=== PATIENT | male | born 1960 | race African-American/Black ===

== ENCOUNTER 2017-06-27 16:22 | Outpatient (CLI) | payer OTHER | END 2017-06-27 16:23 | disposition home or self-care (01) | LOC: BICRAD 16:22 | PROVIDERS: ATTEND Internal Medicine | DX: Z02.71 Encounter for disability determination (principal); M47.896 Other spondylosis, lumbar region | CPT/HCPCS: 72100 ==

== ENCOUNTER 2019-04-11 15:14 | Observation (INO) | payer OTHER, SELFPAY ==
[~2019-04-11 15:14] MED LIST: Iopamidol-370 76% 500 ML 1 ML ONE
[2019-04-11] MEDS ORDERED: Morphine 4 MG/ML VIAL ONE (15:37)
[2019-04-11] MEDS ORDERED: Nitroglycerin 2% Ointment 1 INCH/1 GM Packet ONE (15:37)
[2019-04-11] MEDS ORDERED: Aspirin Chewable 81 MG TAB ONE (15:37)
[2019-04-11] MEDS ORDERED: Ondansetron PF 4 MG/2 ML Vial ONE (15:37)
--- NOTE | 2019-04-11 16:00 | RAD ---
PORTABLE CHEST: 04/11/19 HISTORY: Left sided chest pain x3 days. Heart size is within normal limits. The lungs are clear of any infiltrative process. The lungs are so mewhat hyper expanded. IMPRESSION: No active intrathoracic disease. POS: OFF
[2019-04-11 16:03] LABS: #Basophils 0.1 thou/uL (0.0-0.2); #Eosinphils 0.2 thou/uL (0.0-0.7); #Lymphocytes 3.7 thou/uL (1.20-3.40); #Monocytes 0.7 thou/uL (0.11-0.59); #Neutrophils 5.5 thou/uL (1.40-6.50); %Basophils 0.9 % (0.0-1.0); %Lymphocytes 36.2 % (21.0-51.0); %Monocytes 6.8 % (0.0-10.0); %Neutrophils 54.2 % (42.0-75.0); Hemoglobin 15.5 g/dL (14.0-18.0); Mean Corpuscular HGB CONC 33.4 g/dL (32.0-36.0); Mean Corpuscular Hemoglobin 30.1 pg (27.0-31.0); Mean Corpuscular Volume 90.2 fL (78.0-98.0); Mean Platelet Volume 9.7 fL (7.4-10.4); Platelet Count 176 thou/uL (130-400); RBC Distribution Width 11.7 % (11.5-14.5); Red Blood Cell (RBC) Count 5.15 mill/uL (4.70-6.10); White Blood Cell (WBC) Count 10.2 thou/uL (4.8-10.8)
[2019-04-11 16:24] LABS: ALT (SGPT) 26 U/L (8-55); AST (SGOT) 17 U/L (5-34); Albumin 4.1 g/dL (3.5-5.0); Alkaline Phosphatase 115 U/L (40-110); Anion Gap 14 mmol/L (10-20); BUN (Urea Nitrogen) 14 mg/dL (8.4-25.7); Bilirubin, Total 0.5 mg/dL (0.2-1.2); Calc. Creatinine Clearance 0 mL/min (70-130); Calcium 9.4 mg/dL (7.8-10.44); Carbon Dioxide 29 mmol/L (22-29); Chloride 93 mmol/L (98-107); Estimated GFR-MDRD 57; Globulin 2.9 g/dL (2.4-3.5); Glucose 511 mg/dL (70-105); Lipase 16 U/L (8-78); Potassium 4.6 mmol/L (3.5-5.1); Sodium 131 mmol/L (136-145)
[2019-04-11 16:42] LABS: Free T4 (Free Thyroxine) 1.48 ng/dL (0.70-1.48); Thyroid Stimulating Hormone 0.9691 uIU/mL (0.35-4.94)
--- NOTE | 2019-04-11 17:30 | CT ---
CT ANGIO OF CHEST PERFORMED WITH INTRAVENOUS CONTRAST ENHANCEMENT WITH 3D RECONSTRUCTIONS: 04/11/19 HISTORY: Chest pain. History of smoking. There are severe emphysematous lung changes seen. There is a small pleural based 5 to 6 mm right uppe r lobe pulmonary nodule. There is also a tiny 2 to 3 mm nodule within the left base near the left cos tophrenic angle. No significant mediastinal or hilar adenopathy is appreciated. The thoracic aorta is normal in calibe r. There is suboptimal pulmonary artery opacification. I see no evidence for any large central pulmon ricardo embolus. Suggestion there may be some wall thickening to the distal esophagus raising the possibi lity of reflux. The visualized liver is normal in appearance. IMPRESSION: 1. Severe COPD change. 2. Somewhat limited examination for pulmonary embolus. Bolus is less than optimal but I see no s igns of any central emboli. Small peripheral emboli would not be definitely excluded. 3. Coronary calcifications incidentally seen. POS: [facility]
[2019-04-11] MEDS ORDERED: Dextrose 50% Abboject 50 ML SYRINGE SLOW IVP PRN (18:07)
[2019-04-11] MEDS ORDERED: Acetaminophen 650 MG Suppository PR PRN (18:07)
[2019-04-11] MEDS ORDERED: Ondansetron ODT 4 MG TAB PO PRN (18:07)
[2019-04-11] MEDS ORDERED: Ondansetron PF 4 MG/2 ML Vial IVP PRN (18:07)
[2019-04-11] MEDS ORDERED: Dextrose 5% in Water 1,000 ML IV PRN (18:07)
[2019-04-11 18:08] LABS: Bilirubin Negative (Negative); Blood, Urine Negative (Negative); Clarity Clear (Clear); Glucose, Urine (Dipstick) Greater than 1000 mg/dL (Negative); Leukocyte Negative Leu/uL (Negative); Nitrite Negative (Negative); Protein, Urine (Dipstick) Negative (Neg-Trace); Urobilinogen Normal mg/dL (Less than 2)
--- NOTE | 2019-04-11 18:15 | PDOC.HHP ---
Hospitalist HPI - History of Present Illness N/V x 3 days with chest pain History of Present Illness: Patient states he has had n/v for the last 3 days unable to tolerate anything by mouth. He tries to eat or drink and 10 minutes later begins to vomit excessively. He states the chest pain only occurs once he begins to vomit. He describes a pain across his chest and failing as if his lungs as stretching and he cant get air in as he vomits. Denies any hematemesis. When he is not vomiting, he does not experience chest pain, sob or abdominal pain. Denies any recent cough. He previously smoked, but quit in 03/2018. He denies any diarrhea and has not had a bowel movement in 2-3 days which he feels is due to not being able to keep food down. Denies any abdominal distention. No urinary symptoms. Has not had any recent travels. Reports drinking 2 beers every 4-5 days. Denies any drug use. At present he denies any complaints and states he feels significantly better. ED Course: In the ED he had an EKG showing Sinus Tachycardia, HR [address] changes or Twave abnormalities. He was given Morphine 4 mg, 324 mg of ASA and Nitro Transdermal 1 inch. Also he was given 1 L NS Given tachycardia a CTA was ordered. Labs done were notable for a glucose of 511. CMP notable for Na+ 131, Creat of 1.52, GFR 57, Glucose 511. D-dimer 0.48 Alk phos 115. LFTs normal and lipase normal. CXR showed no acute changes. UA ordered and pending. Hospitalist ROS - Review of Systems Constitutional: denies: fever, chills, sweats, weakness, malaise, other Eyes: denies: pain, vision change, conjunctivae inflammation, eyelid inflammation, redness, other ENT: reports: other (dry mouth). denies: ear pain, ear discharge, nose pain, nose discharge, nose congestion, mouth pain, mouth swelling, throat pain, throat swelling Respiratory: denies: cough, dry, shortness of breath, hemoptysis, SOB with excertion, pleuritic pain, sputum, wheezing, other Cardiovascular: reports: chest pain (brought on by vomiting and lasts 10 seconds.). denies: palpitations, orthopnea, paroxysmal noc. dyspnea, edema, light headedness, other Gastrointestinal: reports: nausea, vomiting (with oral intake). denies: abdominal pain, diarrhea, constipation, melena, hematochezia, other Genitourinary: denies: dysuria, frequency, incontinence, hematuria, retention, other Musculoskeletal: denies: neck pain, shoulder pain, arm pain, back pain, hand pain, leg pain, foot pain, other Skin: denies: rash, lesions, jazlyn, bruising, other Neurological: denies: weakness, numbness, incoordination, change in speech, confusion, seizures, other Hospitalist History - Past Medical History Source: patient Cardiac: reports: HTN Pulmonary: reports: no pertinent history Endocrine: reports: Diabetes - Family History Family History: reports: no pertinent history - Social History Smoking Status: Former smoker (quit in 03/2018) Alcohol: reports: Occassional (2-3 beers a week) Drugs: reports: none Living Situation: Alone Activity level: independent ambulation - Exam General Appearance: NAD, awake alert Eye: PERRL ENT: normocephalic atraumatic, no oropharyngeal lesions, dry oral mucosa Neck: supple, symmetric, no JVD, no thyromegaly, no lymphadenopathy, no carotid bruit Heart: RRR, no murmur, no gallops, no rubs, normal peripheral pulses Respiratory: CTAB, no wheezes, no rales, no ronchi, normal chest expansion, no tachypnea, normal percussion Gastrointestinal: soft, non-tender, non-distended, normal bowel sounds ( hyperactive bowel sounds), no palpable masses, no hepatomegaly, no guarding, no rigidity Extremities: no cyanosis, no clubbing, no edema Skin: normal turgor, no lesions, no rashes Neurological: cranial nerve grossly intact, normal sensation to touch, no weakness, no focal deficits, no new deficit Musculoskeletal: normal tone, normal strength, no muscle wasting Psychiatric: normal affect, normal behavior, A&O x 3 Hospitalist Results - Labs Result Diagrams: 04/11/19 15:42 04/11/19 15:42 Lab results: WBC 10.2 thou/uL (4.8-10.8) 04/11/19 15:42 Hgb 15.5 g/dL (14.0-18.0) 04/11/19 15:42 Hct 46.4 % (42.0-52.0) 04/11/19 15:42 MCV 90.2 fL (78.0-98.0) 04/11/19 15:42 Plt Count 176 thou/uL (130-400) 04/11/19 15:42 Neutrophils % 54.2 % (42.0-75.0) 04/11/19 15:42 Sodium 131 mmol/L (136-145) L 04/11/19 15:42 Potassium 4.6 mmol/L (3.5-5.1) 04/11/19 15:42 Chloride 93 mmol/L (98-107) L 04/11/19 15:42 Carbon Dioxide 29 mmol/L (22-29) 04/11/19 15:42 BUN 14 mg/dL (8.4-25.7) 04/11/19 15:42 Creatinine 1.52 mg/dL (0.7-1.3) H 04/11/19 15:42 Glucose 511 mg/dL (70-105) H 04/11/19 15:42 Calcium 9.4 mg/dL (7.8-10.44) 04/11/19 15:42 Total Bilirubin 0.5 mg/dL (0.2-1.2) 04/11/19 15:42 AST 17 U/L (5-34) 04/11/19 15:42 ALT 26 U/L (8-55) 04/11/19 15:42 Alkaline Phosphatase 115 U/L (40-110) H 04/11/19 15:42 Troponin I Less than 0.010 ng/mL (< 0.028) 04/11/19 15:42 B-Natriuretic Peptide 20.3 pg/mL (0-100) 04/11/19 15:42 Serum Total Protein 7.0 g/dL (6.0-8.3) 04/11/19 15:42 Albumin 4.1 g/dL (3.5-5.0) 04/11/19 15:42 Lipase 16 U/L (8-78) 04/11/19 15:42 Urine Ketones 10 mg/dL (Negative) A 04/11/19 18:00 Urine Blood Negative (Negative) 04/11/19 18:00 Urine Nitrite Negative (Negative) 04/11/19 18:00 Ur Leukocyte Esterase Negative Марина/uL (Negative) 04/11/19 18:00 - Radiology Interpretation CT scan - chest Status: report reviewed by me Hospitalist H&P A/P - Problem (1) Atypical chest pain Code(s): R07.89 - OTHER CHEST PAIN Status: Resolved (2) Nausea and vomiting Code(s): R11.2 - NAUSEA WITH VOMITING, UNSPECIFIED Status: Acute (3) JAQUELINE (acute kidney injury) Code(s): N17.9 - ACUTE KIDNEY FAILURE, UNSPECIFIED Status: Acute (4) Hypertension Code(s): I10 - ESSENTIAL (PRIMARY) HYPERTENSION Status: Chronic (5) Hyperglycemia Code(s): R73.9 - HYPERGLYCEMIA, UNSPECIFIED Status: Acute (6) Diabetes mellitus Code(s): E11.9 - TYPE 2 DIABETES MELLITUS WITHOUT COMPLICATIONS Status: Chronic (7) Former smoker Status: Chronic - Plan Plan: Trend troponins. Echo ordered per discussion with Dr. Tinoco. Continuous cardiac monitoring. Awaiting CTA ordered by Dr. Ty. UDS/UA w/ UCx. Check alcohol level. Add-on Mg+, BNP, Lipid panel. KUB Monitor renal function. Pseudohyponatremia, due to hyperglycemia. Monitor glucose, sliding scale ordered. Check ketones. IV protonix and IV antiemetics. Diet: clear liquid, advance as tolerated. CODE STATUS: FULL Surrogate decision maker is his friend Devanteneela Arnold. ADDENDUM: Discussed with Dr. Tinoco. CTA negative for PE. KUB unremarkable. Patient severely dehydrated, advised 1L NS, then NS at 150 cc/hr. Monitor glucose, likely to come down with fluids.
[2019-04-11 18:36] LABS: Amphetamine Not Detected (NotDetected); Barbiturates Screen Not Detected (NotDetected); Benzodiazepine Screen Not Detected (NotDetected); Cocaine Metabolite Screen Detected (NotDetected); Medtox Control Line Valid? VALID (VALID); Medtox Reader # READER 4; Methadone Not Detected (NotDetected); Methamphetamine Not Detected (NotDetected); Opiate Screen Detected (NotDetected); Oxycodone Screen Not Detected (NotDetected); Phencyclidine (PCP) Not Detected (NotDetected); THC/Cannabinoid Screen Detected (NotDetected); Tricyclic Screen Not Detected (NotDetected)
--- NOTE | 2019-04-11 18:38 | RAD ---
KUB: 04/11/19 HISTORY: Left sided pain. Constipation. The bowel gas pattern is nonobstructed. There is a mild amount of stool present within the right rolle sverse colon. Contrast from a previous CT is seen within the kidneys and bladder. Mild arthritic lerner ges of the spine and hips are seen. IMPRESSION: No acute changes. POS: [facility]
[2019-04-11] MEDS ORDERED: Sodium Chloride 0.45% 1,000 ML IV SCH (18:45)
[2019-04-11 19:10] LABS: Phosphorus 2.9 mg/dL (2.3-4.7)
[2019-04-11 19:10] LABS: Troponin I 0.019 ng/mL (< 0.028)
[2019-04-11] MEDS ORDERED: Sodium Chloride 0.9% 1,000 ML IV SCH (19:15)
[2019-04-11 20:35] VITALS: BMI 19.2
[2019-04-11] MEDS ORDERED: Famotidine/PF 20 mg/2ml Vial SLOW IVP SCH (21:00)
[2019-04-11] MEDS: HumaLOG 300 UNITS/3 ML VIAL SC PRN (21:01)
[2019-04-11] MEDS: Sodium Chloride 0.9% 1,000 ML IV SCH (21:09)
[2019-04-11 22:30] LABS: Alcohol Less than 10 mg/dL (Less than 10); CK (CPK) 155 U/L (30-200)
[2019-04-11 22:35] LABS: Troponin I 0.015 ng/mL (< 0.028)
[2019-04-12] MEDS: Sodium Chloride 0.9% 1,000 ML IV SCH ×2 (04:04→12:13)
[2019-04-12 05:31] LABS: #Basophils 0.1 thou/uL (0.0-0.2); #Eosinphils 0.3 thou/uL (0.0-0.7); #Lymphocytes 4.3 thou/uL (1.20-3.40); #Monocytes 0.6 thou/uL (0.11-0.59); #Neutrophils 4.2 thou/uL (1.40-6.50); %Basophils 0.5 % (0.0-1.0); %Eosinophils 2.8 % (0.0-10.0); %Lymphocytes 45.7 % (21.0-51.0); %Monocytes 6.7 % (0.0-10.0); %Neutrophils 44.3 % (42.0-75.0); Hemoglobin 12.5 g/dL (14.0-18.0); Mean Corpuscular HGB CONC 34.8 g/dL (32.0-36.0); Mean Corpuscular Hemoglobin 31.8 pg (27.0-31.0); Mean Corpuscular Volume 91.5 fL (78.0-98.0); Mean Platelet Volume 9.2 fL (7.4-10.4); Platelet Count 153 thou/uL (130-400); RBC Distribution Width 11.6 % (11.5-14.5); Red Blood Cell (RBC) Count 3.93 mill/uL (4.70-6.10); White Blood Cell (WBC) Count 9.4 thou/uL (4.8-10.8)
[2019-04-12 05:36] LABS: Anion Gap 9 mmol/L (10-20); BUN (Urea Nitrogen) 10 mg/dL (8.4-25.7); Calc. Creatinine Clearance 82 mL/min (70-130); Calcium 8.1 mg/dL (7.8-10.44); Carbon Dioxide 26 mmol/L (22-29); Chloride 104 mmol/L (98-107); Estimated GFR-MDRD Greater than 90; Glucose 238 mg/dL (70-105); Potassium 3.8 mmol/L (3.5-5.1); Sodium 135 mmol/L (136-145)
[2019-04-12] MEDS: HumaLOG 300 UNITS/3 ML VIAL SC PRN ×3 (06:11→21:00)
[2019-04-12] MEDS: Aspirin 81 mg Enteric Coated Tablet PO SCH (08:48)
[2019-04-12] MEDS: Pantoprazole 40 MG VIAL IVP SCH (08:49)
[2019-04-12] MEDS ORDERED: Lisinopril 5 MG TAB PO SCH (09:00)
--- NOTE | 2019-04-12 13:12 | NM ---
EXAM: CARDIAC SPECT HISTORY: Chest pain, hypertension, diabetes mellitus type 2 TECHNIQUE: A myocardial perfusion scan was performed using the single isotope 1 day protocol with papa hnetium 99m sestamibi. [10 mCi] was injected intravenously for the rest exam followed by 30 mCi for the stress study. Exercise stress was monitored and interpreted by Dr. Ulloa FINDINGS: Homogeneous tracer distribution is seen in the myocardial segments on stress and rest image s without fixed or reversible defects. Gated SPECT LVEF: 47% Wall motion exam: Mild global hypokinesis IMPRESSION: No evidence of reversible ischemia.
[2019-04-12] MEDS: Carvedilol 6.25 MG TAB PO SCH (16:18)
--- NOTE | 2019-04-12 18:17 | PDOC.HOSPP ---
- Subjective Encounter Date: 04/12/19 Encounter Time: 18:14 Subjective: Pt seen for followup re: cardiomyopathy. States he feels better. - Objective Vital Signs & Weight: Vital Signs (12 hours) Temp Pulse Resp BP Pulse Ox 04/12/19 15:20 98.4 F 92 17 160/81 H 98 04/12/19 12:40 97.8 F 86 18 141/71 H 98 04/12/19 08:49 94 04/12/19 07:28 98.2 F 94 16 132/72 97 Weight Weight 150 lb I&O: 04/11/19 04/12/19 04/13/19 06:59 06:59 06:59 Intake Total 1999 1190 Balance 1999 1190 Result Diagrams: 04/12/19 04:49 04/12/19 04:49 Additional Labs: Accuchecks 04/12/19 04/12/19 04/11/19 16:22 12:40 21:00 POC Glucose 351 H 250 H 424 H 04/11/19 18:56 POC Glucose 421 H Labs and MARs reviewed by mt Hospitalist ROS - Review of Systems Cardiovascular: denies: chest pain, palpitations, orthopnea, paroxysmal noc. dyspnea, edema, light headedness Gastrointestinal: denies: nausea, vomiting, abdominal pain, diarrhea, constipation, melena, hematochezia - Medication Medications: Active Medications Generic Name Dose Route Start Last Admin Trade Name Freq PRN Reason Stop Dose Admin Aspirin 81 mg 04/12/19 09:00 04/12/19 08:48 Ecotrin PO 81 mg DAILY MO Administration Carvedilol 6.25 mg 04/12/19 17:00 04/12/19 16:18 Coreg PO 6.25 mg BID-WM MO Administration Insulin Human Lispro 0 units 04/11/19 18:07 04/12/19 16:53 Humalog SC 6 unit .MILD SLIDING SCALE PRN Administration Mild Correctional Scale Insulin Human Lispro 0 units 04/11/19 18:07 04/11/19 21:01 Humalog SC 5 unit .BEDTIME SLIDING SC PRN Administration Bedtime Correctional Scale Pantoprazole Sodium 40 mg 04/12/19 09:00 04/12/19 08:49 Protonix IVP 40 mg DAILY MO Administration - Exam General Appearance: NAD Eye: anicteric sclera ENT: moist mucosa Neck: supple Heart: RRR, no rubs Respiratory: CTAB, no rales Gastrointestinal: soft, non-tender, normal bowel sounds Extremities: no clubbing Psychiatric: normal affect, normal behavior Hosp A/P (1) Cardiomyopathy Code(s): I42.9 - CARDIOMYOPATHY, UNSPECIFIED Status: Acute (2) Hyponatremia Code(s): E87.1 - HYPO-OSMOLALITY AND HYPONATREMIA Status: Acute (3) Diabetes mellitus Code(s): E11.9 - TYPE 2 DIABETES MELLITUS WITHOUT COMPLICATIONS Status: Chronic (4) Hypertension Code(s): I10 - ESSENTIAL (PRIMARY) HYPERTENSION Status: Chronic (5) Chest pain Code(s): R07.9 - CHEST PAIN, UNSPECIFIED Status: Resolved (6) JAQUELINE (acute kidney injury) Code(s): N17.9 - ACUTE KIDNEY FAILURE, UNSPECIFIED Status: Resolved - Plan Pt started on Coreg and lisinopril. Stress test negative. hyponatremia mild, likely asymptomatic. Monitor vital signs, titrate antihypertensives as needed. Resume home Lantus
[2019-04-12] MEDS ORDERED: Insulin Glargine 10 UNITS in Pre-Filled Syringe SC SCH (21:00)
[2019-04-12] MEDS ORDERED: Atorvastatin Calcium 20 MG TAB PO SCH (21:00)
[2019-04-12] MEDS: Lisinopril 5 MG TAB PO SCH (21:01)
--- NOTE | 2019-04-12 22:21 | CON ---
DATE OF CONSULTATION: HISTORY OF PRESENT ILLNESS: This patient is a 58-year-old gentleman, presented with nausea, vomiting, and chest discomfort. The patient was in his usual state of health when he recently developed nausea and vomiting. Whenever he throws up, he would develop chest discomfort. The patient states when this resolved, he has had no further chest discomfort. The patient has several cardiac risk factors including diabetes mellitus, hypertension, and a past history of tobacco abuse. PAST MEDICAL HISTORY: 1. Diabetes mellitus. 2. Hypertension. PAST SURGICAL HISTORY: None. SOCIAL HISTORY: Long history of tobacco abuse and a previous history of excess ethanol use. FAMILY HISTORY: No strong family history of heart disease. ALLERGIES: NO KNOWN DRUG ALLERGIES. REVIEW OF SYSTEMS: Ten-point system otherwise unremarkable. PHYSICAL EXAMINATION: GENERAL: A well-developed gentleman, in no acute distress. VITAL SIGNS: Blood pressure is 141/70. NECK: No jugular venous distention. LUNGS: Clear to auscultation. HEART: Regular rate and rhythm. Normal S1, S2. No murmurs. ABDOMEN:Nondistended. EXTREMITIES: Show no edema. VASCULAR: Radial pulses 2+. LABORATORY DATA: Sodium 135, potassium 3.8, chloride 104, bicarbonate 26, BUN was 10, and creatinine was 0.94. Troponin was 0.015. BNP was 20. EKG revealed sinus tachycardia and left atrial enlargement. Cardiolite stress test: The patient exercised for 7 minutes on a Abdirizak Cardiolite. He did not develop chest pain. There was no significant ST depression. Normal exercise treadmill test. Cardiolite images revealed no evidence of ischemia. Left ventricular ejection fraction was diminished at 47%. Echocardiogram revealed moderate decreased left ventricular ejection fraction at 35% to 40% with global hypokinesis. IMPRESSION: 1. Atypical chest pain with no evidence of ischemia. 2. Cardiomyopathy. 3. Diabetes mellitus. 4. Hypertension. 5. Ethanol abuse. This gentleman presented with atypical chest pain with no evidence of ischemia on an exercise treadmill test or on Cardiolite images. He most likely has a nonischemic cardiomyopathy. The patient needs to be started on beta-bridgette therapy. We will add Coreg. We will increase the dose of his lisinopril. It is imperative this patient no longer consume alcohol. We will follow this patient with you through his hospitalization. Job ID: [id number] [facility]
[2019-04-13 08:03] VITALS: BP 131/70; TEMP 98.4
[2019-04-13] MEDS: Aspirin 81 mg Enteric Coated Tablet PO SCH (08:12)
[2019-04-13] MEDS: Lisinopril 5 MG TAB PO SCH (08:12)
[2019-04-13] MEDS: Carvedilol 6.25 MG TAB PO SCH (08:12)
[2019-04-13] MEDS: Pantoprazole 40 MG VIAL IVP SCH ×2 (08:13→08:59)
[2019-04-13] MEDS ORDERED: Insulin Glargine 20 UNITS in Pre-Filled Syringe SC SCH (09:00)
--- NOTE | 2019-04-13 12:28 | DIS ---
DATE OF ADMISSION: 04/11/2019 DATE OF DISCHARGE: 04/13/2019 DISCHARGE DISPOSITION: To home. PRIMARY DISCHARGE DIAGNOSES: 1. Chest pain, which is noncardiac. 2. Nonischemic cardiomyopathy with ejection fraction of 35%. 3. Cocaine abuse. 4. Marijuana abuse. 5. Diabetes mellitus, type 2. 6. Hypertension. 7. Chronic obstructive pulmonary disease. PROCEDURES DONE DURING HOSPITALIZATION: The patient has had echo with 2D Doppler done, which showed EF of 35% with global hypokinesis. Stress test showed no reversible ischemia. Urine drug screen was positive for cocaine, marijuana, and opiates. CT angio chest done showed changes suggestive of COPD. Coronary calcifications were seen. No pulmonary embolus was seen. H and H of 12 and 35, platelet count 153. Troponin x3 was negative. Free T4 of 1.48. TSH 0.96. BNP 20. DISCHARGE MEDICATIONS: 1. Aspirin 81 mg p.o. daily. 2. Enalapril 5 mg p.o. daily. 3. Lantus 20 units subcu q.a.m. and at bedtime. 4. Coreg 6.25 mg twice daily. ALLERGIES: NO KNOWN DRUG ALLERGIES. INPATIENT CONSULT: Dr. Ulloa for Cardiology. DISCHARGE PLAN: The patient to follow up with his primary care physician, Dr. Hardin in 1 week, Dr. Ulloa as advised. BRIEF COURSE DURING HOSPITALIZATION: The patient initially came in with complaints of chest pain along with nausea and vomiting. He has had 3 sets of troponin done, which was negative. Nuclear stress test showed no reversible ischemia, but had global hypokinesis. Urine drug screen was positive for cocaine and marijuana. He initially had some acute kidney injury, which got resolved. Echo with 2D Doppler done showed EF of 35% to 40% percent with moderate mitral regurgitation. He was evaluated by Dr. Ulloa as well. The patient is hemodynamically stable and is cleared for discharge. He was counseled with regard to complete cessation of alcohol and drugs. He was also counseled with regard to compliance with medication. The patient needs to have a repeat echo with 2D Doppler in 6 months to see if his EF has improved. He needs to follow up with Dr. Ulloa as advised. Please note, I have seen and examined the patient on the day of discharge. Job ID: [id number] [facility]
[2019-04-13] MEDS ORDERED: Insulin Glargine 20 UNITS in Pre-Filled Syringe 1 EACH SC SCH (21:00)
== END 2019-04-13 10:32 | disposition home or self-care (01) ==
LOC: ERS 15:14 → 2SW 17:12
PROVIDERS: ADMIT Family Medicine; ATTEND Family Medicine
DX: R07.89 Other chest pain (principal); I42.8 Other cardiomyopathies; F14.10 Cocaine abuse, uncomplicated; F12.10 Cannabis abuse, uncomplicated; E11.65 Type 2 diabetes mellitus with hyperglycemia; I10 Essential (primary) hypertension; J44.9 Chronic obstructive pulmonary disease, unspecified; N17.9 Acute kidney failure, unspecified; I25.10 Atherosclerotic heart disease of native coronary artery without angina pectoris; E87.1 Hypo-osmolality and hyponatremia; F10.10 Alcohol abuse, uncomplicated; Z87.891 Personal history of nicotine dependence; Z79.4 Long term (current) use of insulin; Z79.82 Long term (current) use of aspirin; Z79.899 Other long term (current) drug therapy
CPT/HCPCS: 36415; 36416; 71045; 71275; 74018; 78452; 80048; 80053; 80306; 80307; 81003; 82010; 82550; 83690; 83735; 83880; 84100; 84439; 84443; 84484; 85025; 85379; 93005; 93017; 93306; 96361; 96374; 96375; A9500; C9113; G0378; J1815; J2270; J2405; Q9967

== ENCOUNTER 2020-01-25 14:59 | Outpatient (CLI) | payer OTHER ==
--- NOTE | 2020-01-25 16:59 | RAD ---
Exam: Lumbar spine 2 views HISTORY: Disability evaluation FINDINGS: 5 lumbar type vertebra. Pseudoarthrosis of the left L5 ala with the sacrum. Preserved disc space height. No fracture. No spondylolisthesis or spondylolysis. Visualized sacrum and bony pelvis are intact. IMPRESSION: 5 lumbar type vertebra, without evidence of fracture. Pseudoarthrosis of the left L5 ala and the sacrum.
--- NOTE | 2020-01-26 07:49 | RAD ---
Exam: XR Knee Rt 2 View HISTORY: Disability exam. COMPARISON: None FINDINGS: No acute fracture, dislocation, or other acute osseous abnormality is identified. Minimal vascular calcifications are seen posterior to the knee. IMPRESSION: No acute osseous abnormality is identified.
--- NOTE | 2020-01-26 08:55 | RAD ---
2 VIEW CHEST: Date: 01/25/2020 HISTORY: Disability evaluation. FINDINGS: Lung garcia are clear. Heart and mediastinum appear normal. Osseous structures are unremarkable. IMPRESSION: Unremarkable chest. POS: OFF
== END 2020-01-25 15:00 | disposition home or self-care (01) ==
LOC: BICRAD 14:59
PROVIDERS: ATTEND Internal Medicine
DX: Z02.71 Encounter for disability determination (principal); Q76.49 Other congenital malformations of spine, not associated with scoliosis
CPT/HCPCS: 71046; 72100

== ENCOUNTER 2020-07-19 04:08 | Emergency (ER) | payer SELFPAY ==
[2020-07-19] MEDS ORDERED: Dextrose 50% Abboject 50 ML SYRINGE ONE (05:03)
== END 2020-07-19 06:50 | disposition home or self-care (01) ==
LOC: ERS 04:08
DX: E11.649 Type 2 diabetes mellitus with hypoglycemia without coma (principal); I10 Essential (primary) hypertension; Z87.891 Personal history of nicotine dependence
CPT/HCPCS: 36416; 96374

== ENCOUNTER 2020-07-20 15:01 | Inpatient (IN) | payer SELFPAY ==
[2020-07-20 15:55] LABS: #Monocytes 0.9 thou/uL (0.11-0.59); #Neutrophils 12.1 thou/uL (1.40-6.50); %Basophils 0.2 % (0.0-1.0); %Lymphocytes 13.2 % (21.0-51.0); %Monocytes 5.8 % (0.0-10.0); %Neutrophils 80.7 % (42.0-75.0); Hemoglobin 15.7 g/dL (14.0-18.0); Mean Corpuscular HGB CONC 32.5 g/dL (32.0-36.0); Mean Corpuscular Hemoglobin 30.9 pg (27.0-31.0); Platelet Count 231 thou/uL (130-400); RBC Distribution Width 12.8 % (11.5-14.5); Red Blood Cell (RBC) Count 5.07 mill/uL (4.70-6.10); White Blood Cell (WBC) Count 14.9 thou/uL (4.8-10.8)
[2020-07-20 16:14] LABS: ALT (SGPT) 39 U/L (8-55); AST (SGOT) 57 U/L (5-34); Albumin 4.4 g/dL (3.5-5.0); Alkaline Phosphatase 87 U/L (40-110); Anion Gap 14 mmol/L (10-20); BUN (Urea Nitrogen) 13 mg/dL (8.4-25.7); Bilirubin, Total 0.5 mg/dL (0.2-1.2); Calc. Creatinine Clearance 0 mL/min (70-130); Calcium 9.2 mg/dL (7.8-10.44); Carbon Dioxide 31 mmol/L (22-29); Chloride 95 mmol/L (98-107); Globulin 3.2 g/dL (2.4-3.5); Lipase 5 U/L (8-78); Potassium 3.9 mmol/L (3.5-5.1); Protein, Total 7.6 g/dL (6.0-8.3); Sodium 136 mmol/L (136-145)
[2020-07-20] MEDS ORDERED: Acetaminophen 500 MG TAB ONE (16:20)
[2020-07-20 16:23] LABS: Glucose 53 mg/dL (70-105)
[2020-07-20 17:16] LABS: Bacteria/HPF None Seen HPF (None Seen); Bilirubin Negative (Negative); Blood, Urine Negative (Negative); Clarity Clear (Clear); Glucose, Urine (Dipstick) >=1000 mg/dL (Negative); Ketone, Urine Negative (Negative); Leukocyte Negative Leu/uL (Negative); Nitrite Negative (Negative); Protein, Urine (Dipstick) 100 mg/dL (Neg-Trace); RBC/HPF 0-3 HPF (0-3); Specific Gravity, Urine 1.023 (1.002-1.036); Squamous Epithelial 0-3 HPF (0-3); Urobilinogen Normal mg/dL (Less than 2); WBC/HPF 0-3 HPF (0-3); pH, Urine 7.5 (5.0-9.0)
[2020-07-20 19:58] VITALS: BMI 24.9
[2020-07-20] MEDS ORDERED: Ondansetron PF 4 MG/2 ML Vial IVP PRN (20:53)
[2020-07-20] MEDS ORDERED: Dextrose 50% Abboject 50 ML SYRINGE SLOW IVP PRN (20:53)
[2020-07-20] MEDS ORDERED: Dextrose 5% in Water 1,000 ML IV PRN (20:53)
[2020-07-20] MEDS ORDERED: Ondansetron ODT 4 MG TAB PO PRN (20:53)
[2020-07-21] MEDS ORDERED: Piperacillin/Tazobactam 4.5 GM in Sodium Chloride 0.9% 100 ML IVPB SCH (03:00)
[2020-07-21 04:15] LABS: SARS-CoV-2 PCR by NAA Not Detected (NotDetected)
[2020-07-21 04:20] LABS: Amphetamine Not Detected (NotDetected); Barbiturates Screen Not Detected (NotDetected); Benzodiazepine Screen Not Detected (NotDetected); Cocaine Metabolite Screen Detected (NotDetected); Medtox Control Line Valid? VALID (VALID); Medtox Reader # READER 4; Methadone Not Detected (NotDetected); Methamphetamine Not Detected (NotDetected); Opiate Screen Not Detected (NotDetected); Oxycodone Screen Not Detected (NotDetected); Phencyclidine (PCP) Not Detected (NotDetected); THC/Cannabinoid Screen Detected (NotDetected); Tricyclic Screen Not Detected (NotDetected)
[2020-07-21] MEDS: HumaLOG 300 UNITS/3 ML VIAL SC PRN ×3 (06:26→18:04)
[2020-07-21] MEDS: Enoxaparin Sodium 40 MG/0.4 ML SYRINGE SC SCH (09:34)
[2020-07-21 11:26] LABS: #Basophils 0.1 thou/uL (0.0-0.2); #Eosinphils 0.2 thou/uL (0.0-0.7); #Lymphocytes 3.1 thou/uL (1.20-3.40); #Monocytes 1.2 thou/uL (0.11-0.59); #Neutrophils 8.7 thou/uL (1.40-6.50); %Basophils 0.8 % (0.0-1.0); %Eosinophils 1.5 % (0.0-10.0); %Lymphocytes 23.4 % (21.0-51.0); %Monocytes 8.7 % (0.0-10.0); %Neutrophils 65.6 % (42.0-75.0); Hemoglobin 16.8 g/dL (14.0-18.0); Mean Corpuscular HGB CONC 32.7 g/dL (32.0-36.0); Mean Corpuscular Hemoglobin 31.3 pg (27.0-31.0); Mean Corpuscular Volume 95.7 fL (78.0-98.0); Mean Platelet Volume 8.2 fL (7.4-10.4); Platelet Count 214 thou/uL (130-400); RBC Distribution Width 13.2 % (11.5-14.5); Red Blood Cell (RBC) Count 5.38 mill/uL (4.70-6.10); White Blood Cell (WBC) Count 13.3 thou/uL (4.8-10.8)
[2020-07-21 11:51] LABS: Anion Gap 18 mmol/L (10-20); BUN (Urea Nitrogen) 13 mg/dL (8.4-25.7); Calc. Creatinine Clearance 72 mL/min (70-130); Calcium 9.3 mg/dL (7.8-10.44); Carbon Dioxide 21 mmol/L (22-29); Chloride 100 mmol/L (98-107); Glucose 213 mg/dL (70-105); Potassium 3.9 mmol/L (3.5-5.1); Sodium 135 mmol/L (136-145)
[2020-07-21] MEDS: hydrALAZINE 20 MG/ML VIAL SLOW IVP PRN (12:02)
[2020-07-21] MEDS ORDERED: Lantus 1000 UNITS/10 ML VIAL SC SCH (12:45)
[2020-07-21] MEDS ORDERED: Sodium Chloride 0.9% 1,000 ML IV SCH (17:45)
[2020-07-21] MEDS: Carvedilol 6.25 MG TAB PO SCH (18:04)
[2020-07-21] MEDS: Atorvastatin Calcium 20 MG TAB PO SCH (20:38)
[2020-07-22] MEDS: hydrALAZINE 20 MG/ML VIAL SLOW IVP PRN ×2 (00:09→15:37)
[2020-07-22] MEDS: HumaLOG 300 UNITS/3 ML VIAL SC PRN ×2 (05:49→12:14)
[2020-07-22] MEDS: Carvedilol 6.25 MG TAB PO SCH ×2 (08:55→17:10)
[2020-07-22] MEDS ORDERED: HumaLOG 300 UNITS/3 ML VIAL SC PRN (08:56)
[2020-07-22] MEDS: Lantus 1000 UNITS/10 ML VIAL SC SCH (08:59)
[2020-07-22] MEDS ORDERED: Piperacillin/Tazobactam 3.375 GM in Sodium Chloride 0.9% 100 ML IVPB SCH (09:00)
[2020-07-22] MEDS ORDERED: Lisinopril 5 MG TAB PO SCH (09:00)
[2020-07-22] MEDS: Enoxaparin Sodium 40 MG/0.4 ML SYRINGE SC SCH (09:00)
[2020-07-22] MEDS: Piperacillin/Tazobactam 3.375 GM in Sodium Chloride 0.9% 100 ML IVPB SCH ×2 (11:15→17:10)
[2020-07-22] MEDS: Ketorolac Tromethamine 30 MG/ML VIAL IVP SCH ×2 (15:37→21:55)
[2020-07-22] MEDS: Atorvastatin Calcium 20 MG TAB PO SCH (20:44)
[2020-07-23] MEDS: Piperacillin/Tazobactam 3.375 GM in Sodium Chloride 0.9% 100 ML IVPB SCH ×4 (00:19→19:20)
[2020-07-23] MEDS: Ketorolac Tromethamine 30 MG/ML VIAL IVP SCH ×3 (04:17→17:06)
[2020-07-23] MEDS: hydrALAZINE 20 MG/ML VIAL SLOW IVP PRN (04:42)
[2020-07-23 05:34] LABS: #Basophils 0.1 thou/uL (0.0-0.2); #Eosinphils 0.3 thou/uL (0.0-0.7); #Lymphocytes 2.8 thou/uL (1.20-3.40); #Monocytes 1.2 thou/uL (0.11-0.59); %Basophils 0.7 % (0.0-1.0); %Eosinophils 2.1 % (0.0-10.0); %Lymphocytes 20.9 % (21.0-51.0); %Neutrophils 67.3 % (42.0-75.0); Hemoglobin 13.8 g/dL (14.0-18.0); Mean Corpuscular HGB CONC 32.1 g/dL (32.0-36.0); Mean Corpuscular Hemoglobin 30.8 pg (27.0-31.0); Mean Platelet Volume 8.3 fL (7.4-10.4); Platelet Count 214 thou/uL (130-400); RBC Distribution Width 12.9 % (11.5-14.5); Red Blood Cell (RBC) Count 4.49 mill/uL (4.70-6.10); White Blood Cell (WBC) Count 13.4 thou/uL (4.8-10.8)
[2020-07-23 05:54] LABS: Anion Gap 16 mmol/L (10-20); BUN (Urea Nitrogen) 16 mg/dL (8.4-25.7); Calc. Creatinine Clearance 74 mL/min (70-130); Calcium 8.6 mg/dL (7.8-10.44); Carbon Dioxide 22 mmol/L (22-29); Chloride 100 mmol/L (98-107); Glucose 192 mg/dL (70-105); Potassium 3.5 mmol/L (3.5-5.1); Sodium 134 mmol/L (136-145)
[2020-07-23] MEDS: HumaLOG 300 UNITS/3 ML VIAL SC PRN (06:04)
[2020-07-23] MEDS ORDERED: Lorazepam 2 MG/ML VIAL SLOW IVP PRN (08:33)
[2020-07-23] MEDS ORDERED: Lorazepam 2 MG/ML VIAL SLOW IVP SCH ×2 (08:45→17:15)
[2020-07-23] MEDS: Carvedilol 6.25 MG TAB PO SCH ×2 (08:51→18:17)
[2020-07-23] MEDS: Lisinopril 10 MG TAB PO SCH ×2 (08:52→20:36)
[2020-07-23] MEDS ORDERED: Lisinopril 5 MG TAB PO SCH (09:00)
[2020-07-23] MEDS: Lantus 1000 UNITS/10 ML VIAL SC SCH (09:24)
[2020-07-23] MEDS ORDERED: Sodium Chloride 0.9% 1,000 ML IV SCH (12:00)
[2020-07-23] MEDS: Lorazepam 2 MG/ML VIAL SLOW IVP PRN ×2 (16:13→17:02)
[2020-07-23] MEDS ORDERED: levETIRAcetam 2,000 MG in Sodium Chloride 0.9% 100 ML IVPB SCH (17:15)
[2020-07-23] MEDS ORDERED: Lacosamide 400 MG in Sodium Chloride 0.9% 50 ML IVPB SCH (17:15)
[2020-07-23] MEDS: Atorvastatin Calcium 20 MG TAB PO SCH (20:36)
[2020-07-24] MEDS: Piperacillin/Tazobactam 3.375 GM in Sodium Chloride 0.9% 100 ML IVPB SCH ×3 (00:08→11:24)
[2020-07-24] MEDS ORDERED: Lacosamide 200 MG in Sodium Chloride 0.9% 50 ML IVPB SCH (06:00)
[2020-07-24] MEDS ORDERED: levETIRAcetam in NS 1,500 MG in Premix Bag 1 BAG IVPB SCH (06:00)
[2020-07-24 09:00] LABS: #Basophils 0.1 thou/uL (0.0-0.2); #Eosinphils 0.6 thou/uL (0.0-0.7); #Lymphocytes 2.1 thou/uL (1.20-3.40); #Monocytes 0.7 thou/uL (0.11-0.59); #Neutrophils 4.8 thou/uL (1.40-6.50); %Eosinophils 7.2 % (0.0-10.0); %Monocytes 8.9 % (0.0-10.0); %Neutrophils 57.8 % (42.0-75.0); Hemoglobin 12.8 g/dL (14.0-18.0); Mean Corpuscular HGB CONC 32.1 g/dL (32.0-36.0); Mean Corpuscular Hemoglobin 31.2 pg (27.0-31.0); Mean Platelet Volume 7.8 fL (7.4-10.4); Platelet Count 181 thou/uL (130-400); White Blood Cell (WBC) Count 8.2 thou/uL (4.8-10.8)
[2020-07-24 09:22] LABS: ALT (SGPT) 34 U/L (8-55); AST (SGOT) 43 U/L (5-34); Albumin 2.9 g/dL (3.5-5.0); Alkaline Phosphatase 63 U/L (40-110); Anion Gap 11 mmol/L (10-20); BUN (Urea Nitrogen) 12 mg/dL (8.4-25.7); Bilirubin, Total 0.8 mg/dL (0.2-1.2); Calc. Creatinine Clearance 88 mL/min (70-130); Calcium 8.1 mg/dL (7.8-10.44); Carbon Dioxide 26 mmol/L (22-29); Chloride 105 mmol/L (98-107); Globulin 2.4 g/dL (2.4-3.5); Glucose 116 mg/dL (70-105); Potassium 3.6 mmol/L (3.5-5.1); Protein, Total 5.3 g/dL (6.0-8.3); Sodium 138 mmol/L (136-145)
[2020-07-24] MEDS: Carvedilol 6.25 MG TAB PO SCH ×2 (11:23→18:39)
[2020-07-24] MEDS: Lisinopril 10 MG TAB PO SCH ×2 (11:24→20:15)
[2020-07-24] MEDS: Lantus 1000 UNITS/10 ML VIAL SC SCH (11:25)
[2020-07-24] MEDS ORDERED: Lorazepam 2 MG/ML VIAL SLOW IVP PRN (11:30)
[2020-07-24] MEDS: NS 0.9% w/ 20 MEQ KCL 1,000 ML/1,000 ML BAG IV SCH (14:27)
[2020-07-24] MEDS: Atorvastatin Calcium 20 MG TAB PO SCH (20:15)
[2020-07-25] MEDS: NS 0.9% w/ 20 MEQ KCL 1,000 ML/1,000 ML BAG IV SCH (01:18)
[2020-07-25] MEDS: Lisinopril 10 MG TAB PO SCH ×2 (09:45→21:01)
[2020-07-25] MEDS: Tamsulosin HCl 0.4 MG CAP PO SCH (09:45)
[2020-07-25] MEDS: Carvedilol 6.25 MG TAB PO SCH ×2 (09:47→16:55)
[2020-07-25] MEDS ORDERED: Propranolol 10 MG TAB PO SCH (14:00)
[2020-07-25] MEDS: HumaLOG 300 UNITS/3 ML VIAL SC PRN (16:57)
[2020-07-25] MEDS: Atorvastatin Calcium 20 MG TAB PO SCH (21:01)
[2020-07-26] MEDS: Carvedilol 6.25 MG TAB PO SCH ×2 (08:13→17:51)
[2020-07-26] MEDS: Tamsulosin HCl 0.4 MG CAP PO SCH (08:13)
[2020-07-26] MEDS: Lisinopril 10 MG TAB PO SCH ×2 (08:13→21:06)
[2020-07-26] MEDS: Propranolol 10 MG TAB PO SCH (08:13)
[2020-07-26] MEDS: HumaLOG 300 UNITS/3 ML VIAL SC PRN (17:53)
[2020-07-26] MEDS: Atorvastatin Calcium 20 MG TAB PO SCH (21:05)
[2020-07-27] MEDS: HumaLOG 300 UNITS/3 ML VIAL SC PRN ×3 (05:06→16:51)
[2020-07-27] MEDS: Propranolol 10 MG TAB PO SCH (08:14)
[2020-07-27] MEDS: Lisinopril 10 MG TAB PO SCH (08:14)
[2020-07-27] MEDS: Tamsulosin HCl 0.4 MG CAP PO SCH (08:14)
[2020-07-27] MEDS: Carvedilol 6.25 MG TAB PO SCH (08:14)
[2020-07-27] MEDS ORDERED: Carvedilol 25 MG TAB PO SCH ×2 (08:30→17:00)
[2020-07-27] MEDS ORDERED: Lisinopril 10 MG TAB PO SCH ×3 (08:30→21:00)
[2020-07-27] MEDS ORDERED: Carvedilol 6.25 MG TAB PO SCH (09:00)
[2020-07-27 16:14] VITALS: BP 161/82; TEMP 98.2
== END 2020-07-27 17:17 | disposition home health service (06) | DRG 637 ==
LOC: ERS 15:01 → SURG A 18:24 → OBSVTOIN 07-22 08:56 → IMCU/EMU 07-23 10:12 → T4-B 07-26 09:15
PROVIDERS: ADMIT Internal Medicine; ATTEND Internal Medicine
DX: E11.649 Type 2 diabetes mellitus with hypoglycemia without coma (principal); G93.41 Metabolic encephalopathy; R65.10 Systemic inflammatory response syndrome (SIRS) of non-infectious origin without acute organ dysfunction; I10 Essential (primary) hypertension; F17.210 Nicotine dependence, cigarettes, uncomplicated; G92 Toxic encephalopathy; E78.5 Hyperlipidemia, unspecified; F19.10 Other psychoactive substance abuse, uncomplicated; R00.0 Tachycardia, unspecified; R56.9 Unspecified convulsions; R33.9 Retention of urine, unspecified; E05.90 Thyrotoxicosis, unspecified without thyrotoxic crisis or storm; I34.0 Nonrheumatic mitral (valve) insufficiency; Z79.4 Long term (current) use of insulin; Z79.82 Long term (current) use of aspirin
CPT/HCPCS: 36415; 36416; 70450; 71045; 76770; 80048; 80053; 80306; 81003; 81015; 82550; 83605; 83690; 83735; 84145; 84439; 84443; 84484; 85025; 86140; 87040; 87086; 87635; 93005; 93306; 95712; 95819; 95957; 96372; 96374; 96375; 96376; C9254; G0103; G0378; J0360; J1650; J1815; J1885; J1953; J2060; J2543; J3480; J3490; U0003; U0005

== ENCOUNTER 2020-08-12 18:59 | Inpatient (IN) | payer SELFPAY ==
[2020-08-12] MEDS ORDERED: Midazolam HCl 2 mg/2 ml Vial ONE ×2 (19:23→19:30)
[2020-08-12 19:29] LABS: #Basophils 0.1 thou/uL (0.0-0.2); #Lymphocytes 1.8 thou/uL (1.20-3.40); #Monocytes 0.4 thou/uL (0.11-0.59); #Neutrophils 13.1 thou/uL (1.40-6.50); %Basophils 0.4 % (0.0-1.0); %Eosinophils 0.2 % (0.0-10.0); %Lymphocytes 11.4 % (21.0-51.0); %Monocytes 2.6 % (0.0-10.0); %Neutrophils 85.4 % (42.0-75.0); Mean Corpuscular HGB CONC 32.7 g/dL (32.0-36.0); Mean Corpuscular Hemoglobin 31.4 pg (27.0-31.0); Mean Corpuscular Volume 95.9 fL (78.0-98.0); Mean Platelet Volume 8.4 fL (7.4-10.4); Platelet Count 334 thou/uL (130-400); RBC Distribution Width 12.6 % (11.5-14.5); Red Blood Cell (RBC) Count 4.77 mill/uL (4.70-6.10); White Blood Cell (WBC) Count 15.4 thou/uL (4.8-10.8)
[2020-08-12 19:35] LABS: Bilirubin Negative (Negative); Blood, Urine Negative (Negative); Clarity Clear (Clear); Glucose, Urine (Dipstick) Greater than 1000 mg/dL (Negative); Ketone, Urine Negative (Negative); Leukocyte Negative Leu/uL (Negative); Nitrite Negative (Negative); Protein, Urine (Dipstick) 10 mg/dL (Neg-Trace); Specific Gravity, Urine 1.029 (1.002-1.036); Urobilinogen Normal mg/dL (Less than 2); pH, Urine 5.5 (5.0-9.0)
[2020-08-12 19:45] LABS: ALT (SGPT) 38 U/L (8-55); AST (SGOT) 46 U/L (5-34); Albumin 3.8 g/dL (3.5-5.0); Alkaline Phosphatase 106 U/L (40-110); Anion Gap 16 mmol/L (10-20); BUN (Urea Nitrogen) 18 mg/dL (8.4-25.7); Bilirubin, Total 0.4 mg/dL (0.2-1.2); Calc. Creatinine Clearance 0 mL/min (70-130); Calcium 9.6 mg/dL (7.8-10.44); Carbon Dioxide 26 mmol/L (22-29); Chloride 99 mmol/L (98-107); Glucose 193 mg/dL (70-105); Potassium 5.7 mmol/L (3.5-5.1); Protein, Total 7.8 g/dL (6.0-8.3); Sodium 135 mmol/L (136-145)
[2020-08-12 19:46] LABS: Medtox Reader # READER 4
[2020-08-12 19:46] LABS: Acetaminophen Less than 6.0 mcg/mL (10.0-30.0); Alcohol Less than 10 mg/dL (Less than 10); CK (CPK) 963 U/L (30-200); Salicylate Less than 8.0 mg/dL (15.0-30.0)
[2020-08-12 19:47] LABS: Amphetamine Not Detected (NotDetected); Barbiturates Screen Not Detected (NotDetected); Benzodiazepine Screen Not Detected (NotDetected); Cocaine Metabolite Screen Detected (NotDetected); Medtox Control Line Valid? VALID (VALID); Methadone Not Detected (NotDetected); Methamphetamine Not Detected (NotDetected); Opiate Screen Not Detected (NotDetected); Oxycodone Screen Not Detected (NotDetected); Phencyclidine (PCP) Not Detected (NotDetected); THC/Cannabinoid Screen Detected (NotDetected); Tricyclic Screen Not Detected (NotDetected)
[2020-08-12 19:56] LABS: Actual Bicarbonate (HCO3v) 27 mEq/L (22-28); Analyzer IN Cardio ER; Base Excess 1.3 mEq/L (-2.0 to +3.0); Calcium, Ionized (venous) 1.08 mmol/L (1.16-1.32); Chloride (VBG) 97 mmol/L (98-106); Hemoglobin (Hb) 15.6 g/dL (13.1-17.2); Potassium (VBG) 5.33 mmol/L (3.70-5.30); Sodium 134.3 mmol/L (133-146); pH (venous) 7.39 (7.32-7.43)
[2020-08-12] MEDS ORDERED: Lorazepam 2 MG/ML VIAL ONE (20:38)
[2020-08-12 22:20] LABS: Lactic Acid 1.4 mmol/L (0.5-2.2)
[2020-08-13] MEDS ORDERED: Ondansetron PF 4 MG/2 ML Vial ONE (01:09)
[2020-08-13] MEDS ORDERED: Haloperidol Lactate 5 MG/ML VIAL ONE (04:12)
[2020-08-13] MEDS ORDERED: Ondansetron ODT 4 MG TAB PO PRN (07:40)
[2020-08-13] MEDS ORDERED: Acetaminophen 325 MG TAB PO PRN (07:40)
[2020-08-13] MEDS ORDERED: Dextrose 50% Abboject 50 ML SYRINGE SLOW IVP PRN (07:54)
[2020-08-13] MEDS ORDERED: Dextrose 5% in Water 1,000 ML IV PRN (07:54)
[2020-08-13 08:05] LABS: #Basophils 0.1 thou/uL (0.0-0.2); #Eosinphils 0.1 thou/uL (0.0-0.7); #Monocytes 0.8 thou/uL (0.11-0.59); %Basophils 0.4 % (0.0-1.0); %Eosinophils 0.3 % (0.0-10.0); %Monocytes 4.6 % (0.0-10.0); %Neutrophils 82.6 % (42.0-75.0); Hemoglobin 13.7 g/dL (14.0-18.0); Mean Corpuscular Hemoglobin 29.7 pg (27.0-31.0); Mean Corpuscular Volume 95.7 fL (78.0-98.0); Mean Platelet Volume 8.3 fL (7.4-10.4); Platelet Count 341 thou/uL (130-400); RBC Distribution Width 12.8 % (11.5-14.5); Red Blood Cell (RBC) Count 4.61 mill/uL (4.70-6.10)
[2020-08-13 08:26] LABS: Lactic Acid 1.6 mmol/L (0.5-2.2)
[2020-08-13 08:31] LABS: ALT (SGPT) 33 U/L (8-55); AST (SGOT) 35 U/L (5-34); Albumin 3.5 g/dL (3.5-5.0); Alkaline Phosphatase 97 U/L (40-110); Anion Gap 14 mmol/L (10-20); BUN (Urea Nitrogen) 13 mg/dL (8.4-25.7); Bilirubin, Total 0.5 mg/dL (0.2-1.2); Calc. Creatinine Clearance 0 mL/min (70-130); Calcium 9.2 mg/dL (7.8-10.44); Carbon Dioxide 21 mmol/L (22-29); Chloride 106 mmol/L (98-107); Globulin 3.4 g/dL (2.4-3.5); Glucose 80 mg/dL (70-105); Potassium 4.1 mmol/L (3.5-5.1); Protein, Total 6.9 g/dL (6.0-8.3); Sodium 137 mmol/L (136-145)
[2020-08-13] MEDS ORDERED: Enoxaparin Sodium 40 MG/0.4 ML SYRINGE ONE (12:05)
[2020-08-13] MEDS: Enoxaparin Sodium 40 MG/0.4 ML SYRINGE SC SCH (12:08)
[2020-08-13 14:59] VITALS: BMI 21.7
[2020-08-13 16:38] LABS: SARS-CoV-2 PCR by NAA Not Detected (NotDetected)
[2020-08-13] MEDS: Lorazepam 2 MG/ML VIAL SLOW IVP PRN ×2 (17:16→21:13)
[2020-08-13] MEDS: Dextrose 5% in Water 1,000 ML IV SCH (17:47)
[2020-08-13] MEDS: Piperacillin/Tazobactam 4.5 GM in Sodium Chloride 0.9% 100 ML IVPB SCH (20:58)
[2020-08-13] MEDS: Ondansetron PF 4 MG/2 ML Vial IVP PRN (21:13)
[2020-08-13] MEDS ORDERED: Lorazepam 2 MG/ML VIAL SLOW IVP SCH (23:45)
[2020-08-13] MEDS ORDERED: Metoclopramide HCl 10 MG/2 ML VIAL IVP PRN (23:51)
[2020-08-14 00:43] LABS: #Basophils 0.1 thou/uL (0.0-0.2); #Eosinphils 0.2 thou/uL (0.0-0.7); #Lymphocytes 2.8 thou/uL (1.20-3.40); #Monocytes 1.5 thou/uL (0.11-0.59); #Neutrophils 15.4 thou/uL (1.40-6.50); %Basophils 0.3 % (0.0-1.0); %Eosinophils 0.9 % (0.0-10.0); %Lymphocytes 14.1 % (21.0-51.0); %Monocytes 7.4 % (0.0-10.0); %Neutrophils 77.4 % (42.0-75.0); Hemoglobin 13.6 g/dL (14.0-18.0); Mean Corpuscular HGB CONC 32.7 g/dL (32.0-36.0); Mean Corpuscular Volume 94.6 fL (78.0-98.0); Platelet Count 336 thou/uL (130-400); RBC Distribution Width 12.8 % (11.5-14.5); Red Blood Cell (RBC) Count 4.39 mill/uL (4.70-6.10); White Blood Cell (WBC) Count 19.8 thou/uL (4.8-10.8)
[2020-08-14] MEDS: Piperacillin/Tazobactam 4.5 GM in Sodium Chloride 0.9% 100 ML IVPB SCH ×4 (04:58→21:28)
[2020-08-14 06:10] LABS: #Basophils 0.1 thou/uL (0.0-0.2); #Eosinphils 0.2 thou/uL (0.0-0.7); #Lymphocytes 2.5 thou/uL (1.20-3.40); #Monocytes 1.5 thou/uL (0.11-0.59); #Neutrophils 15.2 thou/uL (1.40-6.50); %Basophils 0.4 % (0.0-1.0); %Eosinophils 1.3 % (0.0-10.0); %Lymphocytes 12.9 % (21.0-51.0); %Monocytes 7.5 % (0.0-10.0); %Neutrophils 77.9 % (42.0-75.0); Hemoglobin 13.3 g/dL (14.0-18.0); Mean Corpuscular Hemoglobin 30.2 pg (27.0-31.0); Mean Corpuscular Volume 94.4 fL (78.0-98.0); Mean Platelet Volume 8.5 fL (7.4-10.4); Platelet Count 309 thou/uL (130-400); RBC Distribution Width 12.7 % (11.5-14.5); Red Blood Cell (RBC) Count 4.42 mill/uL (4.70-6.10); White Blood Cell (WBC) Count 19.5 thou/uL (4.8-10.8)
[2020-08-14 06:33] LABS: Anion Gap 15 mmol/L (10-20); BUN (Urea Nitrogen) 14 mg/dL (8.4-25.7); Calc. Creatinine Clearance 83 mL/min (70-130); Calcium 9.1 mg/dL (7.8-10.44); Carbon Dioxide 25 mmol/L (22-29); Chloride 103 mmol/L (98-107); Glucose 136 mg/dL (70-105); Potassium 4.1 mmol/L (3.5-5.1); Sodium 139 mmol/L (136-145)
[2020-08-14] MEDS: Enoxaparin Sodium 40 MG/0.4 ML SYRINGE SC SCH (07:52)
[2020-08-14] MEDS: Dextrose 5% in Water 1,000 ML IV SCH (17:48)
[2020-08-14] MEDS: Dextrose 5 % And 0.9 % NaCl 1,000 ML IV SCH (17:49)
[2020-08-14] MEDS: Vancomycin 1.5 GRAM/300 ML BAG 1.5 GM in Premix Bag 1 BAG IVPB SCH (17:49)
[2020-08-14] MEDS: Lorazepam 2 MG/ML VIAL SLOW IVP PRN (21:24)
[2020-08-14] MEDS: Ondansetron PF 4 MG/2 ML Vial IVP PRN (21:24)
[2020-08-15] MEDS: Lorazepam 2 MG/ML VIAL SLOW IVP PRN (00:58)
[2020-08-15] MEDS: Dextrose 5 % And 0.9 % NaCl 1,000 ML IV SCH ×3 (00:59→13:56)
[2020-08-15] MEDS: Piperacillin/Tazobactam 4.5 GM in Sodium Chloride 0.9% 100 ML IVPB SCH ×3 (04:08→21:44)
[2020-08-15] MEDS: Vancomycin 1.5 GRAM/300 ML BAG 1.5 GM in Premix Bag 1 BAG IVPB SCH ×2 (05:01→17:40)
[2020-08-15 07:13] LABS: #Eosinphils 0.4 thou/uL (0.0-0.7); #Monocytes 1.1 thou/uL (0.11-0.59); #Neutrophils 10.4 thou/uL (1.40-6.50); %Basophils 0.3 % (0.0-1.0); %Eosinophils 2.9 % (0.0-10.0); %Lymphocytes 14.6 % (21.0-51.0); %Monocytes 7.9 % (0.0-10.0); %Neutrophils 74.4 % (42.0-75.0); Mean Corpuscular HGB CONC 31.1 g/dL (32.0-36.0); Mean Corpuscular Hemoglobin 29.7 pg (27.0-31.0); Mean Corpuscular Volume 95.4 fL (78.0-98.0); Mean Platelet Volume 8.5 fL (7.4-10.4); Platelet Count 307 thou/uL (130-400); RBC Distribution Width 12.6 % (11.5-14.5); Red Blood Cell (RBC) Count 4.37 mill/uL (4.70-6.10)
[2020-08-15 07:30] LABS: Anion Gap 14 mmol/L (10-20); BUN (Urea Nitrogen) 11 mg/dL (8.4-25.7); Calc. Creatinine Clearance 91 mL/min (70-130); Calcium 8.6 mg/dL (7.8-10.44); Carbon Dioxide 24 mmol/L (22-29); Chloride 105 mmol/L (98-107); Glucose 139 mg/dL (70-105); Potassium 4.1 mmol/L (3.5-5.1); Sodium 139 mmol/L (136-145)
[2020-08-15] MEDS: Enoxaparin Sodium 40 MG/0.4 ML SYRINGE SC SCH (08:06)
[2020-08-15] MEDS ORDERED: Carvedilol 25 MG TAB PO SCH (17:00)
[2020-08-15] MEDS: HumaLOG 300 UNITS/3 ML VIAL SC PRN (17:12)
[2020-08-15] MEDS: Lisinopril 20 MG TAB PO SCH (19:06)
[2020-08-15] MEDS: Atorvastatin Calcium 20 MG TAB PO SCH (19:06)
[2020-08-16] MEDS: Dextrose 5 % And 0.9 % NaCl 1,000 ML IV SCH ×3 (00:31→17:05)
[2020-08-16] MEDS: Piperacillin/Tazobactam 4.5 GM in Sodium Chloride 0.9% 100 ML IVPB SCH ×2 (00:31→16:40)
[2020-08-16] MEDS: Vancomycin 1.5 GRAM/300 ML BAG 1.5 GM in Premix Bag 1 BAG IVPB SCH (00:31)
[2020-08-16] MEDS: Aspirin Chewable 81 MG TAB PO SCH (08:33)
[2020-08-16] MEDS: Enoxaparin Sodium 40 MG/0.4 ML SYRINGE SC SCH (08:33)
[2020-08-16] MEDS: Lisinopril 20 MG TAB PO SCH ×2 (08:34→21:03)
[2020-08-16] MEDS: Tamsulosin HCl 0.4 MG CAP PO SCH (08:35)
[2020-08-16] MEDS: Multivitamin W/ Minerals 1 TAB PO SCH (08:35)
[2020-08-16] MEDS: Atorvastatin Calcium 20 MG TAB PO SCH (21:02)
[2020-08-16] MEDS ORDERED: Haloperidol Lactate 5 MG/ML VIAL IM SCH ×2 (21:30→21:50)
[2020-08-17] MEDS: Dextrose 5 % And 0.9 % NaCl 1,000 ML IV SCH ×3 (02:53→15:59)
[2020-08-17] MEDS: Enoxaparin Sodium 40 MG/0.4 ML SYRINGE SC SCH (09:23)
[2020-08-17] MEDS: Tamsulosin HCl 0.4 MG CAP PO SCH (09:23)
[2020-08-17] MEDS: Aspirin Chewable 81 MG TAB PO SCH (09:23)
[2020-08-17] MEDS: Lisinopril 20 MG TAB PO SCH ×2 (09:23→20:18)
[2020-08-17] MEDS: Multivitamin W/ Minerals 1 TAB PO SCH (09:23)
[2020-08-17 12:14] LABS: Free Thyroxine Index 2.25 (1.4-3.1); T4 7.9 ug/dL (4.87-11.72)
[2020-08-17] MEDS: Atorvastatin Calcium 20 MG TAB PO SCH (20:18)
[2020-08-18] MEDS: Dextrose 5 % And 0.9 % NaCl 1,000 ML IV SCH ×2 (00:48→08:32)
[2020-08-18] MEDS: HumaLOG 300 UNITS/3 ML VIAL SC PRN ×3 (05:34→17:14)
[2020-08-18] MEDS: Enoxaparin Sodium 40 MG/0.4 ML SYRINGE SC SCH (08:31)
[2020-08-18] MEDS: Lisinopril 20 MG TAB PO SCH (08:31)
[2020-08-18] MEDS: Aspirin Chewable 81 MG TAB PO SCH (08:31)
[2020-08-18] MEDS: Tamsulosin HCl 0.4 MG CAP PO SCH (08:31)
[2020-08-18] MEDS: Multivitamin W/ Minerals 1 TAB PO SCH (08:31)
[2020-08-18 11:26] LABS: Hemoglobin A1c 9.8 % (4.0-6.0)
[2020-08-18 17:41] VITALS: BP 144/79; TEMP 97.8
== END 2020-08-18 17:31 | disposition home or self-care (01) | DRG 917 ==
LOC: ERS 18:59 → ERHOLD 08-13 00:18 → OBSVTOIN 08-13 11:28 → T4-A 08-13 13:11
PROVIDERS: ADMIT Family Medicine; ATTEND Internal Medicine
DX: T40.7X1A Poisoning by cannabis (derivatives), accidental (unintentional), initial encounter (principal); G92 Toxic encephalopathy; I42.8 Other cardiomyopathies; Z20.822 Contact with and (suspected) exposure to COVID-19; I10 Essential (primary) hypertension; G40.909 Epilepsy, unspecified, not intractable, without status epilepticus; F12.10 Cannabis abuse, uncomplicated; E11.649 Type 2 diabetes mellitus with hypoglycemia without coma; E03.9 Hypothyroidism, unspecified; E87.5 Hyperkalemia; E78.5 Hyperlipidemia, unspecified; F17.210 Nicotine dependence, cigarettes, uncomplicated; D72.829 Elevated white blood cell count, unspecified; F14.10 Cocaine abuse, uncomplicated; Z78.1 Physical restraint status; Z79.899 Other long term (current) drug therapy; Z79.82 Long term (current) use of aspirin; Z79.84 Long term (current) use of oral hypoglycemic drugs; T40.5X1A Poisoning by cocaine, accidental (unintentional), initial encounter
CPT/HCPCS: 36415; 36416; 51701; 70450; 71045; 80048; 80053; 80306; 80307; 81003; 82140; 82533; 82550; 82805; 83036; 83605; 84436; 84443; 84479; 84484; 85025; 85652; 86140; 87040; 87635; 93005; 93306; 95712; 95819; 95957; 96374; 96375; G0378; J1630; J1650; J1815; J2060; J2250; J2405; J2543; J2765; J3370; J3490; U0003; U0005

== ENCOUNTER 2021-09-26 21:08 | Inpatient (IN) | payer SELFPAY ==
[2021-09-26 21:50] LABS: #Eosinphils 0.2 thou/uL (0.0-0.7); #Lymphocytes 2.8 thou/uL (1.20-3.40); #Monocytes 0.8 thou/uL (0.11-0.59); #Neutrophils 8.1 thou/uL (1.40-6.50); %Basophils 0.3 % (0.0-1.0); %Eosinophils 1.5 % (0.0-10.0); %Lymphocytes 23.1 % (21.0-51.0); %Neutrophils 68.1 % (42.0-75.0); Hemoglobin 13.9 g/dL (14.0-18.0); Mean Corpuscular HGB CONC 32.7 g/dL (32.0-36.0); Mean Platelet Volume 8.5 fL (7.4-10.4); Platelet Count 233 thou/uL (130-400); RBC Distribution Width 11.8 % (11.5-14.5); Red Blood Cell (RBC) Count 4.36 mill/uL (4.70-6.10); White Blood Cell (WBC) Count 11.9 thou/uL (4.8-10.8)
[2021-09-26] MEDS ORDERED: Cefepime 2 GM VIAL ONE (21:56)
[2021-09-26 22:05] LABS: ALT (SGPT) 13 U/L (8-55); AST (SGOT) 11 U/L (5-34); Albumin 3.3 g/dL (3.4-4.8); Alkaline Phosphatase 133 U/L (40-110); Anion Gap 13 mmol/L (10-20); BUN (Urea Nitrogen) 9 mg/dL (8.4-25.7); Bilirubin, Total 0.4 mg/dL (0.2-1.2); Calc. Creatinine Clearance 0 mL/min (70-130); Calcium 8.4 mg/dL (7.8-10.44); Carbon Dioxide 27 mmol/L (23-31); Chloride 94 mmol/L (98-107); Globulin 3.2 g/dL (2.4-3.5); Protein, Total 6.5 g/dL (5.8-8.1); Sodium 130 mmol/L (136-145)
[2021-09-26 22:29] LABS: Glucose 582 mg/dL (80-115)
[2021-09-26] MEDS ORDERED: Vancomycin 1 GM/200 ML BAG ONE (22:32)
[2021-09-26 22:40] LABS: SARS-CoV-2 NAA Rapid Test Not Detected (NotDetected)
[2021-09-26 22:42] LABS: Bacteria/HPF None Seen HPF (None Seen); Bilirubin Negative (Negative); Blood, Urine Negative (Negative); Clarity Clear (Clear); Glucose, Urine (Dipstick) Greater than 1000 mg/dL (Negative); Ketone, Urine Negative (Negative); Leukocyte 25 Leu/uL (Negative); Nitrite Negative (Negative); Protein, Urine (Dipstick) Negative (Neg-Trace); RBC/HPF 0-3 HPF (0-3); Specific Gravity, Urine 1.034 (1.002-1.036); Squamous Epithelial 0-3 HPF (0-3); Urobilinogen Normal mg/dL (Less than 2); pH, Urine 5.5 (5.0-9.0)
[2021-09-26] MEDS ORDERED: Vancomycin HCl 500 MG VIAL ONE ×2 (23:24→23:41)
[2021-09-27 01:04] LABS: Lactic Acid 1.7 mmol/L (0.5-2.2)
[2021-09-27] MEDS ORDERED: Senokot S 8.6-50 MG TAB PO PRN (01:18)
[2021-09-27] MEDS ORDERED: Dextrose 5% in Water 1,000 ML IV PRN (01:18)
[2021-09-27] MEDS ORDERED: Dextrose 50% Abboject 50 ML SYRINGE SLOW IVP PRN (01:18)
[2021-09-27] MEDS ORDERED: Zolpidem Tartrate 5 MG TAB PO PRN (01:18)
[2021-09-27] MEDS ORDERED: Vancomycin 1 GM in Premix Bag 1 BAG IVPB SCH (01:30)
[2021-09-27] MEDS ORDERED: Potassium Chloride 20 MEQ TAB PO SCH (02:00)
[2021-09-27] MEDS ORDERED: Insulin Glargine 30 UNITS/0.3 ML VIAL SC SCH (02:00)
[2021-09-27 02:06] LABS: Actual Bicarbonate (HCO3v) 27 mEq/L (22-28); Analyzer IN Cardio ER; Base Excess 1.8 mEq/L (-2.0 to +3.0); Calcium, Ionized (venous) 1.08 mmol/L (1.16-1.32); Chloride (VBG) 99 mmol/L (98-106); Hemoglobin (Hb) 14.4 g/dL (13.1-17.2); Potassium (VBG) 3.82 mmol/L (3.70-5.30); Sodium 130.7 mmol/L (133-146); pH (venous) 7.42 (7.32-7.43)
[2021-09-27 02:22] LABS: Hemoglobin A1c Greater than 14.0 % (4.0-6.0)
[2021-09-27 02:25] LABS: #Eosinphils 0.2 thou/uL (0.0-0.7); #Lymphocytes 1.6 thou/uL (1.20-3.40); #Monocytes 0.6 thou/uL (0.11-0.59); #Neutrophils 8.9 thou/uL (1.40-6.50); %Basophils 0.3 % (0.0-1.0); %Eosinophils 1.4 % (0.0-10.0); %Lymphocytes 14.3 % (21.0-51.0); %Monocytes 5.4 % (0.0-10.0); %Neutrophils 78.6 % (42.0-75.0); Hemoglobin 13.6 g/dL (14.0-18.0); Mean Corpuscular HGB CONC 33.4 g/dL (32.0-36.0); Mean Corpuscular Volume 95.8 fL (78.0-98.0); Mean Platelet Volume 8.1 fL (7.4-10.4); Platelet Count 228 thou/uL (130-400); RBC Distribution Width 11.7 % (11.5-14.5); Red Blood Cell (RBC) Count 4.24 mill/uL (4.70-6.10); White Blood Cell (WBC) Count 11.3 thou/uL (4.8-10.8)
[2021-09-27 02:38] LABS: ALT (SGPT) 10 U/L (8-55); AST (SGOT) 11 U/L (5-34); Albumin 3.1 g/dL (3.4-4.8); Alkaline Phosphatase 113 U/L (40-110); Anion Gap 14 mmol/L (10-20); BUN (Urea Nitrogen) 8 mg/dL (8.4-25.7); Bilirubin, Total 0.6 mg/dL (0.2-1.2); Calc. Creatinine Clearance 83 mL/min (70-130); Calcium 8.8 mg/dL (7.8-10.44); Carbon Dioxide 26 mmol/L (23-31); Chloride 98 mmol/L (98-107); Globulin 3.6 g/dL (2.4-3.5); Glucose 348 mg/dL (80-115); Magnesium 1.5 mg/dL (1.6-2.6); Potassium 3.9 mmol/L (3.5-5.1); Protein, Total 6.7 g/dL (5.8-8.1); Sodium 134 mmol/L (136-145)
[2021-09-27] MEDS: Nicotine 21 MG PATCH TD SCH (05:57)
[2021-09-27] MEDS ORDERED: Magnesium Sulfate 4 GM in Sodium Chloride 0.9% 250 ML 250 ML IVPB SCH (08:15)
[2021-09-27] MEDS: Lisinopril 20 MG TAB PO SCH ×2 (09:38→22:10)
[2021-09-27] MEDS: Famotidine 20 MG TAB PO SCH ×2 (09:38→22:16)
[2021-09-27] MEDS: Zinc Sulfate 220 MG CAP PO SCH (09:38)
[2021-09-27] MEDS: Tamsulosin HCl 0.4 MG CAP PO SCH (09:38)
[2021-09-27] MEDS: Cefepime 1 GM in Sodium Chloride 0.9% 100 ML IVPB SCH ×2 (09:38→22:17)
[2021-09-27] MEDS: Aspirin Chewable 81 MG TAB PO SCH ×2 (09:38→10:53)
[2021-09-27] MEDS: Carvedilol 25 MG TAB PO SCH ×2 (09:38→17:00)
[2021-09-27] MEDS: Insulin Glargine 30 UNITS/0.3 ML VIAL SC SCH ×2 (09:39→22:16)
[2021-09-27] MEDS: Enoxaparin Sodium 40 MG/0.4 ML SYRINGE SC SCH (10:53)
[2021-09-27] MEDS ORDERED: Magnesium Sulfate In Water 4 GM in Premix Bag 1 BAG IVPB SCH (11:00)
[2021-09-27] MEDS: Vancomycin 1 GM in Premix Bag 1 BAG IVPB SCH ×2 (12:43→23:56)
[2021-09-27 12:53] VITALS: BMI 20.6
[2021-09-27] MEDS: Acetaminophen 325 MG TAB PO PRN (15:32)
[2021-09-27] MEDS ORDERED: fentaNYL Citrate/PF 100 MCG/2 ML SYRINGE ONE (18:47)
[2021-09-27] MEDS ORDERED: Dextrose 50% Abboject 50 ML SYRINGE ONE (19:10)
[2021-09-27] MEDS ORDERED: Phenylephrine 10 MG/ML VIAL ONE (19:19)
[2021-09-27] MEDS ORDERED: Ondansetron PF 4 MG/2 ML Vial ONE (19:19)
[2021-09-27] MEDS ORDERED: Lidocaine 1% PF 5 ML VIAL ONE (19:19)
[2021-09-27] MEDS ORDERED: ePHEDrine 50 MG/ML VIAL ONE (19:19)
[2021-09-27] MEDS ORDERED: PROPOFOL 200 MG/20 ML VIAL ONE (19:19)
[2021-09-27] MEDS ORDERED: Dexamethasone 20 MG/5 ML VIAL ONE (19:19)
[2021-09-27] MEDS: Atorvastatin Calcium 20 MG TAB PO SCH (22:16)
[2021-09-28] MEDS: Nicotine 21 MG PATCH TD SCH (03:04)
[2021-09-28] MEDS: HumaLOG 300 UNITS/3 ML VIAL SC PRN ×3 (06:06→18:58)
[2021-09-28] MEDS: Morphine 2 MG/ML VIAL SLOW IVP PRN ×2 (10:13→16:16)
[2021-09-28] MEDS: Insulin Glargine 30 UNITS/0.3 ML VIAL SC SCH ×2 (10:14→21:21)
[2021-09-28] MEDS: Zinc Sulfate 220 MG CAP PO SCH (10:15)
[2021-09-28] MEDS: Aspirin Chewable 81 MG TAB PO SCH (10:15)
[2021-09-28] MEDS: Lisinopril 20 MG TAB PO SCH ×2 (10:15→21:20)
[2021-09-28] MEDS: Carvedilol 25 MG TAB PO SCH ×2 (10:15→17:00)
[2021-09-28] MEDS: Tamsulosin HCl 0.4 MG CAP PO SCH (10:15)
[2021-09-28] MEDS: Famotidine 20 MG TAB PO SCH ×2 (10:16→21:20)
[2021-09-28] MEDS: Enoxaparin Sodium 40 MG/0.4 ML SYRINGE SC SCH (10:16)
[2021-09-28] MEDS: Cefepime 1 GM in Sodium Chloride 0.9% 100 ML IVPB SCH ×2 (10:19→21:20)
[2021-09-28] MEDS: HYDROcodone/Acetaminophen 5/325 mg Tablet PO PRN ×2 (12:28→18:57)
[2021-09-28 12:52] LABS: Vancomycin, Trough 7.2 ug/mL
[2021-09-28] MEDS: Vancomycin 1 GM in Premix Bag 1 BAG IVPB SCH (13:18)
[2021-09-28] MEDS: Vancomycin 1.5 GRAM/300 ML BAG 1.5 GM in Premix Bag 1 BAG IVPB SCH (15:47)
[2021-09-28] MEDS: Atorvastatin Calcium 20 MG TAB PO SCH (21:20)
[2021-09-29] MEDS: Vancomycin 1.5 GRAM/300 ML BAG 1.5 GM in Premix Bag 1 BAG IVPB SCH (01:57)
[2021-09-29] MEDS: Nicotine 21 MG PATCH TD SCH (01:57)
[2021-09-29 06:07] LABS: Anion Gap 8 mmol/L (10-20); BUN (Urea Nitrogen) 10 mg/dL (8.4-25.7); Calc. Creatinine Clearance 110 mL/min (70-130); Calcium 8.1 mg/dL (7.8-10.44); Carbon Dioxide 29 mmol/L (23-31); Chloride 104 mmol/L (98-107); Glucose 118 mg/dL (80-115); Potassium 3.3 mmol/L (3.5-5.1); Sodium 138 mmol/L (136-145)
[2021-09-29 06:14] LABS: Eosinophils 3 % (0-10); Hemoglobin 12.1 g/dL (14.0-18.0); Lymphocytes 42 % (21-51); MDiff Complete? YES; Mean Corpuscular HGB CONC 32.3 g/dL (32.0-36.0); Mean Corpuscular Hemoglobin 31.3 pg (27.0-31.0); Mean Corpuscular Volume 96.7 fL (78.0-98.0); Monocytes 4 % (0-10); Neutrophil 50 % (42-75); Platelet Count 238 thou/uL (130-400); Platelet Morphology Comment Appears Adequate; RBC Distribution Width 11.7 % (11.5-14.5); RBC Morphology Normal; Red Blood Cell (RBC) Count 3.86 mill/uL (4.70-6.10)
[2021-09-29] MEDS: Carvedilol 25 MG TAB PO SCH ×2 (09:57→17:13)
[2021-09-29] MEDS: Cefepime 1 GM in Sodium Chloride 0.9% 100 ML IVPB SCH (09:57)
[2021-09-29] MEDS: Zinc Sulfate 220 MG CAP PO SCH (09:57)
[2021-09-29] MEDS: Famotidine 20 MG TAB PO SCH ×2 (09:58→21:54)
[2021-09-29] MEDS: Aspirin Chewable 81 MG TAB PO SCH (09:58)
[2021-09-29] MEDS: Lisinopril 20 MG TAB PO SCH ×2 (09:58→21:54)
[2021-09-29] MEDS: Tamsulosin HCl 0.4 MG CAP PO SCH (09:58)
[2021-09-29] MEDS: Enoxaparin Sodium 40 MG/0.4 ML SYRINGE SC SCH (10:04)
[2021-09-29] MEDS: Insulin Glargine 30 UNITS/0.3 ML VIAL SC SCH ×2 (10:17→21:58)
[2021-09-29] MEDS ORDERED: Potassium Chloride 20 MEQ TAB PO SCH (11:15)
[2021-09-29 13:11] LABS: Vancomycin, Trough 11.6 ug/mL
[2021-09-29] MEDS: VANCOMYCIN 1.75 GM/500 ML BAG 1.75 GM in Premix Bag 1 BAG IVPB SCH (13:54)
[2021-09-29] MEDS: HYDROcodone/Acetaminophen 5/325 mg Tablet PO PRN (17:17)
[2021-09-29] MEDS: Atorvastatin Calcium 20 MG TAB PO SCH (21:54)
[2021-09-29] MEDS: Cefepime 2 GM in Sodium Chloride 0.9% 100 ML IVPB SCH (21:55)
[2021-09-29] MEDS: HumaLOG 300 UNITS/3 ML VIAL SC PRN (22:00)
[2021-09-30] MEDS: VANCOMYCIN 1.75 GM/500 ML BAG 1.75 GM in Premix Bag 1 BAG IVPB SCH ×2 (02:19→16:33)
[2021-09-30] MEDS: Nicotine 21 MG PATCH TD SCH (02:43)
[2021-09-30] MEDS: HumaLOG 300 UNITS/3 ML VIAL SC PRN ×3 (06:14→21:32)
[2021-09-30 06:17] LABS: #Basophils 0.1 thou/uL (0.0-0.2); #Eosinphils 0.3 thou/uL (0.0-0.7); #Lymphocytes 3.2 thou/uL (1.20-3.40); #Monocytes 0.6 thou/uL (0.11-0.59); #Neutrophils 4.9 thou/uL (1.40-6.50); %Basophils 0.6 % (0.0-1.0); %Eosinophils 3.4 % (0.0-10.0); %Lymphocytes 35.2 % (21.0-51.0); %Monocytes 6.7 % (0.0-10.0); %Neutrophils 54.2 % (42.0-75.0); Hemoglobin 11.8 g/dL (14.0-18.0); Mean Corpuscular HGB CONC 32.4 g/dL (32.0-36.0); Mean Corpuscular Hemoglobin 31.3 pg (27.0-31.0); Mean Corpuscular Volume 96.5 fL (78.0-98.0); Platelet Count 235 thou/uL (130-400); RBC Distribution Width 11.8 % (11.5-14.5); Red Blood Cell (RBC) Count 3.77 mill/uL (4.70-6.10)
[2021-09-30 06:33] LABS: Anion Gap 10 mmol/L (10-20); BUN (Urea Nitrogen) 9 mg/dL (8.4-25.7); Calc. Creatinine Clearance 103 mL/min (70-130); Calcium 8.3 mg/dL (7.8-10.44); Carbon Dioxide 25 mmol/L (23-31); Chloride 107 mmol/L (98-107); Glucose 261 mg/dL (80-115); Potassium 3.9 mmol/L (3.5-5.1); Sodium 138 mmol/L (136-145)
[2021-09-30] MEDS: Lisinopril 20 MG TAB PO SCH ×2 (09:23→21:26)
[2021-09-30] MEDS: Carvedilol 25 MG TAB PO SCH ×2 (09:23→16:36)
[2021-09-30] MEDS: Aspirin Chewable 81 MG TAB PO SCH (09:24)
[2021-09-30] MEDS: Famotidine 20 MG TAB PO SCH ×2 (09:24→21:26)
[2021-09-30] MEDS: Acetaminophen 325 MG TAB PO PRN (09:24)
[2021-09-30] MEDS: Zinc Sulfate 220 MG CAP PO SCH (09:25)
[2021-09-30] MEDS: Tamsulosin HCl 0.4 MG CAP PO SCH (09:25)
[2021-09-30] MEDS: Enoxaparin Sodium 40 MG/0.4 ML SYRINGE SC SCH (09:27)
[2021-09-30] MEDS: Cefepime 2 GM in Sodium Chloride 0.9% 100 ML IVPB SCH ×2 (09:27→21:31)
[2021-09-30] MEDS: Insulin Glargine 30 UNITS/0.3 ML VIAL SC SCH ×2 (09:28→21:30)
[2021-09-30] MEDS: Morphine 2 MG/ML VIAL SLOW IVP PRN (11:42)
[2021-09-30] MEDS: hydrALAZINE 20 MG/ML VIAL SLOW IVP PRN (12:55)
[2021-09-30 13:32] LABS: Vancomycin, Trough 13.9 ug/mL
[2021-09-30] MEDS: Atorvastatin Calcium 20 MG TAB PO SCH (21:26)
[2021-10-01] MEDS: VANCOMYCIN 1.75 GM/500 ML BAG 1.75 GM in Premix Bag 1 BAG IVPB SCH ×2 (02:42→14:57)
[2021-10-01] MEDS: Nicotine 21 MG PATCH TD SCH (02:43)
[2021-10-01] MEDS: Famotidine 20 MG TAB PO SCH ×2 (09:17→21:39)
[2021-10-01] MEDS: Aspirin Chewable 81 MG TAB PO SCH (09:17)
[2021-10-01] MEDS: Tamsulosin HCl 0.4 MG CAP PO SCH (09:17)
[2021-10-01] MEDS: Zinc Sulfate 220 MG CAP PO SCH (09:17)
[2021-10-01] MEDS: Lisinopril 20 MG TAB PO SCH ×2 (09:17→21:39)
[2021-10-01] MEDS: Carvedilol 25 MG TAB PO SCH ×2 (09:17→17:19)
[2021-10-01] MEDS: Enoxaparin Sodium 40 MG/0.4 ML SYRINGE SC SCH (09:18)
[2021-10-01] MEDS: Cefepime 2 GM in Sodium Chloride 0.9% 100 ML IVPB SCH ×2 (09:18→21:40)
[2021-10-01] MEDS ORDERED: Insulin Glargine 30 UNITS/0.3 ML VIAL SC SCH (10:45)
[2021-10-01] MEDS: Atorvastatin Calcium 20 MG TAB PO SCH (21:39)
[2021-10-01] MEDS: Insulin Glargine 30 UNITS/0.3 ML VIAL SC SCH (21:39)
[2021-10-02] MEDS: Nicotine 21 MG PATCH TD SCH (02:39)
[2021-10-02] MEDS: VANCOMYCIN 1.75 GM/500 ML BAG 1.75 GM in Premix Bag 1 BAG IVPB SCH (02:40)
[2021-10-02] MEDS: Amoxicillin/Potassium Clav 875 MG TAB PO SCH ×2 (08:52→22:10)
[2021-10-02] MEDS: Famotidine 20 MG TAB PO SCH ×2 (08:52→22:10)
[2021-10-02] MEDS: Aspirin Chewable 81 MG TAB PO SCH (08:53)
[2021-10-02] MEDS: Carvedilol 25 MG TAB PO SCH ×2 (08:53→17:44)
[2021-10-02] MEDS: Lisinopril 20 MG TAB PO SCH ×2 (08:53→22:10)
[2021-10-02] MEDS: Insulin Glargine 30 UNITS/0.3 ML VIAL SC SCH ×2 (08:53→22:10)
[2021-10-02] MEDS: Enoxaparin Sodium 40 MG/0.4 ML SYRINGE SC SCH (08:53)
[2021-10-02] MEDS: Tamsulosin HCl 0.4 MG CAP PO SCH (08:53)
[2021-10-02] MEDS: Zinc Sulfate 220 MG CAP PO SCH (08:53)
[2021-10-02] MEDS: Morphine 2 MG/ML VIAL SLOW IVP PRN (11:09)
[2021-10-02] MEDS: hydrALAZINE 20 MG/ML VIAL SLOW IVP PRN (12:27)
[2021-10-02] MEDS: HumaLOG 300 UNITS/3 ML VIAL SC PRN (17:44)
[2021-10-02] MEDS: Atorvastatin Calcium 20 MG TAB PO SCH (22:10)
[2021-10-03] MEDS: Nicotine 21 MG PATCH TD SCH (03:50)
[2021-10-03] MEDS: HumaLOG 300 UNITS/3 ML VIAL SC PRN (06:15)
[2021-10-03] MEDS: Carvedilol 25 MG TAB PO SCH (09:52)
[2021-10-03] MEDS: Amoxicillin/Potassium Clav 875 MG TAB PO SCH (09:52)
[2021-10-03] MEDS: Lisinopril 20 MG TAB PO SCH (09:52)
[2021-10-03] MEDS: Aspirin Chewable 81 MG TAB PO SCH (09:52)
[2021-10-03] MEDS: Tamsulosin HCl 0.4 MG CAP PO SCH (09:52)
[2021-10-03] MEDS: Zinc Sulfate 220 MG CAP PO SCH (09:53)
[2021-10-03] MEDS: Enoxaparin Sodium 40 MG/0.4 ML SYRINGE SC SCH (09:53)
[2021-10-03] MEDS: Famotidine 20 MG TAB PO SCH (09:53)
[2021-10-03] MEDS: Insulin Glargine 30 UNITS/0.3 ML VIAL SC SCH (09:53)
[2021-10-03 12:34] VITALS: BP 159/89; TEMP 97.5
[2021-10-03] MEDS: HYDROcodone/Acetaminophen 5/325 mg Tablet PO PRN (12:42)
== END 2021-10-03 13:21 | disposition home or self-care (01) | DRG 854 ==
LOC: ERS 21:08 → SURG B 23:30 → ERHOLD 23:52 → SURG B 09-27 07:02
PROVIDERS: ADMIT Student in an Organized Health Care Education/Training Program; ATTEND Internal Medicine
PROC: 0Y6Q0Z1 Detachment at Left 1st Toe, High, Open Approach (ICD-10-PCS; principal; 2021-09-27)
PROC: 0Y6S0Z1 Detachment at Left 2nd Toe, High, Open Approach (ICD-10-PCS; 2021-09-27)
DX: A41.9 Sepsis, unspecified organism (principal); M86.8X7 Other osteomyelitis, ankle and foot; M84.477A Pathological fracture, right toe(s), initial encounter for fracture; N17.9 Acute kidney failure, unspecified; E11.52 Type 2 diabetes mellitus with diabetic peripheral angiopathy with gangrene; N30.00 Acute cystitis without hematuria; E11.69 Type 2 diabetes mellitus with other specified complication; Z20.822 Contact with and (suspected) exposure to COVID-19; E11.621 Type 2 diabetes mellitus with foot ulcer; L97.519 Non-pressure chronic ulcer of other part of right foot with unspecified severity; I10 Essential (primary) hypertension; E11.65 Type 2 diabetes mellitus with hyperglycemia; F19.10 Other psychoactive substance abuse, uncomplicated; B95.4 Other streptococcus as the cause of diseases classified elsewhere; E11.649 Type 2 diabetes mellitus with hypoglycemia without coma; G40.909 Epilepsy, unspecified, not intractable, without status epilepticus; E87.6 Hypokalemia; N40.0 Benign prostatic hyperplasia without lower urinary tract symptoms; E78.5 Hyperlipidemia, unspecified; Z87.891 Personal history of nicotine dependence; Z79.899 Other long term (current) drug therapy; Z79.82 Long term (current) use of aspirin; Z79.4 Long term (current) use of insulin; Z83.3 Family history of diabetes mellitus
CPT/HCPCS: 36415; 36416; 80048; 80053; 80202; 81003; 81015; 82010; 82805; 83036; 83605; 83735; 84484; 85025; 85652; 86140; 87040; 87070; 87076; 87077; 87086; 87205; 88305; 88311; 93005; 93923; 96365; 96366; 96367; 97139; J0360; J0692; J1100; J1650; J1815; J2270; J2370; J2405; J2704; J3370; J3475; J3490; J7070; J7999; U0002

== ENCOUNTER 2021-10-24 21:23 | Observation (INO) | payer SELFPAY ==
[2021-10-24 22:36] LABS: ALT (SGPT) 10 U/L (8-55); AST (SGOT) 9 U/L (5-34); Albumin 3.2 g/dL (3.4-4.8); Alkaline Phosphatase 134 U/L (40-110); Anion Gap 13 mmol/L (10-20); BUN (Urea Nitrogen) 5 mg/dL (8.4-25.7); Bilirubin, Total 0.3 mg/dL (0.2-1.2); CK (CPK) 128 U/L (30-200); Calc. Creatinine Clearance 0 mL/min (70-130); Calcium 8.3 mg/dL (7.8-10.44); Carbon Dioxide 27 mmol/L (23-31); Chloride 99 mmol/L (98-107); Estimated GFR 61; Globulin 2.6 g/dL (2.4-3.5); Potassium 3.9 mmol/L (3.5-5.1); Protein, Total 5.8 g/dL (5.8-8.1); Sodium 135 mmol/L (136-145)
[2021-10-24 22:38] LABS: Glucose 651 mg/dL (80-115)
[2021-10-24 22:45] LABS: Hemoglobin 12.6 g/dL (14.0-18.0); Mean Corpuscular HGB CONC 33.2 g/dL (32.0-36.0); Mean Corpuscular Volume 96.6 fL (78.0-98.0); Mean Platelet Volume 9.3 fL (7.4-10.4); Platelet Count 157 thou/uL (130-400); Red Blood Cell (RBC) Count 3.93 mill/uL (4.70-6.10); White Blood Cell (WBC) Count 7.6 thou/uL (4.8-10.8)
[2021-10-24 23:11] LABS: #Basophils 0.1 thou/uL (0.0-0.2); #Eosinphils 0.3 thou/uL (0.0-0.7); #Lymphocytes 2.5 thou/uL (1.20-3.40); #Monocytes 0.5 thou/uL (0.11-0.59); #Neutrophils 4.3 thou/uL (1.40-6.50); %Eosinophils 3.8 % (0.0-10.0); %Lymphocytes 32.5 % (21.0-51.0); %Monocytes 6.4 % (0.0-10.0); %Neutrophils 56.3 % (42.0-75.0); RBC Morphology Normal
[2021-10-24] MEDS ORDERED: Insulin Regular 300 UNITS/3 ML VIAL ONE (23:18)
[2021-10-25] MEDS ORDERED: Acetaminophen 325 MG TAB PO PRN (00:25)
[2021-10-25] MEDS ORDERED: HumaLOG 300 UNITS/3 ML VIAL SC PRN ×2 (00:25)
[2021-10-25] MEDS ORDERED: Dextrose 5% in Water 1,000 ML IV PRN (00:25)
[2021-10-25] MEDS ORDERED: Dextrose 50% Abboject 50 ML SYRINGE SLOW IVP PRN (00:25)
[2021-10-25] MEDS ORDERED: Acetaminophen 650 MG Suppository PR PRN (00:25)
[2021-10-25] MEDS ORDERED: Nitroglycerin 0.4 MG TAB (25 Tab Bottle) SL PRN (00:25)
[2021-10-25] MEDS ORDERED: Ondansetron PF 4 MG/2 ML Vial IVP PRN (00:25)
[2021-10-25] MEDS ORDERED: Ondansetron ODT 4 MG TAB PO PRN (00:25)
[2021-10-25 00:30] LABS: Actual Bicarbonate (HCO3v) 28 mEq/L (22-28); Base Excess 0.2 mEq/L (-2.0 to +3.0); Chloride (VBG) 98 mmol/L (98-106); Hemoglobin (Hb) 13.6 g/dL (13.1-17.2); Potassium (VBG) 3.64 mmol/L (3.70-5.30); pH (venous) 7.29 (7.32-7.43)
[2021-10-25] MEDS ORDERED: Aspirin Chewable 81 MG TAB PO SCH ×2 (00:45→09:00)
[2021-10-25 06:45] LABS: Troponin I Less than 0.010 ng/mL (< 0.028)
[2021-10-25 06:45] LABS: Troponin I Less than 0.010 ng/mL (< 0.028)
[2021-10-25 06:48] LABS: #Basophils 0.1 thou/uL (0.0-0.2); #Eosinphils 0.3 thou/uL (0.0-0.7); #Lymphocytes 3.5 thou/uL (1.20-3.40); #Monocytes 0.6 thou/uL (0.11-0.59); #Neutrophils 4.8 thou/uL (1.40-6.50); %Basophils 0.8 % (0.0-1.0); %Eosinophils 3.6 % (0.0-10.0); %Lymphocytes 37.5 % (21.0-51.0); %Monocytes 6.7 % (0.0-10.0); %Neutrophils 51.5 % (42.0-75.0); Hemoglobin 12.4 g/dL (14.0-18.0); Mean Corpuscular HGB CONC 32.3 g/dL (32.0-36.0); Mean Corpuscular Volume 96.2 fL (78.0-98.0); Mean Platelet Volume 9.3 fL (7.4-10.4); Platelet Count 169 thou/uL (130-400); Red Blood Cell (RBC) Count 3.99 mill/uL (4.70-6.10); White Blood Cell (WBC) Count 9.4 thou/uL (4.8-10.8)
[2021-10-25 06:51] LABS: Carbon Dioxide 21 mmol/L (23-31); Chloride 107 mmol/L (98-107); Sodium 139 mmol/L (136-145)
[2021-10-25 06:52] LABS: Anion Gap 15 mmol/L (10-20); BUN (Urea Nitrogen) 6 mg/dL (8.4-25.7); Calc. Creatinine Clearance 0 mL/min (70-130); Calcium 8.1 mg/dL (7.8-10.44); Estimated GFR 100; Glucose 171 mg/dL (80-115)
[2021-10-25 07:07] VITALS: BP 142/91; TEMP 98.9
[2021-10-25] MEDS ORDERED: ADENOSINE 60 MG/20 ML VIAL ONE (08:58)
[2021-10-25] MEDS ORDERED: Enoxaparin Sodium 40 MG/0.4 ML SYRINGE SC SCH (09:00)
== END 2021-10-25 14:10 | disposition left against medical advice (07) ==
LOC: ERS 21:23 → ERHOLD 23:58
PROVIDERS: ADMIT Student in an Organized Health Care Education/Training Program; ATTEND Student in an Organized Health Care Education/Training Program
DX: R07.89 Other chest pain (principal); E11.65 Type 2 diabetes mellitus with hyperglycemia; I10 Essential (primary) hypertension; Z53.29 Procedure and treatment not carried out because of patient's decision for other reasons; Z86.73 Personal history of transient ischemic attack (TIA), and cerebral infarction without residual deficits; Z87.891 Personal history of nicotine dependence; Z79.4 Long term (current) use of insulin; Z79.82 Long term (current) use of aspirin; Z79.899 Other long term (current) drug therapy; Z89.412 Acquired absence of left great toe; Z20.822 Contact with and (suspected) exposure to COVID-19
CPT/HCPCS: 36415; 36416; 71045; 78452; 80048; 80053; 82010; 82550; 82805; 83880; 84484; 85025; 85379; 93005; 93017; A9500; G0378; J0153; J1815; U0003; U0005

== ENCOUNTER 2021-12-04 03:29 | Emergency (ER) | payer SELFPAY ==
[2021-12-04] MEDS ORDERED: diphenhydrAMINE 50 MG CAP ONE (04:12)
== END 2021-12-04 04:42 | disposition home or self-care (01) ==
LOC: ERS 03:29
DX: L29.9 Pruritus, unspecified (principal); F17.210 Nicotine dependence, cigarettes, uncomplicated
CPT/HCPCS: 99283

== ENCOUNTER 2022-01-24 17:53 | Emergency (ER) | payer SELFPAY | END 2022-01-24 19:10 | disposition home or self-care (01) | LOC: ERS 17:53 | DX: S91.154A Open bite of right lesser toe(s) without damage to nail, initial encounter (principal); I10 Essential (primary) hypertension; E11.9 Type 2 diabetes mellitus without complications; F17.210 Nicotine dependence, cigarettes, uncomplicated; Z86.73 Personal history of transient ischemic attack (TIA), and cerebral infarction without residual deficits; W53.11XA Bitten by rat, initial encounter | CPT/HCPCS: 99283 ==

== ENCOUNTER 2022-03-25 15:04 | Inpatient (IN) | payer SELFPAY ==
[2022-03-25 16:08] LABS: #Eosinphils 0.1 thou/uL (0.0-0.7); #Lymphocytes 1.9 thou/uL (1.20-3.40); #Monocytes 0.7 thou/uL (0.11-0.59); #Neutrophils 11.7 thou/uL (1.40-6.50); %Basophils 0.3 % (0.0-1.0); %Eosinophils 0.6 % (0.0-10.0); %Lymphocytes 13.2 % (21.0-51.0); %Monocytes 4.7 % (0.0-10.0); %Neutrophils 81.3 % (42.0-75.0); Hemoglobin 6.9 g/dL (14.0-18.0); Mean Corpuscular HGB CONC 31.5 g/dL (32.0-36.0); Mean Corpuscular Hemoglobin 30.3 pg (27.0-31.0); Mean Platelet Volume 7.8 fL (7.4-10.4); Platelet Count 419 10x3/uL (130-400); RBC Distribution Width 14.7 % (11.5-14.5); Red Blood Cell (RBC) Count 2.29 mill/uL (4.70-6.10); White Blood Cell (WBC) Count 14.3 10x3/uL (4.8-10.8)
[2022-03-25 16:12] LABS: Actual Bicarbonate (HCO3v) 22 mEq/L (22-28); Analyzer IN Cardio ER; Base Excess 2.2 mEq/L (-2.0 to +3.0); Calcium, Ionized (venous) 0.87 mmol/L (1.16-1.32); Chloride (VBG) 106 mmol/L (98-106); Hemoglobin (Hb) 6.2 g/dL (13.1-17.2); Potassium (VBG) 3.83 mmol/L (3.70-5.30); Sodium 130.7 mmol/L (133-146); pH (venous) 7.74 (7.32-7.43)
[2022-03-25 16:19] LABS: INR-International Normal Ratio 1.6; Prothrombin Time 19.7 sec (12.0-14.7)
[2022-03-25 16:29] LABS: Acetaminophen Less than 10.0 mcg/mL (10.0-30.0); Alcohol Less than 10 mg/dL (Less than 10); CK (CPK) 72 U/L (30-200); Lipase 37 U/L (8-78); Salicylate Less than 8.0 mg/dL (15.0-30.0)
[2022-03-25 16:30] LABS: ALT (SGPT) 17 U/L (8-55); AST (SGOT) 20 U/L (5-34); Albumin 1.6 g/dL (3.4-4.8); Alkaline Phosphatase 119 U/L (40-110); Anion Gap 13 mmol/L (10-20); BUN (Urea Nitrogen) 8 mg/dL (8.4-25.7); Bilirubin, Total 0.2 mg/dL (0.2-1.2); Calc. Creatinine Clearance 0 mL/min (70-130); Calcium 7.2 mg/dL (7.8-10.44); Carbon Dioxide 19 mmol/L (23-31); Chloride 106 mmol/L (98-107); Estimated GFR 108; Glucose 308 mg/dL (80-115); Magnesium 1.4 mg/dL (1.6-2.6); Potassium 4.1 mmol/L (3.5-5.1); Protein, Total 5.6 g/dL (5.8-8.1); Sodium 134 mmol/L (136-145)
[2022-03-25] MEDS ORDERED: Acetaminophen 325 MG TAB PO PRN (19:16)
[2022-03-25] MEDS ORDERED: Ondansetron ODT 4 MG TAB PO PRN (19:16)
[2022-03-25] MEDS ORDERED: Dextrose 50% Abboject 50 ML SYRINGE SLOW IVP PRN (19:16)
[2022-03-25] MEDS ORDERED: Dextrose 5% in Water 1,000 ML IV PRN (19:16)
[2022-03-25] MEDS ORDERED: Ondansetron PF 4 MG/2 ML Vial IVP PRN (19:16)
[2022-03-25] MEDS ORDERED: Sodium Chloride 0.9% 1,000 ML IV SCH (19:30)
[2022-03-25] MEDS ORDERED: Cefepime 2 GM VIAL ONE (19:43)
[2022-03-25] MEDS ORDERED: cefTRIAXone\\ROCEPHIN 2 GM VIAL ONE (19:44)
[2022-03-25] MEDS ORDERED: Magnesium 2 GM/50 ML(in water) 2 GM in Premix Bag 1 BAG IVPB SCH (19:45)
[2022-03-25] MEDS ORDERED: Electrolyte Replacement Protocol 1 EACH FS PRN (19:45)
[2022-03-25] MEDS ORDERED: cefTRIAXone\\ROCEPHIN 2 GM in Sodium Chloride 0.9% 100 ML IVPB SCH (21:00)
[2022-03-25 21:37] VITALS: BMI 19.1
[2022-03-25 22:26] LABS: Hemoglobin 6.3 g/dL (14.0-18.0)
[2022-03-25] MEDS: Enoxaparin Sodium 80 MG/0.8 ML SYRINGE SC SCH (23:47)
[2022-03-26 05:40] LABS: #Eosinphils 0.1 thou/uL (0.0-0.7); #Lymphocytes 2.2 thou/uL (1.20-3.40); #Monocytes 0.6 thou/uL (0.11-0.59); #Neutrophils 9.7 thou/uL (1.40-6.50); %Basophils 0.1 % (0.0-1.0); %Eosinophils 0.7 % (0.0-10.0); %Lymphocytes 17.5 % (21.0-51.0); %Monocytes 4.8 % (0.0-10.0); Hemoglobin 8.3 g/dL (14.0-18.0); Mean Corpuscular HGB CONC 31.4 g/dL (32.0-36.0); Mean Corpuscular Volume 92.5 fl (78.0-98.0); Mean Platelet Volume 7.7 fL (7.4-10.4); Platelet Count 407 10x3/uL (130-400); RBC Distribution Width 14.4 % (11.5-14.5); Red Blood Cell (RBC) Count 2.86 mill/uL (4.70-6.10); White Blood Cell (WBC) Count 12.5 10x3/uL (4.8-10.8)
[2022-03-26] MEDS: HumaLOG 300 UNITS/3 ML VIAL SC PRN ×4 (05:45→20:13)
[2022-03-26 05:55] LABS: Anion Gap 9 mmol/L (10-20); BUN (Urea Nitrogen) 8 mg/dL (8.4-25.7); Calc. Creatinine Clearance 137 mL/min (70-130); Calcium 7.4 mg/dL (7.8-10.44); Carbon Dioxide 24 mmol/L (23-31); Chloride 105 mmol/L (98-107); Estimated GFR 113; Glucose 210 mg/dL (80-115); Potassium 3.9 mmol/L (3.5-5.1); Sodium 134 mmol/L (136-145)
[2022-03-26 06:49] LABS: Magnesium 1.8 mg/dL (1.6-2.6)
[2022-03-26] MEDS ORDERED: Magnesium 2 GM/50 ML(in water) 2 GM in Premix Bag 1 BAG IVPB SCH (08:00)
[2022-03-26] MEDS: Carvedilol 25 MG TAB PO SCH ×2 (08:48→16:21)
[2022-03-26] MEDS: Enoxaparin Sodium 80 MG/0.8 ML SYRINGE SC SCH ×2 (08:48→20:11)
[2022-03-26] MEDS: Insulin Glargine 30 UNITS/0.3 ML VIAL SC SCH (08:49)
[2022-03-26] MEDS ORDERED: FLU VACC QS2022-23(6MOS UP)/PF 60 MCG/0.5 ML SYRINGE IM ONE (09:00)
[2022-03-26] MEDS ORDERED: Iopamidol-370 76% 500 ML 1 ML ONE (15:37)
[2022-03-26] MEDS ORDERED: Magnevist 469MG/ML 20 ML VIAL ONE (15:46)
[2022-03-26] MEDS: Atorvastatin Calcium 40 MG TAB PO SCH (20:11)
[2022-03-26] MEDS ORDERED: Nitroglycerin 0.4 MG TAB (25 Tab Bottle) ONE (21:08)
[2022-03-26] MEDS: Nitroglycerin 0.4 MG TAB (25 Tab Bottle) SL PRN ×3 (21:10→21:20)
[2022-03-27 06:05] LABS: #Eosinphils 0.1 thou/uL (0.0-0.7); #Lymphocytes 1.8 thou/uL (1.20-3.40); #Monocytes 0.6 thou/uL (0.11-0.59); #Neutrophils 8.7 thou/uL (1.40-6.50); %Basophils 0.3 % (0.0-1.0); %Eosinophils 0.7 % (0.0-10.0); %Lymphocytes 16.5 % (21.0-51.0); %Monocytes 4.9 % (0.0-10.0); %Neutrophils 77.6 % (42.0-75.0); Hemoglobin 7.3 g/dL (14.0-18.0); Mean Corpuscular HGB CONC 31.8 g/dL (32.0-36.0); Mean Corpuscular Hemoglobin 29.1 pg (27.0-31.0); Mean Corpuscular Volume 91.5 fl (78.0-98.0); Mean Platelet Volume 7.4 fL (7.4-10.4); Platelet Count 383 10x3/uL (130-400); RBC Distribution Width 14.8 % (11.5-14.5); Red Blood Cell (RBC) Count 2.51 mill/uL (4.70-6.10); White Blood Cell (WBC) Count 11.2 10x3/uL (4.8-10.8)
[2022-03-27 06:21] LABS: Anion Gap 8 mmol/L (10-20); BUN (Urea Nitrogen) 8 mg/dL (8.4-25.7); Calc. Creatinine Clearance 142 mL/min (70-130); Calcium 7.3 mg/dL (7.8-10.44); Carbon Dioxide 26 mmol/L (23-31); Chloride 105 mmol/L (98-107); Cholesterol 87 mg/dl (< 200 Desired); Estimated GFR 115; Glucose 126 mg/dL (80-115); HDL Cholesterol 22 mg/dL (>60 Neg Risk); LDL Cholesterol, Calculated 56 mg/dL; Magnesium 1.6 mg/dL (1.6-2.6); Potassium 3.6 mmol/L (3.5-5.1); Sodium 135 mmol/L (136-145); Triglycerides 47 mg/dL (Less than 150)
[2022-03-27] MEDS ORDERED: Magnesium 2 GM/50 ML(in water) 2 GM in Premix Bag 1 BAG IVPB SCH (09:00)
[2022-03-27] MEDS: Insulin Glargine 30 UNITS/0.3 ML VIAL SC SCH (09:02)
[2022-03-27] MEDS: Carvedilol 25 MG TAB PO SCH ×2 (09:03→17:49)
[2022-03-27] MEDS: Enoxaparin Sodium 80 MG/0.8 ML SYRINGE SC SCH (09:03)
[2022-03-27] MEDS: Aspirin Chewable 81 MG TAB PO SCH (09:03)
[2022-03-27] MEDS: Atorvastatin Calcium 40 MG TAB PO SCH (20:34)
[2022-03-27] MEDS: levETIRAcetam 500 MG TAB PO SCH (20:34)
[2022-03-28 06:08] LABS: Hemoglobin 7.8 g/dL (14.0-18.0); Mean Corpuscular HGB CONC 32.3 g/dL (32.0-36.0); Mean Corpuscular Hemoglobin 29.7 pg (27.0-31.0); Mean Platelet Volume 7.8 fL (7.4-10.4); Platelet Count 382 10x3/uL (130-400); Red Blood Cell (RBC) Count 2.63 mill/uL (4.70-6.10); White Blood Cell (WBC) Count 11.5 10x3/uL (4.8-10.8)
[2022-03-28 06:34] LABS: Anion Gap 11 mmol/L (10-20); BUN (Urea Nitrogen) 10 mg/dL (8.4-25.7); Calc. Creatinine Clearance 140 mL/min (70-130); Calcium 7.7 mg/dL (7.8-10.44); Carbon Dioxide 25 mmol/L (23-31); Chloride 104 mmol/L (98-107); Estimated GFR 114; Glucose 166 mg/dL (80-115); Magnesium 1.6 mg/dL (1.6-2.6); Potassium 3.7 mmol/L (3.5-5.1); Sodium 136 mmol/L (136-145)
[2022-03-28] MEDS ORDERED: Magnesium 2 GM/50 ML(in water) 2 GM in Premix Bag 1 BAG IVPB SCH (08:00)
[2022-03-28] MEDS: Carvedilol 25 MG TAB PO SCH ×2 (08:24→17:43)
[2022-03-28] MEDS: levETIRAcetam 500 MG TAB PO SCH ×2 (08:24→20:46)
[2022-03-28] MEDS: Insulin Glargine 30 UNITS/0.3 ML VIAL SC SCH (08:24)
[2022-03-28] MEDS: Aspirin Chewable 81 MG TAB PO SCH (08:24)
[2022-03-28] MEDS ORDERED: Ketamine 50 MG/ML (10ML VIAL) ONE (12:01)
[2022-03-28] MEDS ORDERED: Midazolam HCl 2 mg/2 ml Vial ONE (12:01)
[2022-03-28] MEDS ORDERED: PROPOFOL 200 MG/20 ML VIAL ONE (12:14)
[2022-03-28] MEDS: HumaLOG 300 UNITS/3 ML VIAL SC PRN (17:43)
[2022-03-28] MEDS: Atorvastatin Calcium 40 MG TAB PO SCH (20:46)
[2022-03-29 08:59] LABS: Magnesium 1.5 mg/dL (1.6-2.6)
[2022-03-29] MEDS: Aspirin Chewable 81 MG TAB PO SCH (09:05)
[2022-03-29] MEDS: Insulin Glargine 30 UNITS/0.3 ML VIAL SC SCH (09:06)
[2022-03-29] MEDS: levETIRAcetam 500 MG TAB PO SCH ×2 (09:06→21:21)
[2022-03-29] MEDS: Clopidogrel Bisulfate 75 MG TAB PO SCH (09:06)
[2022-03-29] MEDS: Carvedilol 25 MG TAB PO SCH ×2 (09:06→17:15)
[2022-03-29] MEDS ORDERED: Magnesium 2 GM/50 ML(in water) 2 GM in Premix Bag 1 BAG IVPB SCH (09:15)
[2022-03-29] MEDS: HumaLOG 300 UNITS/3 ML VIAL SC PRN ×2 (12:05→17:19)
[2022-03-29] MEDS: Atorvastatin Calcium 40 MG TAB PO SCH (21:21)
[2022-03-30 05:25] LABS: #Eosinphils 0.1 thou/uL (0.0-0.7); #Lymphocytes 1.6 thou/uL (1.20-3.40); #Monocytes 0.7 thou/uL (0.11-0.59); #Neutrophils 10.9 thou/uL (1.40-6.50); %Eosinophils 1.1 % (0.0-10.0); %Lymphocytes 11.9 % (21.0-51.0); %Monocytes 5.1 % (0.0-10.0); %Neutrophils 81.9 % (42.0-75.0); Hemoglobin 8.2 g/dL (14.0-18.0); Mean Corpuscular HGB CONC 32.3 g/dL (32.0-36.0); Mean Corpuscular Hemoglobin 29.4 pg (27.0-31.0); Mean Corpuscular Volume 91.1 fl (78.0-98.0); Mean Platelet Volume 7.1 fL (7.4-10.4); Platelet Count 365 10x3/uL (130-400); RBC Distribution Width 15.2 % (11.5-14.5); White Blood Cell (WBC) Count 13.3 10x3/uL (4.8-10.8)
[2022-03-30 05:41] LABS: ALT (SGPT) 20 U/L (8-55); AST (SGOT) 30 U/L (5-34); Albumin 1.7 g/dL (3.4-4.8); Alkaline Phosphatase 89 U/L (40-110); Anion Gap 9 mmol/L (10-20); BUN (Urea Nitrogen) 8 mg/dL (8.4-25.7); Bilirubin, Total 0.3 mg/dL (0.2-1.2); Calc. Creatinine Clearance 134 mL/min (70-130); Calcium 7.8 mg/dL (7.8-10.44); Carbon Dioxide 25 mmol/L (23-31); Chloride 105 mmol/L (98-107); Estimated GFR 113; Glucose 73 mg/dL (80-115); Magnesium 1.5 mg/dL (1.6-2.6); Potassium 3.8 mmol/L (3.5-5.1); Protein, Total 5.7 g/dL (5.8-8.1); Sodium 135 mmol/L (136-145)
[2022-03-30] MEDS ORDERED: Magnesium 2 GM/50 ML(in water) 2 GM in Premix Bag 1 BAG IVPB SCH (08:00)
[2022-03-30] MEDS: Aspirin Chewable 81 MG TAB PO SCH (08:36)
[2022-03-30] MEDS: levETIRAcetam 500 MG TAB PO SCH ×2 (08:36→20:35)
[2022-03-30] MEDS: Clopidogrel Bisulfate 75 MG TAB PO SCH (08:36)
[2022-03-30] MEDS: Carvedilol 25 MG TAB PO SCH ×2 (08:36→17:02)
[2022-03-30] MEDS: Insulin Glargine 30 UNITS/0.3 ML VIAL SC SCH (09:07)
[2022-03-30] MEDS: HumaLOG 300 UNITS/3 ML VIAL SC PRN ×3 (12:21→20:44)
[2022-03-30] MEDS: Atorvastatin Calcium 40 MG TAB PO SCH (20:35)
[2022-03-31 05:26] LABS: #Eosinphils 0.2 thou/uL (0.0-0.7); #Lymphocytes 1.6 thou/uL (1.20-3.40); #Monocytes 0.7 thou/uL (0.11-0.59); #Neutrophils 8.9 thou/uL (1.40-6.50); %Basophils 0.2 % (0.0-1.0); %Eosinophils 1.4 % (0.0-10.0); %Lymphocytes 14.4 % (21.0-51.0); %Monocytes 5.7 % (0.0-10.0); %Neutrophils 78.3 % (42.0-75.0); Hemoglobin 8.2 g/dL (14.0-18.0); Mean Corpuscular HGB CONC 32.8 g/dL (32.0-36.0); Mean Corpuscular Hemoglobin 29.9 pg (27.0-31.0); Mean Corpuscular Volume 91.1 fl (78.0-98.0); Mean Platelet Volume 7.2 fL (7.4-10.4); Platelet Count 316 10x3/uL (130-400); RBC Distribution Width 15.4 % (11.5-14.5); Red Blood Cell (RBC) Count 2.75 mill/uL (4.70-6.10); White Blood Cell (WBC) Count 11.4 10x3/uL (4.8-10.8)
[2022-03-31 05:43] LABS: ALT (SGPT) 19 U/L (8-55); AST (SGOT) 16 U/L (5-34); Albumin 1.8 g/dL (3.4-4.8); Alkaline Phosphatase 91 U/L (40-110); Anion Gap 9 mmol/L (10-20); BUN (Urea Nitrogen) 10 mg/dL (8.4-25.7); Bilirubin, Total 0.3 mg/dL (0.2-1.2); Calc. Creatinine Clearance 145 mL/min (70-130); Calcium 7.6 mg/dL (7.8-10.44); Carbon Dioxide 26 mmol/L (23-31); Chloride 104 mmol/L (98-107); Estimated GFR 115; Globulin 3.9 g/dL (2.4-3.5); Glucose 129 mg/dL (80-115); Potassium 3.7 mmol/L (3.5-5.1); Protein, Total 5.7 g/dL (5.8-8.1); Sodium 135 mmol/L (136-145)
[2022-03-31] MEDS: Insulin Glargine 30 UNITS/0.3 ML VIAL SC SCH (09:51)
[2022-03-31] MEDS: Clopidogrel Bisulfate 75 MG TAB PO SCH (09:52)
[2022-03-31] MEDS: levETIRAcetam 500 MG TAB PO SCH ×2 (09:52→20:37)
[2022-03-31] MEDS: Aspirin Chewable 81 MG TAB PO SCH (09:52)
[2022-03-31] MEDS: Carvedilol 25 MG TAB PO SCH ×2 (09:52→17:49)
[2022-03-31] MEDS: Atorvastatin Calcium 40 MG TAB PO SCH (20:37)
[2022-03-31] MEDS: HumaLOG 300 UNITS/3 ML VIAL SC PRN (20:37)
[2022-04-01] MEDS: HumaLOG 300 UNITS/3 ML VIAL SC PRN (05:50)
[2022-04-01] MEDS: Aspirin Chewable 81 MG TAB PO SCH (08:44)
[2022-04-01] MEDS: Clopidogrel Bisulfate 75 MG TAB PO SCH (08:44)
[2022-04-01] MEDS: Carvedilol 25 MG TAB PO SCH (08:44)
[2022-04-01] MEDS: levETIRAcetam 500 MG TAB PO SCH (08:46)
[2022-04-01] MEDS: Insulin Glargine 30 UNITS/0.3 ML VIAL SC SCH (08:46)
[2022-04-01 12:01] VITALS: BP 127/74; TEMP 97.5
== END 2022-04-01 13:00 | disposition home or self-care (01) | DRG 64 ==
LOC: ERS 15:04 → OBSVTOIN 18:53 → T4-A 18:53 → EDBD 18:53 → NEURO 03-26 20:57
PROVIDERS: ADMIT Hospitalist; ATTEND Internal Medicine
PROC: 30233N1 Transfusion of Nonautologous Red Blood Cells into Peripheral Vein, Percutaneous Approach (ICD-10-PCS; 2022-03-25)
PROC: 4A10X4Z Monitoring of Central Nervous Electrical Activity, External Approach (ICD-10-PCS; 2022-03-27)
PROC: B246ZZ4 Ultrasonography of Right and Left Heart, Transesophageal (ICD-10-PCS; principal; 2022-03-28)
DX: I63.9 Cerebral infarction, unspecified (principal); A41.9 Sepsis, unspecified organism; E43 Unspecified severe protein-calorie malnutrition; G92.8 Other toxic encephalopathy; E11.52 Type 2 diabetes mellitus with diabetic peripheral angiopathy with gangrene; I42.9 Cardiomyopathy, unspecified; F19.20 Other psychoactive substance dependence, uncomplicated; Z68.1 Body mass index [BMI] 19.9 or less, adult; F17.210 Nicotine dependence, cigarettes, uncomplicated; I10 Essential (primary) hypertension; I80.9 Phlebitis and thrombophlebitis of unspecified site; D64.9 Anemia, unspecified; G40.909 Epilepsy, unspecified, not intractable, without status epilepticus; E78.5 Hyperlipidemia, unspecified; I08.1 Rheumatic disorders of both mitral and tricuspid valves; Z20.822 Contact with and (suspected) exposure to COVID-19; Z86.73 Personal history of transient ischemic attack (TIA), and cerebral infarction without residual deficits; Z89.412 Acquired absence of left great toe; Z89.512 Acquired absence of left leg below knee; Z79.82 Long term (current) use of aspirin; Z79.4 Long term (current) use of insulin; Z79.899 Other long term (current) drug therapy
CPT/HCPCS: 36415; 36416; 36430; 70496; 70498; 70553; 80048; 80053; 80061; 80307; 82010; 82550; 82805; 83690; 83735; 83880; 84443; 84484; 85025; 85027; 85610; 85730; 86850; 86900; 86901; 87040; 93005; 93010; 93312; 95712; 95819; 95957; 96374; 97139; A9579; J0692; J0696; J1650; J1815; J2250; J2704; J3475; J7050; J7999; P9016; Q9967; U0003; U0005

== ENCOUNTER 2022-11-18 22:02 | Emergency (ER) | payer SELFPAY ==
[2022-11-18 22:49] LABS: #Basophils 0.1 thou/uL (0.0-0.2); #Eosinphils 0.3 thou/uL (0.0-0.7); #Monocytes 0.5 thou/uL (0.11-0.59); #Neutrophils 4.2 thou/uL (1.40-6.50); %Basophils 0.5 % (0.0-1.0); %Eosinophils 2.8 % (0.0-10.0); %Lymphocytes 44.1 % (21.0-51.0); %Monocytes 5.8 % (0.0-10.0); %Neutrophils 46.6 % (42.0-75.0); Hematocrit 43.6 % (42.0-52.0); Hemoglobin 14.9 g/dL (14.0-18.0); Mean Corpuscular HGB CONC 34.2 g/dL (32.0-36.0); Mean Corpuscular Hemoglobin 30.5 pg (27.0-31.0); Mean Corpuscular Volume 89.2 fl (78.0-98.0); Platelet Count 218 10x3/uL (130-400); RBC Distribution Width 12.6 % (11.5-14.5); Red Blood Cell (RBC) Count 4.89 mill/uL (4.70-6.10); White Blood Cell (WBC) Count 9.1 10x3/uL (4.8-10.8)
[2022-11-18 23:13] LABS: ALT (SGPT) 14 U/L (8-55); AST (SGOT) 16 U/L (5-34); Albumin 3.5 g/dL (3.4-4.8); Alkaline Phosphatase 147 U/L (40-110); Anion Gap 12 mmol/L (10-20); BUN (Urea Nitrogen) 12 mg/dL (8.4-25.7); Bilirubin, Total 0.2 mg/dL (0.2-1.2); Calc. Creatinine Clearance 0 mL/min (70-130); Calcium 8.8 mg/dL (7.8-10.44); Carbon Dioxide 24 mmol/L (23-31); Chloride 98 mmol/L (98-107); Estimated GFR 85; Globulin 3.4 g/dL (2.4-3.5); Lipase 31 U/L (8-78); Protein, Total 6.9 g/dL (5.8-8.1); Sodium 130 mmol/L (136-145)
[2022-11-18 23:14] LABS: Glucose 517 mg/dL (80-115)
[2022-11-18 23:16] LABS: Troponin I Less than 0.010 ng/mL (< 0.028)
[2022-11-18] MEDS ORDERED: HumaLOG 300 UNITS/3 ML VIAL ONE (23:43)
[2022-11-18] MEDS ORDERED: Insulin Glargine 30 UNITS/0.3 ML VIAL SC SCH (23:59)
[2022-11-19 00:18] LABS: Bilirubin Negative (Negative); Blood, Urine Negative (Negative); CAUTI Indications for Culture Acute Hematuria; Clarity Turbid (Clear); Glucose, Urine (Dipstick) Greater than 1000 mg/dL (Negative); Ketone, Urine Negative (Negative); Leukocyte 250 Leu/uL (Negative); Nitrite 2+ (Negative); Protein, Urine (Dipstick) Negative (Neg-Trace); Specific Gravity, Urine 1.035 (1.002-1.036); Urobilinogen Normal mg/dL (Less than 2); pH, Urine 6.5 (5.0-9.0)
[2022-11-19 00:26] LABS: RBC/HPF 0-3 HPF (0-3); Squamous Epithelial 0-3 HPF (0-3)
[2022-11-19 00:27] LABS: Bacteria/HPF 3+ HPF (None Seen); Yeast-Budding 2+ HPF (None Seen)
[2022-11-19 00:28] LABS: Urine Culture Reflex No No
[2022-11-19] MEDS ORDERED: Insulin Glargine 30 UNITS/0.3 ML VIAL SC SCH (01:30)
== END 2022-11-19 01:39 | disposition home or self-care (01) ==
LOC: ERS 22:02
DX: N39.0 Urinary tract infection, site not specified (principal); E11.65 Type 2 diabetes mellitus with hyperglycemia; I10 Essential (primary) hypertension; Z79.82 Long term (current) use of aspirin; Z79.899 Other long term (current) drug therapy; Z79.4 Long term (current) use of insulin
CPT/HCPCS: 36415; 36416; 71045; 80053; 81001; 83605; 83690; 84484; 85025; 96360; J1815

== ENCOUNTER 2023-01-03 17:04 | Inpatient (IN) | payer SELFPAY ==
[2023-01-03 17:47] LABS: #Basophils 0.1 thou/uL (0.0-0.2); #Eosinphils 0.2 thou/uL (0.0-0.7); #Monocytes 0.6 thou/uL (0.11-0.59); #Neutrophils 6.7 thou/uL (1.40-6.50); %Basophils 0.6 % (0.0-1.0); %Eosinophils 1.5 % (0.0-10.0); %Monocytes 5.6 % (0.0-10.0); Hemoglobin 17.1 g/dL (14.0-18.0); Mean Corpuscular HGB CONC 33.5 g/dL (32.0-36.0); Mean Corpuscular Hemoglobin 30.3 pg (27.0-31.0); Mean Corpuscular Volume 90.3 fl (78.0-98.0); Mean Platelet Volume 10.8 fL (7.4-10.4); Platelet Count 241 10x3/uL (130-400); RBC Distribution Width 12.7 % (11.5-14.5); Red Blood Cell (RBC) Count 5.65 mill/uL (4.70-6.10); White Blood Cell (WBC) Count 10.5 10x3/uL (4.8-10.8)
[2023-01-03 18:32] LABS: Troponin I 0.019 ng/mL (< 0.028)
[2023-01-03 18:34] LABS: ALT (SGPT) 14 U/L (8-55); AST (SGOT) 20 U/L (5-34); Albumin 3.4 g/dL (3.4-4.8); Alkaline Phosphatase 125 U/L (40-110); Anion Gap 24 mmol/L (10-20); BUN (Urea Nitrogen) 11 mg/dL (8.4-25.7); Bilirubin, Total 0.4 mg/dL (0.2-1.2); Calc. Creatinine Clearance 0 mL/min (70-130); Calcium 9.7 mg/dL (7.8-10.44); Carbon Dioxide 12 mmol/L (23-31); Chloride 96 mmol/L (98-107); Estimated GFR 75; Globulin 4.2 g/dL (2.4-3.5); Glucose 422 mg/dL (80-115); Potassium 4.4 mmol/L (3.5-5.1); Protein, Total 7.6 g/dL (5.8-8.1); Sodium 128 mmol/L (136-145)
[2023-01-03 19:43] LABS: Magnesium 1.7 mg/dL (1.6-2.6); Phosphorus 3.9 mg/dL (2.3-4.7)
[2023-01-03] MEDS ORDERED: INSULIN REGULAR IN 0.9 % NACL 100 UNITS/100 ML BAG ONE (19:43)
[2023-01-03] MEDS ORDERED: Sodium Chloride 0.9% 1,000 ML IV PRN ×4 (20:03)
[2023-01-03] MEDS ORDERED: Acetaminophen 325 MG TAB PO PRN (20:03)
[2023-01-03] MEDS ORDERED: D5 1/2 NS w/20 mEq KCL 1,000 ML IV PRN (20:03)
[2023-01-03] MEDS ORDERED: Electrolyte Replacement Protocol 1 EACH IVPB ONE (20:03)
[2023-01-03] MEDS ORDERED: HYDROcodone/Acetaminophen 5/325 mg Tablet PO PRN (20:03)
[2023-01-03] MEDS ORDERED: NS 0.9% w/ 20 MEQ KCL 1,000 ML IV PRN ×2 (20:03)
[2023-01-03] MEDS ORDERED: Dextrose 50% Abboject 50 ML SYRINGE SLOW IVP PRN (20:03)
[2023-01-03] MEDS ORDERED: Ondansetron ODT 4 MG TAB PO PRN (20:03)
[2023-01-03] MEDS ORDERED: Dextrose 5 %-0.45 % NaCl 1,000 ML IV PRN (20:03)
[2023-01-03] MEDS ORDERED: Magnesium 2 GM/50 ML(in water) 2 GM in Premix Bag 1 BAG IVPB SCH ×2 (20:15→21:45)
[2023-01-03] MEDS ORDERED: Electrolyte Replacement Protocol FS PRN (20:15)
[2023-01-03] MEDS ORDERED: HUMULIN R 100 UNITS in Sodium Chloride 0.9% 100 ML IVPB SCH (20:15)
[2023-01-03] MEDS ORDERED: Ipratropium/Albuterol 3 ML NEB NEB PRN (20:21)
[2023-01-03 20:55] LABS: Bacteria/HPF 2+ HPF (None Seen); Bilirubin Negative (Negative); Blood, Urine 2+ (Negative); CAUTI Indications for Culture Dysuria,urgency,freq; Clarity Turbid (Clear); Glucose, Urine (Dipstick) Greater than 1000 mg/dL (Negative); Ketone, Urine 20 mg/dL (Negative); Leukocyte 500 Leu/uL (Negative); Nitrite Negative (Negative); Protein, Urine (Dipstick) 70 mg/dL (Neg-Trace); RBC/HPF 21-50 HPF (0-3); Specific Gravity, Urine 1.032 (1.002-1.036); Squamous Epithelial None Seen HPF (0-3); Urobilinogen Normal mg/dL (Less than 2); WBC/HPF Greater than 50 HPF (0-3); Yeast-Budding 2+ HPF (None Seen); pH, Urine 5.5 (5.0-9.0)
[2023-01-03 20:56] LABS: Amphetamine Not Detected (NotDetected); Barbiturates Screen Not Detected (NotDetected); Benzodiazepine Screen Not Detected (NotDetected); Cocaine Metabolite Screen Not Detected (NotDetected); Methadone Not Detected (NotDetected); Methamphetamine Not Detected (NotDetected); Opiate Screen Not Detected (NotDetected); Oxycodone Screen Not Detected (NotDetected); Phencyclidine (PCP) Not Detected (NotDetected); THC/Cannabinoid Screen Not Detected (NotDetected); Tricyclic Screen Not Detected (NotDetected); Urine Culture Reflex Yes Yes
[2023-01-03 21:10] LABS: Actual Bicarbonate (HCO3v) 23.8 mEq/L (22-28); Base Excess -2.4 mEq/L (-2.0 to +3.0); Calcium, Ionized (venous) 1.13 mmol/L (1.16-1.32); Chloride (VBG) 99 mmol/L (98-106); Hematocrit-VBG 46 % (42.0-52.0); Hemoglobin (Hb) 15.7 g/dL (13.1-17.2); Potassium (VBG) 4.19 mmol/L (3.70-5.30); Sodium 132.8 mmol/L (133-146); pH (venous) 7.334 (7.32-7.43)
[2023-01-03 21:29] LABS: Anion Gap 13 mmol/L (10-20); BUN (Urea Nitrogen) 11 mg/dL (8.4-25.7); Calc. Creatinine Clearance 0 mL/min (70-130); Calcium 9.1 mg/dL (7.8-10.44); Carbon Dioxide 23 mmol/L (23-31); Chloride 100 mmol/L (98-107); Estimated GFR 97; Glucose 295 mg/dL (80-115); Potassium 4.2 mmol/L (3.5-5.1); Sodium 132 mmol/L (136-145)
[2023-01-03] MEDS: Heparin 5,000 UNITS/ML VIAL SC SCH (21:56)
[2023-01-03] MEDS: Famotidine 20 MG TAB PO SCH (21:57)
[2023-01-03] MEDS: levETIRAcetam 500 MG/5 ML VIAL SLOW IVP SCH (21:57)
[2023-01-03] MEDS: Atorvastatin Calcium 40 MG TAB PO SCH (21:57)
[2023-01-03] MEDS: cefTRIAXone\\ROCEPHIN 1 GM in Sodium Chloride 0.9% 100 ML IVPB SCH (23:04)
[2023-01-04 01:47] LABS: Anion Gap 12 mmol/L (10-20); BUN (Urea Nitrogen) 9 mg/dL (8.4-25.7); Calc. Creatinine Clearance 83 mL/min (70-130); Calcium 8.9 mg/dL (7.8-10.44); Carbon Dioxide 25 mmol/L (23-31); Chloride 104 mmol/L (98-107); Estimated GFR 102; Glucose 151 mg/dL (80-115); Potassium 3.7 mmol/L (3.5-5.1); Sodium 137 mmol/L (136-145)
[2023-01-04] MEDS ORDERED: Dextrose 5% in Water 1,000 ML IV PRN (03:23)
[2023-01-04] MEDS ORDERED: Glucagon 1 MG/ML KIT IM PRN (03:23)
[2023-01-04] MEDS ORDERED: HumaLOG 300 UNITS/3 ML VIAL SC PRN (03:23)
[2023-01-04] MEDS ORDERED: Dextrose 50% Abboject 50 ML SYRINGE SLOW IVP PRN (03:23)
[2023-01-04] MEDS ORDERED: Insulin Glargine 30 UNITS/0.3 ML VIAL SC SCH (03:30)
[2023-01-04] MEDS ORDERED: Sodium Chloride 0.9% 1,000 ML IV SCH (03:30)
[2023-01-04 05:44] LABS: #Basophils 0.1 thou/uL (0.0-0.2); #Eosinphils 0.3 thou/uL (0.0-0.7); #Monocytes 0.8 thou/uL (0.11-0.59); #Neutrophils 6.9 thou/uL (1.40-6.50); %Basophils 0.4 % (0.0-1.0); %Eosinophils 2.7 % (0.0-10.0); %Lymphocytes 30.3 % (21.0-51.0); %Monocytes 6.9 % (0.0-10.0); %Neutrophils 59.4 % (42.0-75.0); Hematocrit 42.3 % (42.0-52.0); Hemoglobin 14.3 g/dL (14.0-18.0); Mean Corpuscular HGB CONC 33.8 g/dL (32.0-36.0); Mean Corpuscular Hemoglobin 30.5 pg (27.0-31.0); Mean Corpuscular Volume 90.2 fl (78.0-98.0); Mean Platelet Volume 10.2 fL (7.4-10.4); Platelet Count 257 10x3/uL (130-400); RBC Distribution Width 12.7 % (11.5-14.5); Red Blood Cell (RBC) Count 4.69 mill/uL (4.70-6.10); White Blood Cell (WBC) Count 11.7 10x3/uL (4.8-10.8)
[2023-01-04 06:14] LABS: Anion Gap 14 mmol/L (10-20); BUN (Urea Nitrogen) 9 mg/dL (8.4-25.7); Calc. Creatinine Clearance 80 mL/min (70-130); Calcium 9.1 mg/dL (7.8-10.44); Carbon Dioxide 22 mmol/L (23-31); Chloride 104 mmol/L (98-107); Estimated GFR 101; Glucose 178 mg/dL (80-115); Potassium 3.9 mmol/L (3.5-5.1); Sodium 136 mmol/L (136-145)
[2023-01-04 06:15] LABS: ALT (SGPT) 12 U/L (8-55); AST (SGOT) 11 U/L (5-34); Albumin 3.3 g/dL (3.4-4.8); Alkaline Phosphatase 97 U/L (40-110); Anion Gap 14 mmol/L (10-20); BUN (Urea Nitrogen) 9 mg/dL (8.4-25.7); Bilirubin, Total 0.4 mg/dL (0.2-1.2); Calc. Creatinine Clearance 77 mL/min (70-130); Calcium 8.8 mg/dL (7.8-10.44); Carbon Dioxide 23 mmol/L (23-31); Chloride 103 mmol/L (98-107); Estimated GFR 100; Globulin 2.7 g/dL (2.4-3.5); Glucose 181 mg/dL (80-115); Potassium 4.1 mmol/L (3.5-5.1); Sodium 136 mmol/L (136-145)
[2023-01-04] MEDS: Mometasone/Formoterol 60 PUFF AER INH SCH ×2 (07:14→18:56)
[2023-01-04] MEDS: Famotidine 20 MG TAB PO SCH ×2 (08:21→20:11)
[2023-01-04] MEDS: Heparin 5,000 UNITS/ML VIAL SC SCH ×3 (08:21→20:11)
[2023-01-04] MEDS: levETIRAcetam 500 MG/5 ML VIAL SLOW IVP SCH ×2 (08:21→20:11)
[2023-01-04] MEDS ORDERED: Clopidogrel Bisulfate 75 MG TAB PO SCH (09:00)
[2023-01-04] MEDS: HumaLOG 300 UNITS/3 ML VIAL SC PRN ×3 (12:01→20:20)
[2023-01-04] MEDS: Atorvastatin Calcium 40 MG TAB PO SCH (20:11)
[2023-01-04] MEDS: cefTRIAXone\\ROCEPHIN 1 GM in Sodium Chloride 0.9% 100 ML IVPB SCH (23:43)
[2023-01-05 07:11] LABS: Anion Gap 16 mmol/L (10-20); BUN (Urea Nitrogen) 5 mg/dL (8.4-25.7); Calc. Creatinine Clearance 88 mL/min (70-130); Calcium 9.3 mg/dL (7.8-10.44); Carbon Dioxide 21 mmol/L (23-31); Chloride 104 mmol/L (98-107); Estimated GFR 104; Glucose 143 mg/dL (80-115); Potassium 3.8 mmol/L (3.5-5.1); Sodium 137 mmol/L (136-145)
[2023-01-05] MEDS: Mometasone/Formoterol 60 PUFF AER INH SCH ×2 (07:30→18:24)
[2023-01-05] MEDS ORDERED: LevoFLOXacin 500 MG TAB PO SCH (08:45)
[2023-01-05] MEDS: Heparin 5,000 UNITS/ML VIAL SC SCH ×3 (08:57→20:17)
[2023-01-05] MEDS: Gabapentin 300 MG CAP PO SCH (08:57)
[2023-01-05] MEDS: levETIRAcetam 500 MG TAB PO SCH ×2 (08:58→20:18)
[2023-01-05] MEDS: Famotidine 20 MG TAB PO SCH ×2 (08:58→20:18)
[2023-01-05] MEDS: Clopidogrel Bisulfate 75 MG TAB PO SCH (08:58)
[2023-01-05] MEDS ORDERED: Non-Formulary Item 1 EACH (Gabapentin [Gabapentin] 600 MG Tablet) PO SCH (09:00)
[2023-01-05] MEDS: HumaLOG 300 UNITS/3 ML VIAL SC PRN ×3 (12:27→21:17)
[2023-01-05] MEDS ORDERED: traZODone HCl 50 MG TAB PO PRN (16:18)
[2023-01-05] MEDS: Atorvastatin Calcium 40 MG TAB PO SCH (20:18)
[2023-01-06] MEDS ORDERED: LevoFLOXacin 500 MG TAB PO SCH (06:00)
[2023-01-06 06:09] LABS: Anion Gap 14 mmol/L (10-20); BUN (Urea Nitrogen) 10 mg/dL (8.4-25.7); Calc. Creatinine Clearance 74 mL/min (70-130); Calcium 8.9 mg/dL (7.8-10.44); Carbon Dioxide 24 mmol/L (23-31); Chloride 103 mmol/L (98-107); Estimated GFR 99; Glucose 257 mg/dL (80-115); Potassium 3.9 mmol/L (3.5-5.1); Sodium 137 mmol/L (136-145)
[2023-01-06] MEDS: Mometasone/Formoterol 60 PUFF AER INH SCH ×2 (07:00→18:47)
[2023-01-06] MEDS ORDERED: Carvedilol 25 MG TAB PO SCH (08:00)
[2023-01-06] MEDS: Famotidine 20 MG TAB PO SCH ×2 (08:28→20:44)
[2023-01-06] MEDS: Sulfameth/Trimethoprim DS 800-160mg TAB PO SCH ×2 (08:28→20:44)
[2023-01-06] MEDS: Gabapentin 300 MG CAP PO SCH (08:28)
[2023-01-06] MEDS: Aspirin Chewable 81 MG TAB PO SCH (08:28)
[2023-01-06] MEDS: Clopidogrel Bisulfate 75 MG TAB PO SCH (08:29)
[2023-01-06] MEDS: Heparin 5,000 UNITS/ML VIAL SC SCH ×3 (08:29→20:44)
[2023-01-06] MEDS: Nicotine 14 MG PATCH TD SCH (08:29)
[2023-01-06] MEDS: levETIRAcetam 500 MG TAB PO SCH ×2 (08:29→20:44)
[2023-01-06] MEDS: Carvedilol 6.25 MG TAB PO SCH ×2 (08:29→14:44)
[2023-01-06] MEDS ORDERED: Insulin Glargine 30 UNITS/0.3 ML VIAL SC SCH (10:15)
[2023-01-06] MEDS: HumaLOG 300 UNITS/3 ML VIAL SC PRN ×2 (11:47→21:05)
[2023-01-06] MEDS: Atorvastatin Calcium 40 MG TAB PO SCH (20:44)
[2023-01-06] MEDS: QUEtiapine 25 MG TAB PO SCH (20:45)
[2023-01-07 04:45] LABS: Anion Gap 12 mmol/L (10-20); BUN (Urea Nitrogen) 8 mg/dL (8.4-25.7); Calc. Creatinine Clearance 83 mL/min (70-130); Calcium 9.3 mg/dL (7.8-10.44); Carbon Dioxide 22 mmol/L (23-31); Chloride 108 mmol/L (98-107); Estimated GFR 102; Glucose 63 mg/dL (80-115); Sodium 138 mmol/L (136-145)
[2023-01-07] MEDS: Mometasone/Formoterol 60 PUFF AER INH SCH ×2 (06:43→18:25)
[2023-01-07] MEDS: Famotidine 20 MG TAB PO SCH ×2 (08:29→20:03)
[2023-01-07] MEDS: Sulfameth/Trimethoprim DS 800-160mg TAB PO SCH ×2 (08:29→20:03)
[2023-01-07] MEDS: levETIRAcetam 500 MG TAB PO SCH ×2 (08:29→20:03)
[2023-01-07] MEDS: Clopidogrel Bisulfate 75 MG TAB PO SCH (08:29)
[2023-01-07] MEDS: Aspirin Chewable 81 MG TAB PO SCH (08:29)
[2023-01-07] MEDS: Gabapentin 300 MG CAP PO SCH (08:29)
[2023-01-07] MEDS: Nicotine 14 MG PATCH TD SCH (08:30)
[2023-01-07] MEDS: Carvedilol 6.25 MG TAB PO SCH ×2 (08:30→16:00)
[2023-01-07] MEDS ORDERED: Insulin Glargine 30 UNITS/0.3 ML VIAL SC SCH (09:00)
[2023-01-07] MEDS ORDERED: Regadenoson 0.4 MG/5 ML SYRINGE ONE (16:04)
[2023-01-07] MEDS: HumaLOG 300 UNITS/3 ML VIAL SC PRN (17:41)
[2023-01-07] MEDS: Atorvastatin Calcium 40 MG TAB PO SCH (20:03)
[2023-01-07] MEDS: QUEtiapine 25 MG TAB PO SCH (20:03)
[2023-01-08] MEDS ORDERED: Communication Order-Pharmacy FS SCH (06:00)
[2023-01-08] MEDS: Aspirin Chewable 81 MG TAB PO SCH (06:03)
[2023-01-08] MEDS: Gabapentin 300 MG CAP PO SCH (06:03)
[2023-01-08] MEDS: Famotidine 20 MG TAB PO SCH ×2 (06:03→21:09)
[2023-01-08] MEDS: Carvedilol 6.25 MG TAB PO SCH ×2 (06:03→18:15)
[2023-01-08] MEDS: Sulfameth/Trimethoprim DS 800-160mg TAB PO SCH ×2 (06:03→21:09)
[2023-01-08] MEDS: levETIRAcetam 500 MG TAB PO SCH ×2 (06:03→21:09)
[2023-01-08] MEDS: Mometasone/Formoterol 60 PUFF AER INH SCH ×2 (07:00→18:39)
[2023-01-08 07:04] LABS: Sodium 135 mmol/L (136-145)
[2023-01-08 07:05] LABS: Anion Gap 12 mmol/L (10-20); BUN (Urea Nitrogen) 9 mg/dL (8.4-25.7); Calc. Creatinine Clearance 73 mL/min (70-130); Calcium 8.8 mg/dL (7.6-10.4); Carbon Dioxide 23 mmol/L (23-31); Chloride 104 mmol/L (98-107); Estimated GFR 98; Glucose 237 mg/dL (80-115)
[2023-01-08] MEDS: Nicotine 14 MG PATCH TD SCH (07:57)
[2023-01-08] MEDS: Clopidogrel Bisulfate 75 MG TAB PO SCH (07:58)
[2023-01-08] MEDS ORDERED: Lidocaine 1% (PF) 30 ML VIAL ONE (08:20)
[2023-01-08] MEDS ORDERED: Heparin 10,000 UNITS/ 10 ML VIAL ONE (09:00)
[2023-01-08] MEDS ORDERED: Midazolam HCl 2 mg/2 ml Vial ONE (09:00)
[2023-01-08] MEDS ORDERED: Nitroglycerin 50 MG/250 ML BOT 0 ML ONE (09:00)
[2023-01-08] MEDS ORDERED: fentaNYL 50 mcg/mL 1 mL Vial ONE (09:00)
[2023-01-08] MEDS ORDERED: Insulin Glargine 30 UNITS/0.3 ML VIAL SC SCH (09:00)
[2023-01-08 09:04] LABS: Hemoglobin A1c Greater than 14.0 % (4.0-6.0)
[2023-01-08] MEDS ORDERED: Sodium Chloride 0.9% 250 ML 200 ML IV PRN (12:24)
[2023-01-08] MEDS ORDERED: Acetaminophen/Codeine 30-300mg Tablet PO PRN ×2 (12:24)
[2023-01-08] MEDS ORDERED: Nitroglycerin 0.4 MG TAB (25 Tab Bottle) SL PRN (12:24)
[2023-01-08 15:20] VITALS: BMI 16.5
[2023-01-08] MEDS ORDERED: Iopamidol 370 76% 100 ML VIAL ONE (15:45)
[2023-01-08] MEDS: HumaLOG 300 UNITS/3 ML VIAL SC PRN ×2 (18:15→21:14)
[2023-01-08] MEDS: QUEtiapine 25 MG TAB PO SCH (21:09)
[2023-01-08] MEDS: Atorvastatin Calcium 40 MG TAB PO SCH (21:09)
[2023-01-09 05:54] LABS: Anion Gap 13 mmol/L (10-20); BUN (Urea Nitrogen) 13 mg/dL (8.4-25.7); Calc. Creatinine Clearance 58 mL/min (70-130); Calcium 8.9 mg/dL (7.8-10.44); Carbon Dioxide 26 mmol/L (23-31); Chloride 99 mmol/L (98-107); Estimated GFR 78; Potassium 4.6 mmol/L (3.5-5.1); Sodium 133 mmol/L (136-145)
[2023-01-09 05:57] LABS: Glucose 488 mg/dL (80-115)
[2023-01-09] MEDS: HumaLOG 300 UNITS/3 ML VIAL SC PRN ×4 (06:11→21:12)
[2023-01-09] MEDS: Mometasone/Formoterol 60 PUFF AER INH SCH ×2 (07:02→18:53)
[2023-01-09] MEDS: Carvedilol 6.25 MG TAB PO SCH ×2 (09:59→17:34)
[2023-01-09] MEDS: Famotidine 20 MG TAB PO SCH (09:59)
[2023-01-09] MEDS: Sulfameth/Trimethoprim DS 800-160mg TAB PO SCH ×2 (09:59→21:11)
[2023-01-09] MEDS: Lisinopril 2.5 MG TAB PO SCH ×2 (09:59→21:11)
[2023-01-09] MEDS: levETIRAcetam 500 MG TAB PO SCH ×2 (09:59→21:11)
[2023-01-09] MEDS: Insulin Glargine 30 UNITS/0.3 ML VIAL SC SCH (10:00)
[2023-01-09] MEDS: Clopidogrel Bisulfate 75 MG TAB PO SCH (10:00)
[2023-01-09] MEDS: Gabapentin 300 MG CAP PO SCH (10:00)
[2023-01-09] MEDS: Empagliflozin 10 MG TAB PO SCH (10:00)
[2023-01-09] MEDS: Aspirin Chewable 81 MG TAB PO SCH (10:00)
[2023-01-09] MEDS: Nicotine 14 MG PATCH TD SCH (10:07)
[2023-01-09] MEDS: QUEtiapine 25 MG TAB PO SCH (21:11)
[2023-01-09] MEDS: Atorvastatin Calcium 40 MG TAB PO SCH (21:11)
[2023-01-10 05:06] LABS: Anion Gap 14 mmol/L (10-20); BUN (Urea Nitrogen) 16 mg/dL (8.4-25.7); Calc. Creatinine Clearance 56 mL/min (70-130); Calcium 9.4 mg/dL (7.8-10.44); Carbon Dioxide 24 mmol/L (23-31); Chloride 103 mmol/L (98-107); Estimated GFR 75; Glucose 147 mg/dL (80-115); Sodium 137 mmol/L (136-145)
[2023-01-10] MEDS: HumaLOG 300 UNITS/3 ML VIAL SC PRN ×2 (06:19→12:14)
[2023-01-10] MEDS: Mometasone/Formoterol 60 PUFF AER INH SCH (07:44)
[2023-01-10] MEDS: Gabapentin 300 MG CAP PO SCH (09:24)
[2023-01-10] MEDS: levETIRAcetam 500 MG TAB PO SCH (09:25)
[2023-01-10] MEDS: Clopidogrel Bisulfate 75 MG TAB PO SCH (09:25)
[2023-01-10] MEDS: Empagliflozin 10 MG TAB PO SCH (09:25)
[2023-01-10] MEDS: Sulfameth/Trimethoprim DS 800-160mg TAB PO SCH (09:25)
[2023-01-10] MEDS: Lisinopril 2.5 MG TAB PO SCH (09:25)
[2023-01-10] MEDS: Carvedilol 6.25 MG TAB PO SCH (09:26)
[2023-01-10] MEDS: Insulin Glargine 30 UNITS/0.3 ML VIAL SC SCH (09:26)
[2023-01-10] MEDS: Aspirin Chewable 81 MG TAB PO SCH (09:26)
[2023-01-10] MEDS: Nicotine 14 MG PATCH TD SCH (09:33)
[2023-01-10 16:16] VITALS: BP 110/71; TEMP 97.7
== END 2023-01-10 17:15 | disposition home or self-care (01) | DRG 637 ==
LOC: ERS 17:04 → IMCU/EMU 19:42 → SURG A 01-05 16:00 → 2NO 01-06 12:07
PROVIDERS: ADMIT Internal Medicine; ATTEND Internal Medicine Critical Care Medicine
PROC: 4A043R1 Measurement of Venous Saturation, Peripheral, Percutaneous Approach (ICD-10-PCS; principal; 2023-01-03)
PROC: 4A023N7 Measurement of Cardiac Sampling and Pressure, Left Heart, Percutaneous Approach (ICD-10-PCS; 2023-01-08)
PROC: B2151ZZ Fluoroscopy of Left Heart using Low Osmolar Contrast (ICD-10-PCS; 2023-01-08)
PROC: B2111ZZ Fluoroscopy of Multiple Coronary Arteries using Low Osmolar Contrast (ICD-10-PCS; 2023-01-08)
DX: E11.10 Type 2 diabetes mellitus with ketoacidosis without coma (principal); I50.21 Acute systolic (congestive) heart failure; G93.40 Encephalopathy, unspecified; N39.0 Urinary tract infection, site not specified; I42.9 Cardiomyopathy, unspecified; F17.210 Nicotine dependence, cigarettes, uncomplicated; G40.909 Epilepsy, unspecified, not intractable, without status epilepticus; E11.51 Type 2 diabetes mellitus with diabetic peripheral angiopathy without gangrene; I25.10 Atherosclerotic heart disease of native coronary artery without angina pectoris; J44.9 Chronic obstructive pulmonary disease, unspecified; I11.0 Hypertensive heart disease with heart failure; Z79.82 Long term (current) use of aspirin; Z79.899 Other long term (current) drug therapy; Z79.4 Long term (current) use of insulin; Z86.73 Personal history of transient ischemic attack (TIA), and cerebral infarction without residual deficits; Z89.512 Acquired absence of left leg below knee; Z89.421 Acquired absence of other right toe(s); Z79.02 Long term (current) use of antithrombotics/antiplatelets
CPT/HCPCS: 36415; 36416; 70450; 71045; 78452; 80048; 80053; 80306; 82010; 82805; 83036; 83735; 83880; 84100; 84145; 84484; 85025; 87040; 87077; 87086; 87149; 87186; 93005; 93017; 93306; 93458; 93880; 93923; 96361; 96365; 99152; A9500; C1769; J0696; J1644; J1650; J1815; J1953; J2001; J2250; J2785; J3010; J3475; J3480; J3490; J7050; Q9967

== ENCOUNTER 2023-01-13 17:49 | Inpatient (IN) | payer OTHER, SELFPAY ==
[~2023-01-13 17:49] MED LIST changes: -Iopamidol-370 76% 500 ML 1 ML ONE; +Iopamidol-370 76% 500 ML MDV (1 ML CHARGE) ONE
[2023-01-13] MEDS ORDERED: Cefepime 2 GM VIAL ONE (18:45)
[2023-01-13 18:46] LABS: #Basophils 0.1 thou/uL (0.0-0.2); #Eosinphils 0.2 thou/uL (0.0-0.7); #Neutrophils 11.1 thou/uL (1.40-6.50); %Basophils 0.4 % (0.0-1.0); %Lymphocytes 27.5 % (21.0-51.0); %Neutrophils 64.6 % (42.0-75.0); Hematocrit 52.9 % (42.0-52.0); Hemoglobin 17.7 g/dL (14.0-18.0); Mean Corpuscular HGB CONC 33.5 g/dL (32.0-36.0); Mean Corpuscular Hemoglobin 29.9 pg (27.0-31.0); Mean Corpuscular Volume 89.4 fl (78.0-98.0); Mean Platelet Volume 10.5 fL (7.4-10.4); Platelet Count 367 10x3/uL (130-400); RBC Distribution Width 12.7 % (11.5-14.5); Red Blood Cell (RBC) Count 5.92 mill/uL (4.70-6.10); White Blood Cell (WBC) Count 17.1 10x3/uL (4.8-10.8)
[2023-01-13] MEDS ORDERED: VANCOMYCIN 1.25 GM/250 ML BAG 1.25 GM in Premix Bag 1 BAG IVPB SCH (19:00)
[2023-01-13 19:12] LABS: ALT (SGPT) 19 U/L (8-55); AST (SGOT) 11 U/L (5-34); Albumin 4.8 g/dL (3.4-4.8); Alkaline Phosphatase 129 U/L (40-110); Anion Gap 21 mmol/L (10-20); BUN (Urea Nitrogen) 17 mg/dL (8.4-25.7); Bilirubin, Total 0.5 mg/dL (0.2-1.2); Calc. Creatinine Clearance 0 mL/min (70-130); Calcium 10.8 mg/dL (7.8-10.44); Carbon Dioxide 31 mmol/L (23-31); Chloride 87 mmol/L (98-107); Estimated GFR 51; Potassium 4.4 mmol/L (3.5-5.1); Protein, Total 8.8 g/dL (5.8-8.1); Sodium 135 mmol/L (136-145)
[2023-01-13 19:14] LABS: Glucose 514 mg/dL (80-115)
[2023-01-13 19:15] LABS: Troponin I Less than 0.010 ng/mL (< 0.028)
[2023-01-13 19:21] LABS: Bilirubin Negative (Negative); Blood, Urine Trace (Negative); CAUTI Indications for Culture Dysuria,urgency,freq; Clarity Turbid (Clear); Glucose, Urine (Dipstick) Greater than 1000 mg/dL (Negative); Ketone, Urine Negative (Negative); Leukocyte 500 Leu/uL (Negative); Nitrite Negative (Negative); Protein, Urine (Dipstick) 20 mg/dL (Neg-Trace); Specific Gravity, Urine 1.034 (1.002-1.036); Urobilinogen Normal mg/dL (Less than 2); pH, Urine 5.5 (5.0-9.0)
[2023-01-13 19:22] LABS: Bacteria/HPF Rare-Few HPF (None Seen); RBC/HPF 0-3 HPF (0-3); Squamous Epithelial 0-3 HPF (0-3); WBC/HPF 21-50 HPF (0-3); Yeast-Budding 2+ HPF (None Seen)
[2023-01-13 19:23] LABS: Urine Culture Reflex Yes Yes
[2023-01-13 19:33] LABS: Actual Bicarbonate (HCO3v) 27.5 mEq/L (22-28); Base Excess 1.8 mEq/L (-2.0 to +3.0); Chloride (VBG) 89 mmol/L (98-106); Hematocrit-VBG 57 % (42.0-52.0); Hemoglobin (Hb) 19.5 g/dL (13.1-17.2); Potassium (VBG) 4.38 mmol/L (3.70-5.30); Sodium 136 mmol/L (133-146); pH (venous) 7.395 (7.32-7.43)
[2023-01-13 21:48] LABS: Lactic Acid 1.6 mmol/L (0.5-2.2)
[2023-01-13] MEDS ORDERED: Ondansetron ODT 4 MG TAB PO PRN (22:08)
[2023-01-13] MEDS ORDERED: Acetaminophen 325 MG TAB PO PRN (22:08)
[2023-01-13] MEDS ORDERED: Calcium Carbonate 500 MG ChewTAB PO PRN (22:08)
[2023-01-13] MEDS ORDERED: Senokot S 8.6-50 MG TAB PO PRN (22:08)
[2023-01-13] MEDS ORDERED: Dextrose 5% in Water 1,000 ML IV PRN (22:10)
[2023-01-13] MEDS ORDERED: HumaLOG 300 UNITS/3 ML VIAL SC PRN (22:10)
[2023-01-13] MEDS ORDERED: Glucagon 1 MG/ML KIT IM PRN (22:10)
[2023-01-13] MEDS ORDERED: Dextrose 50% Abboject 50 ML SYRINGE SLOW IVP PRN (22:10)
[2023-01-13] MEDS ORDERED: Electrolyte Replacement Protocol 1 EACH FS SCH (23:45)
[2023-01-13] MEDS ORDERED: Sodium Chloride 0.9% 1,000 ML IV SCH (23:59)
[2023-01-14 00:25] VITALS: BMI 16.4
[2023-01-14] MEDS ORDERED: Magnesium 2 GM/50 ML(in water) 2 GM in Premix Bag 1 BAG IVPB SCH (02:00)
[2023-01-14 03:46] LABS: #Basophils 0.1 thou/uL (0.0-0.2); #Eosinphils 0.3 thou/uL (0.0-0.7); #Monocytes 1.2 thou/uL (0.11-0.59); %Basophils 0.5 % (0.0-1.0); %Eosinophils 1.7 % (0.0-10.0); %Monocytes 7.8 % (0.0-10.0); %Neutrophils 66.7 % (42.0-75.0); Mean Corpuscular HGB CONC 33.6 g/dL (32.0-36.0); Mean Corpuscular Hemoglobin 30.1 pg (27.0-31.0); Mean Corpuscular Volume 89.4 fl (78.0-98.0); Mean Platelet Volume 10.3 fL (7.4-10.4); Platelet Count 275 10x3/uL (130-400); RBC Distribution Width 12.6 % (11.5-14.5); Red Blood Cell (RBC) Count 4.89 mill/uL (4.70-6.10); White Blood Cell (WBC) Count 15.1 10x3/uL (4.8-10.8)
[2023-01-14 04:01] LABS: Hematocrit 43.7 % (42.0-52.0); Hemoglobin 14.7 g/dL (14.0-18.0)
[2023-01-14 04:25] LABS: Anion Gap 13 mmol/L (10-20); BUN (Urea Nitrogen) 14 mg/dL (8.4-25.7); Calc. Creatinine Clearance 76 mL/min (70-130); Calcium 9.1 mg/dL (7.8-10.44); Carbon Dioxide 27 mmol/L (23-31); Chloride 100 mmol/L (98-107); Estimated GFR 100; Glucose 255 mg/dL (80-115); Potassium 3.7 mmol/L (3.5-5.1); Sodium 136 mmol/L (136-145)
[2023-01-14] MEDS ORDERED: Cefepime 1 GM in Sodium Chloride 0.9% 100 ML IVPB SCH (06:00)
[2023-01-14] MEDS: HumaLOG 300 UNITS/3 ML VIAL SC PRN ×3 (06:27→17:43)
[2023-01-14] MEDS ORDERED: Mineral Oil ENEMA PR SCH (08:00)
[2023-01-14] MEDS: Multivitamin W/ Minerals 1 TAB PO SCH (08:53)
[2023-01-14] MEDS: Clopidogrel Bisulfate 75 MG TAB PO SCH (08:53)
[2023-01-14] MEDS: Empagliflozin 10 MG TAB PO SCH (08:53)
[2023-01-14] MEDS: Gabapentin 300 MG CAP PO SCH (08:53)
[2023-01-14] MEDS: Pantoprazole 40 MG VIAL IVP SCH (08:53)
[2023-01-14] MEDS: Aspirin Chewable 81 MG TAB PO SCH (08:53)
[2023-01-14] MEDS: Carvedilol 6.25 MG TAB PO SCH ×2 (08:54→16:58)
[2023-01-14] MEDS: levETIRAcetam 500 MG TAB PO SCH ×2 (08:54→20:59)
[2023-01-14] MEDS: Vancomycin HCl 750 MG in Sodium Chloride 0.9% 250 ML 250 ML IVPB SCH ×2 (08:57→20:59)
[2023-01-14] MEDS ORDERED: Vancomycin 1 GM in Premix Bag 1 BAG IVPB SCH (09:00)
[2023-01-14] MEDS ORDERED: Famotidine 20 MG TAB PO SCH (09:00)
[2023-01-14] MEDS ORDERED: Insulin Glargine 30 UNITS/0.3 ML VIAL SC SCH ×2 (09:00)
[2023-01-14] MEDS ORDERED: FLU VACC QS2023-24(6MOS UP)/PF 60 MCG/0.5 ML SYRINGE IM ONE (09:00)
[2023-01-14] MEDS ORDERED: Lisinopril 2.5 MG TAB PO SCH (09:00)
[2023-01-14] MEDS: Cefepime 2 GM in Sodium Chloride 0.9% 100 ML IVPB SCH (16:59)
[2023-01-14] MEDS: QUEtiapine 25 MG TAB PO SCH (20:59)
[2023-01-14] MEDS: Atorvastatin Calcium 40 MG TAB PO SCH (20:59)
[2023-01-15] MEDS: Cefepime 2 GM in Sodium Chloride 0.9% 100 ML IVPB SCH ×2 (05:46→17:49)
[2023-01-15 06:40] LABS: #Basophils 0.1 thou/uL (0.0-0.2); #Eosinphils 0.4 thou/uL (0.0-0.7); #Monocytes 0.8 thou/uL (0.11-0.59); #Neutrophils 6.2 thou/uL (1.40-6.50); %Basophils 0.6 % (0.0-1.0); %Eosinophils 3.8 % (0.0-10.0); %Lymphocytes 32.4 % (21.0-51.0); %Monocytes 6.9 % (0.0-10.0); %Neutrophils 56.1 % (42.0-75.0); Hematocrit 39.1 % (42.0-52.0); Mean Corpuscular HGB CONC 33.2 g/dL (32.0-36.0); Mean Corpuscular Hemoglobin 30.3 pg (27.0-31.0); Mean Corpuscular Volume 91.1 fl (78.0-98.0); Mean Platelet Volume 11.1 fL (7.4-10.4); Platelet Count 266 10x3/uL (130-400); RBC Distribution Width 12.7 % (11.5-14.5); Red Blood Cell (RBC) Count 4.29 mill/uL (4.70-6.10); White Blood Cell (WBC) Count 11.1 10x3/uL (4.8-10.8)
[2023-01-15 07:25] LABS: Vancomycin, Trough 7.5 ug/mL
[2023-01-15 07:45] LABS: Anion Gap 13 mmol/L (10-20); BUN (Urea Nitrogen) 13 mg/dL (8.4-25.7); Calc. Creatinine Clearance 81 mL/min (70-130); Calcium 9.1 mg/dL (7.8-10.44); Carbon Dioxide 26 mmol/L (23-31); Chloride 106 mmol/L (98-107); Estimated GFR 100; Glucose 118 mg/dL (80-115); Potassium 4.2 mmol/L (3.5-5.1); Sodium 141 mmol/L (136-145)
[2023-01-15] MEDS ORDERED: Insulin Glargine 30 UNITS/0.3 ML VIAL SC SCH ×2 (07:46→09:00)
[2023-01-15] MEDS ORDERED: Vancomycin 1 GM in Premix Bag 1 BAG IVPB SCH (08:00)
[2023-01-15] MEDS: Empagliflozin 10 MG TAB PO SCH (08:46)
[2023-01-15] MEDS: Carvedilol 6.25 MG TAB PO SCH ×2 (08:46→17:49)
[2023-01-15] MEDS: Gabapentin 300 MG CAP PO SCH (08:46)
[2023-01-15] MEDS: Aspirin Chewable 81 MG TAB PO SCH (08:46)
[2023-01-15] MEDS: levETIRAcetam 500 MG TAB PO SCH ×2 (08:46→21:07)
[2023-01-15] MEDS: Clopidogrel Bisulfate 75 MG TAB PO SCH (08:46)
[2023-01-15] MEDS: Multivitamin W/ Minerals 1 TAB PO SCH (08:47)
[2023-01-15] MEDS: Pantoprazole 40 MG VIAL IVP SCH (08:47)
[2023-01-15] MEDS: HumaLOG 300 UNITS/3 ML VIAL SC PRN (13:22)
[2023-01-15] MEDS: QUEtiapine 25 MG TAB PO SCH (21:07)
[2023-01-15] MEDS: Atorvastatin Calcium 40 MG TAB PO SCH (21:07)
[2023-01-16 04:28] LABS: #Basophils 0.1 thou/uL (0.0-0.2); #Eosinphils 0.4 thou/uL (0.0-0.7); #Monocytes 0.6 thou/uL (0.11-0.59); #Neutrophils 4.3 thou/uL (1.40-6.50); %Basophils 0.9 % (0.0-1.0); %Lymphocytes 38.9 % (21.0-51.0); %Monocytes 6.9 % (0.0-10.0); %Neutrophils 48.2 % (42.0-75.0); Hematocrit 40.4 % (42.0-52.0); Hemoglobin 13.3 g/dL (14.0-18.0); Mean Corpuscular HGB CONC 32.9 g/dL (32.0-36.0); Mean Corpuscular Hemoglobin 29.9 pg (27.0-31.0); Mean Corpuscular Volume 90.8 fl (78.0-98.0); Mean Platelet Volume 10.6 fL (7.4-10.4); Platelet Count 239 10x3/uL (130-400); RBC Distribution Width 12.6 % (11.5-14.5); Red Blood Cell (RBC) Count 4.45 mill/uL (4.70-6.10); White Blood Cell (WBC) Count 8.9 10x3/uL (4.8-10.8)
[2023-01-16 05:01] LABS: Anion Gap 13 mmol/L (10-20); BUN (Urea Nitrogen) 13 mg/dL (8.4-25.7); Calc. Creatinine Clearance 91 mL/min (70-130); Calcium 9.2 mg/dL (7.8-10.44); Carbon Dioxide 25 mmol/L (23-31); Chloride 105 mmol/L (98-107); Estimated GFR 104; Glucose 109 mg/dL (80-115); Potassium 3.6 mmol/L (3.5-5.1); Sodium 139 mmol/L (136-145)
[2023-01-16] MEDS: Cefepime 2 GM in Sodium Chloride 0.9% 100 ML IVPB SCH ×2 (05:36→17:23)
[2023-01-16] MEDS: Aspirin Chewable 81 MG TAB PO SCH (09:29)
[2023-01-16] MEDS: Empagliflozin 10 MG TAB PO SCH (09:29)
[2023-01-16] MEDS: Carvedilol 6.25 MG TAB PO SCH ×2 (09:29→17:23)
[2023-01-16] MEDS: Clopidogrel Bisulfate 75 MG TAB PO SCH (09:30)
[2023-01-16] MEDS: levETIRAcetam 500 MG TAB PO SCH ×2 (09:30→21:29)
[2023-01-16] MEDS: Multivitamin W/ Minerals 1 TAB PO SCH (09:30)
[2023-01-16] MEDS: Pantoprazole 40 MG VIAL IVP SCH (09:30)
[2023-01-16] MEDS: Gabapentin 300 MG CAP PO SCH (10:01)
[2023-01-16] MEDS ORDERED: Polyethylene Glycol 3350 17 GM Packet PO SCH (13:39)
[2023-01-16] MEDS ORDERED: Fluconazole 100 MG TAB PO SCH (15:00)
[2023-01-16] MEDS: HumaLOG 300 UNITS/3 ML VIAL SC PRN (17:48)
[2023-01-16] MEDS: Senokot S 8.6-50 MG TAB PO SCH (21:28)
[2023-01-16] MEDS: QUEtiapine 25 MG TAB PO SCH (21:29)
[2023-01-16] MEDS: Atorvastatin Calcium 40 MG TAB PO SCH (21:29)
[2023-01-17] MEDS: Cefepime 2 GM in Sodium Chloride 0.9% 100 ML IVPB SCH (06:01)
[2023-01-17 08:21] LABS: #Basophils 0.1 thou/uL (0.0-0.2); #Eosinphils 0.4 thou/uL (0.0-0.7); #Monocytes 0.7 thou/uL (0.11-0.59); #Neutrophils 5.7 thou/uL (1.40-6.50); %Basophils 0.5 % (0.0-1.0); %Eosinophils 4.1 % (0.0-10.0); %Monocytes 6.6 % (0.0-10.0); %Neutrophils 57.5 % (42.0-75.0); Hematocrit 39.7 % (42.0-52.0); Hemoglobin 13.3 g/dL (14.0-18.0); Mean Corpuscular HGB CONC 33.5 g/dL (32.0-36.0); Mean Corpuscular Hemoglobin 30.6 pg (27.0-31.0); Mean Corpuscular Volume 91.5 fl (78.0-98.0); Platelet Count 226 10x3/uL (130-400); RBC Distribution Width 12.6 % (11.5-14.5); Red Blood Cell (RBC) Count 4.34 mill/uL (4.70-6.10)
[2023-01-17] MEDS: Pantoprazole 40 MG VIAL IVP SCH (08:42)
[2023-01-17] MEDS: Carvedilol 6.25 MG TAB PO SCH (08:43)
[2023-01-17] MEDS: Clopidogrel Bisulfate 75 MG TAB PO SCH (08:44)
[2023-01-17] MEDS: Gabapentin 300 MG CAP PO SCH (08:44)
[2023-01-17] MEDS: Aspirin Chewable 81 MG TAB PO SCH (08:44)
[2023-01-17] MEDS: Empagliflozin 10 MG TAB PO SCH (08:44)
[2023-01-17] MEDS: levETIRAcetam 500 MG TAB PO SCH (08:45)
[2023-01-17] MEDS: Multivitamin W/ Minerals 1 TAB PO SCH (08:45)
[2023-01-17] MEDS: Senokot S 8.6-50 MG TAB PO SCH (08:46)
[2023-01-17 08:58] LABS: Anion Gap 14 mmol/L (10-20); BUN (Urea Nitrogen) 19 mg/dL (8.4-25.7); Calc. Creatinine Clearance 85 mL/min (70-130); Calcium 9.1 mg/dL (7.8-10.44); Carbon Dioxide 24 mmol/L (23-31); Chloride 104 mmol/L (98-107); Estimated GFR 102; Glucose 114 mg/dL (80-115); Potassium 4.5 mmol/L (3.5-5.1); Sodium 137 mmol/L (136-145)
[2023-01-17] MEDS ORDERED: Polyethylene Glycol 3350 17 GM Packet PO SCH (09:00)
[2023-01-17 15:29] VITALS: BP 117/69; TEMP 98
== END 2023-01-17 19:30 | disposition home or self-care (01) | DRG 871 ==
LOC: ERS 17:49 → IMCU/EMU 21:35 → 2NO 01-15 20:03
PROVIDERS: ADMIT Student in an Organized Health Care Education/Training Program; ATTEND Internal Medicine
DX: A41.9 Sepsis, unspecified organism (principal); E43 Unspecified severe protein-calorie malnutrition; N17.9 Acute kidney failure, unspecified; E87.20 Acidosis, unspecified; I50.22 Chronic systolic (congestive) heart failure; Z68.1 Body mass index [BMI] 19.9 or less, adult; N30.90 Cystitis, unspecified without hematuria; E11.65 Type 2 diabetes mellitus with hyperglycemia; I25.10 Atherosclerotic heart disease of native coronary artery without angina pectoris; G40.909 Epilepsy, unspecified, not intractable, without status epilepticus; E11.51 Type 2 diabetes mellitus with diabetic peripheral angiopathy without gangrene; I11.0 Hypertensive heart disease with heart failure; K20.90 Esophagitis, unspecified without bleeding; F17.210 Nicotine dependence, cigarettes, uncomplicated; Z83.3 Family history of diabetes mellitus; Z82.49 Family history of ischemic heart disease and other diseases of the circulatory system; Z86.73 Personal history of transient ischemic attack (TIA), and cerebral infarction without residual deficits; Z98.890 Other specified postprocedural states; Z79.82 Long term (current) use of aspirin; Z79.899 Other long term (current) drug therapy; Z79.4 Long term (current) use of insulin; Z89.512 Acquired absence of left leg below knee
CPT/HCPCS: 36415; 36416; 71045; 74018; 74177; 80048; 80053; 80202; 81001; 82274; 82805; 83605; 84145; 84484; 85025; 87040; 87086; 93005; 96365; 96366; 96367; C9113; J0692; J1650; J1815; J3370; J3370-JW; J3490; J7050; Q9967

== ENCOUNTER 2023-01-30 22:02 | Emergency (ER) | payer OTHER, SELFPAY ==
[2023-01-30 22:44] LABS: #Basophils 0.1 thou/uL (0.0-0.2); #Eosinphils 0.3 thou/uL (0.0-0.7); #Monocytes 0.7 thou/uL (0.11-0.59); %Basophils 0.7 % (0.0-1.0); %Eosinophils 2.8 % (0.0-10.0); %Monocytes 6.8 % (0.0-10.0); %Neutrophils 55.4 % (42.0-75.0); Hematocrit 41.6 % (42.0-52.0); Hemoglobin 14.2 g/dL (14.0-18.0); Mean Corpuscular HGB CONC 34.1 g/dL (32.0-36.0); Mean Corpuscular Hemoglobin 30.3 pg (27.0-31.0); Mean Corpuscular Volume 88.9 fl (78.0-98.0); Mean Platelet Volume 10.7 fL (7.4-10.4); Platelet Count 224 10x3/uL (130-400); Red Blood Cell (RBC) Count 4.68 mill/uL (4.70-6.10); White Blood Cell (WBC) Count 10.9 10x3/uL (4.8-10.8)
[2023-01-30 22:47] LABS: Actual Bicarbonate (HCO3v) 23.8 mEq/L (22-28); Analyzer IN Cardio ER; Base Excess 0.4 mEq/L (-2.0 to +3.0); Chloride (VBG) 99 mmol/L (98-106); Hematocrit-VBG 44 % (42.0-52.0); Hemoglobin (Hb) 15.1 g/dL (13.1-17.2); Potassium (VBG) 3.93 mmol/L (3.70-5.30); Sodium 134 mmol/L (133-146); pH (venous) 7.453 (7.32-7.43)
[2023-01-30 23:11] LABS: Troponin I 0.017 ng/mL (< 0.028)
[2023-01-30 23:13] LABS: ALT (SGPT) 22 U/L (8-55); AST (SGOT) 17 U/L (5-34); Albumin 3.6 g/dL (3.4-4.8); Alkaline Phosphatase 123 U/L (40-110); Anion Gap 15 mmol/L (10-20); BUN (Urea Nitrogen) 17 mg/dL (8.4-25.7); Bilirubin, Total 0.3 mg/dL (0.2-1.2); Calc. Creatinine Clearance 0 mL/min (70-130); Calcium 8.7 mg/dL (7.8-10.44); Carbon Dioxide 24 mmol/L (23-31); Chloride 101 mmol/L (98-107); Estimated GFR 70; Globulin 2.6 g/dL (2.4-3.5); Potassium 4.1 mmol/L (3.5-5.1); Protein, Total 6.2 g/dL (5.8-8.1); Sodium 136 mmol/L (136-145)
[2023-01-30 23:15] LABS: Glucose 437 mg/dL (80-115)
[2023-01-31 00:13] LABS: Acetaminophen Less than 10 mcg/mL (10.0-30.0); Alcohol Less than 10.0 mg/dL (Less than 10); Salicylate Less than 8.0 mg/dL (15.0-30.0)
[2023-01-31 01:16] LABS: Amphetamine Not Detected (NotDetected); Barbiturates Screen Not Detected (NotDetected); Benzodiazepine Screen Not Detected (NotDetected); Cocaine Metabolite Screen Not Detected (NotDetected); Methadone Not Detected (NotDetected); Methamphetamine Not Detected (NotDetected); Opiate Screen Not Detected (NotDetected); Oxycodone Screen Not Detected (NotDetected); Phencyclidine (PCP) Not Detected (NotDetected); THC/Cannabinoid Screen Not Detected (NotDetected); Tricyclic Screen Not Detected (NotDetected)
[2023-01-31 01:23] LABS: Bacteria/HPF None Seen HPF (None Seen); Bilirubin Negative (Negative); Blood, Urine 1+ (Negative); CAUTI Indications for Culture Dysuria,urgency,freq; Clarity Turbid (Clear); Glucose, Urine (Dipstick) Greater than 1000 mg/dL (Negative); Ketone, Urine Trace mg/dL (Negative); Leukocyte 500 Leu/uL (Negative); Nitrite Negative (Negative); Protein, Urine (Dipstick) 50 mg/dL (Neg-Trace); RBC/HPF 21-50 HPF (0-3); Specific Gravity, Urine 1.038 (1.002-1.036); Squamous Epithelial None Seen HPF (0-3); Urobilinogen Normal mg/dL (Less than 2); WBC/HPF Greater than 50 HPF (0-3); Yeast-Budding 3+ HPF (None Seen)
[2023-01-31 01:25] LABS: Urine Culture Reflex Yes Yes
[2023-01-31] MEDS ORDERED: cefTRIAXone (ROCEPHIN) 1 GM VIAL ONE (03:58)
[2023-01-31] MEDS ORDERED: Iopamidol-370 76% 500 ML MDV (1 ML CHARGE) ONE (09:21)
[2023-01-31 12:29] LABS: Chlam.trachomatis by PCR,Urine Not Detected (NotDetected); GC N.gonorrhoeae PCR,UrineVOID Not Detected (NotDetected)
== END 2023-01-31 13:55 | disposition home or self-care (01) ==
LOC: ERS 22:02
DX: N39.0 Urinary tract infection, site not specified (principal); R00.0 Tachycardia, unspecified; E11.9 Type 2 diabetes mellitus without complications; I10 Essential (primary) hypertension; Z79.4 Long term (current) use of insulin; Z79.899 Other long term (current) drug therapy; Z79.82 Long term (current) use of aspirin
CPT/HCPCS: 36415; 71045; 71275; 80053; 80306; 80307; 81001; 82010; 82805; 83605; 84484; 85025; 87040; 87077; 87086; 87149; 87491; 87591; 93005; 96361; 96365; J0696; Q9967

== ENCOUNTER 2023-03-30 15:25 | Emergency (ER) | payer OTHER ==
[2023-03-30 16:40] LABS: #Basophils 0.1 thou/uL (0.0-0.2); #Eosinphils 0.2 thou/uL (0.0-0.7); #Monocytes 0.7 thou/uL (0.11-0.59); #Neutrophils 5.8 thou/uL (1.40-6.50); %Basophils 0.8 % (0.0-1.0); %Eosinophils 2.2 % (0.0-10.0); %Lymphocytes 35.5 % (21.0-51.0); %Monocytes 6.6 % (0.0-10.0); %Neutrophils 54.7 % (42.0-75.0); Hemoglobin 14.9 g/dL (14.0-18.0); Mean Corpuscular HGB CONC 34.7 g/dL (32.0-36.0); Mean Corpuscular Hemoglobin 31.1 pg (27.0-31.0); Mean Corpuscular Volume 89.8 fl (78.0-98.0); Mean Platelet Volume 10.6 fL (7.4-10.4); Platelet Count 250 10x3/uL (130-400); RBC Distribution Width 13.1 % (11.5-14.5); Red Blood Cell (RBC) Count 4.79 mill/uL (4.70-6.10); White Blood Cell (WBC) Count 10.6 10x3/uL (4.8-10.8)
[2023-03-30 17:04] LABS: ALT (SGPT) 11 U/L (8-55); AST (SGOT) 14 U/L (5-34); Albumin 3.4 g/dL (3.4-4.8); Alkaline Phosphatase 156 U/L (40-110); Anion Gap 15 mmol/L (10-20); BUN (Urea Nitrogen) 19 mg/dL (8.4-25.7); Bilirubin, Total 0.2 mg/dL (0.2-1.2); Calc. Creatinine Clearance 0 mL/min (70-130); Calcium 8.7 mg/dL (7.8-10.44); Carbon Dioxide 23 mmol/L (23-31); Chloride 97 mmol/L (98-107); Estimated GFR 101; Globulin 3.9 g/dL (2.4-3.5); Potassium 4.6 mmol/L (3.5-5.1); Protein, Total 7.3 g/dL (5.8-8.1); Sodium 130 mmol/L (136-145)
[2023-03-30 17:16] LABS: Glucose 439 mg/dL (80-115)
[2023-03-30] MEDS ORDERED: Insulin Regular 300 UNITS/3 ML VIAL ONE (17:41)
[2023-03-30 17:44] LABS: Actual Bicarbonate (HCO3v) 24.4 mEq/L (22-28); Base Excess -0.3 mEq/L (-2.0 to +3.0); Calcium, Ionized (venous) 1.11 mmol/L (1.16-1.32); Chloride (VBG) 95 mmol/L (98-106); Hematocrit-VBG 46 % (42.0-52.0); Hemoglobin (Hb) 15.7 g/dL (13.1-17.2); Potassium (VBG) 4.39 mmol/L (3.70-5.30); Sodium 132 mmol/L (133-146); pH (venous) 7.402 (7.32-7.43)
[2023-03-30 19:33] LABS: Bilirubin Negative (Negative); Blood, Urine 1+ (Negative); CAUTI Indications for Culture Dysuria,urgency,freq; Clarity Turbid (Clear); Glucose, Urine (Dipstick) Greater than 1000 mg/dL (Negative); Ketone, Urine 20 mg/dL (Negative); Leukocyte 500 Leu/uL (Negative); Nitrite Negative (Negative); Protein, Urine (Dipstick) 20 mg/dL (Neg-Trace); RBC/HPF 0-3 HPF (0-3); Specific Gravity, Urine 1.031 (1.002-1.036); Squamous Epithelial 0-3 HPF (0-3); Urobilinogen Normal mg/dL (Less than 2); WBC/HPF Greater than 50 HPF (0-3); Yeast-Budding 2+ HPF (None Seen)
[2023-03-30 19:39] LABS: Bacteria/HPF 1+ HPF (None Seen)
[2023-03-30 19:40] LABS: Calcium Oxalate Crystals 1+ HPF (None Seen)
[2023-03-30 19:42] LABS: Urine Culture Reflex Yes Yes
== END 2023-03-30 20:25 | disposition home or self-care (01) ==
LOC: ERS 15:25
DX: E11.65 Type 2 diabetes mellitus with hyperglycemia (principal); R30.0 Dysuria; I10 Essential (primary) hypertension; F17.210 Nicotine dependence, cigarettes, uncomplicated; Z89.512 Acquired absence of left leg below knee; Z86.73 Personal history of transient ischemic attack (TIA), and cerebral infarction without residual deficits; Z79.82 Long term (current) use of aspirin; Z79.4 Long term (current) use of insulin; Z79.899 Other long term (current) drug therapy
CPT/HCPCS: 36416; 71045; 80053; 81001; 82805; 85025; 87086; 96360; J1815

== ENCOUNTER 2023-04-21 20:27 | Inpatient (IN) | payer OTHER, SELFPAY ==
[~2023-04-21 20:27] MED LIST changes: +Iopamidol 370 76% 100 ML VIAL ONE; -Iopamidol-370 76% 500 ML MDV (1 ML CHARGE) ONE
[2023-04-21 21:18] LABS: #Basophils 0.1 thou/uL (0.0-0.2); #Eosinphils 0.3 thou/uL (0.0-0.7); #Monocytes 0.6 thou/uL (0.11-0.59); #Neutrophils 5.5 thou/uL (1.40-6.50); %Basophils 0.5 % (0.0-1.0); %Eosinophils 2.9 % (0.0-10.0); %Lymphocytes 33.1 % (21.0-51.0); %Monocytes 5.8 % (0.0-10.0); %Neutrophils 57.4 % (42.0-75.0); Hematocrit 47.5 % (42.0-52.0); Hemoglobin 15.9 g/dL (14.0-18.0); Mean Corpuscular HGB CONC 33.5 g/dL (32.0-36.0); Mean Corpuscular Hemoglobin 30.1 pg (27.0-31.0); Platelet Count 263 10x3/uL (130-400); RBC Distribution Width 12.9 % (11.5-14.5); Red Blood Cell (RBC) Count 5.28 mill/uL (4.70-6.10); White Blood Cell (WBC) Count 9.5 10x3/uL (4.8-10.8)
[2023-04-21 21:21] LABS: Actual Bicarbonate (HCO3v) 29.2 mEq/L (22-28); Base Excess 1.2 mEq/L (-2.0 to +3.0); Calcium, Ionized (venous) 1.19 mmol/L (1.16-1.32); Chloride (VBG) 90 mmol/L (98-106); Hematocrit-VBG 49 % (42.0-52.0); Hemoglobin (Hb) 16.6 g/dL (13.1-17.2); Potassium (VBG) 4.35 mmol/L (3.70-5.30); Sodium 133 mmol/L (133-146); pH (venous) 7.308 (7.32-7.43)
[2023-04-21 21:41] LABS: ALT (SGPT) 14 U/L (8-55); AST (SGOT) 13 U/L (5-34); Alkaline Phosphatase 175 U/L (40-110); Anion Gap 17 mmol/L (10-20); BUN (Urea Nitrogen) 13 mg/dL (8.4-25.7); Bilirubin, Total 0.4 mg/dL (0.2-1.2); Calc. Creatinine Clearance 0 mL/min (70-130); Calcium 9.3 mg/dL (7.8-10.44); Carbon Dioxide 27 mmol/L (23-31); Chloride 92 mmol/L (98-107); Estimated GFR 78; Globulin 3.3 g/dL (2.4-3.5); Magnesium 1.6 mg/dL (1.6-2.6); Potassium 4.5 mmol/L (3.5-5.1); Protein, Total 7.3 g/dL (5.8-8.1); Sodium 131 mmol/L (136-145)
[2023-04-21 21:43] LABS: Phosphorus 3.3 mg/dL (2.3-4.7)
[2023-04-21 21:58] LABS: Critical Call Chemistry NUR.NKE@2158; Glucose 740 mg/dL (80-115)
[2023-04-21 22:09] LABS: Troponin I Less than 0.010 ng/mL (< 0.028)
[2023-04-21] MEDS ORDERED: Ketorolac Tromethamine 30 MG (1 mL) VIAL ONE (22:27)
[2023-04-22] MEDS ORDERED: HumaLOG 300 UNITS/3 ML VIAL ONE (00:46)
[2023-04-22 01:24] LABS: Anion Gap 13 mmol/L (10-20); BUN (Urea Nitrogen) 11 mg/dL (8.4-25.7); Calc. Creatinine Clearance 0 mL/min (70-130); Calcium 8.7 mg/dL (7.8-10.44); Carbon Dioxide 24 mmol/L (23-31); Chloride 101 mmol/L (98-107); Estimated GFR 100; Potassium 3.8 mmol/L (3.5-5.1); Sodium 134 mmol/L (136-145)
[2023-04-22 01:27] LABS: Critical Call Chemistry NUR.NKE@0125; Glucose 551 mg/dL (80-115)
[2023-04-22] MEDS ORDERED: Dextrose 5% in Water 1,000 ML IV PRN (01:38)
[2023-04-22] MEDS ORDERED: Dextrose 50% Abboject 50 ML SYRINGE SLOW IVP PRN (01:38)
[2023-04-22] MEDS ORDERED: Acetaminophen 650 MG Suppository PR PRN (01:38)
[2023-04-22] MEDS ORDERED: Acetaminophen 325 MG TAB PO PRN (01:38)
[2023-04-22] MEDS ORDERED: Glucagon 1 MG/ML KIT IM PRN (01:38)
[2023-04-22] MEDS ORDERED: HumaLOG 300 UNITS/3 ML VIAL SC PRN (01:38)
[2023-04-22 02:53] VITALS: BMI 16.2
[2023-04-22 05:21] LABS: #Basophils 0.1 thou/uL (0.0-0.2); #Eosinphils 0.4 thou/uL (0.0-0.7); #Monocytes 0.9 thou/uL (0.11-0.59); #Neutrophils 6.4 thou/uL (1.40-6.50); %Basophils 0.5 % (0.0-1.0); %Eosinophils 3.2 % (0.0-10.0); %Lymphocytes 28.6 % (21.0-51.0); %Monocytes 8.3 % (0.0-10.0); Hematocrit 41.7 % (42.0-52.0); Hemoglobin 14.1 g/dL (14.0-18.0); Mean Corpuscular HGB CONC 33.8 g/dL (32.0-36.0); Mean Corpuscular Hemoglobin 30.1 pg (27.0-31.0); Mean Corpuscular Volume 88.9 fl (78.0-98.0); Mean Platelet Volume 11.1 fL (7.4-10.4); Platelet Count 216 10x3/uL (130-400); RBC Distribution Width 12.7 % (11.5-14.5); Red Blood Cell (RBC) Count 4.69 mill/uL (4.70-6.10); White Blood Cell (WBC) Count 10.9 10x3/uL (4.8-10.8)
[2023-04-22 06:30] LABS: Anion Gap 14 mmol/L (10-20); BUN (Urea Nitrogen) 9 mg/dL (8.4-25.7); Calc. Creatinine Clearance 90 mL/min (70-130); Calcium 8.6 mg/dL (7.8-10.44); Carbon Dioxide 21 mmol/L (23-31); Cardiac Risk 5.6 (Less than 4.5); Chloride 106 mmol/L (98-107); Cholesterol 173 mg/dl (< 200 Desired); Estimated GFR 106; Glucose 210 mg/dL (80-115); HDL Cholesterol 31 mg/dL (>60 Neg Risk); LDL Cholesterol, Calculated 109 mg/dL; Potassium 3.4 mmol/L (3.5-5.1); Sodium 138 mmol/L (136-145); Triglycerides 164 mg/dL (Less than 150)
[2023-04-22] MEDS ORDERED: Electrolyte Replacement Protocol 1 EACH FS SCH (07:15)
[2023-04-22] MEDS ORDERED: Electrolyte Replacement Protocol FS PRN (07:30)
[2023-04-22] MEDS ORDERED: Potassium Chloride 20 MEQ TAB PO SCH (08:00)
[2023-04-22] MEDS: levETIRAcetam 500 MG TAB PO SCH ×2 (08:56→21:24)
[2023-04-22] MEDS ORDERED: Insulin Glargine 30 UNITS/0.3 ML VIAL SC SCH (09:00)
[2023-04-22] MEDS ORDERED: Aspirin 81 mg Enteric Coated Tablet PO SCH (10:30)
[2023-04-22] MEDS ORDERED: Clopidogrel Bisulfate 75 MG TAB PO SCH (10:30)
[2023-04-22 14:15] LABS: Potassium 4.3 mmol/L (3.5-5.1)
[2023-04-22] MEDS: HumaLOG 300 UNITS/3 ML VIAL SC PRN ×2 (14:34→18:33)
[2023-04-22] MEDS ORDERED: Atorvastatin Calcium 40 MG TAB PO SCH (21:00)
[2023-04-22] MEDS: QUEtiapine 25 MG TAB PO SCH (21:24)
[2023-04-22] MEDS: Insulin Glargine 30 UNITS/0.3 ML VIAL SC SCH (21:25)
[2023-04-22] MEDS: Atorvastatin Calcium 40 MG TAB PO SCH (21:25)
[2023-04-23 05:10] LABS: #Basophils 0.1 thou/uL (0.0-0.2); #Eosinphils 0.4 thou/uL (0.0-0.7); #Monocytes 0.7 thou/uL (0.11-0.59); #Neutrophils 4.2 thou/uL (1.40-6.50); %Basophils 0.7 % (0.0-1.0); %Lymphocytes 40.8 % (21.0-51.0); %Monocytes 7.8 % (0.0-10.0); %Neutrophils 46.5 % (42.0-75.0); Hematocrit 42.9 % (42.0-52.0); Hemoglobin 14.4 g/dL (14.0-18.0); Mean Corpuscular HGB CONC 33.6 g/dL (32.0-36.0); Mean Corpuscular Volume 89.4 fl (78.0-98.0); Mean Platelet Volume 10.5 fL (7.4-10.4); Platelet Count 233 10x3/uL (130-400); RBC Distribution Width 12.9 % (11.5-14.5); White Blood Cell (WBC) Count 8.9 10x3/uL (4.8-10.8)
[2023-04-23 05:31] LABS: Anion Gap 11 mmol/L (10-20); BUN (Urea Nitrogen) 10 mg/dL (8.4-25.7); Calc. Creatinine Clearance 92 mL/min (70-130); Carbon Dioxide 26 mmol/L (23-31); Chloride 106 mmol/L (98-107); Estimated GFR 106; Glucose 155 mg/dL (80-115); Potassium 3.7 mmol/L (3.5-5.1); Sodium 139 mmol/L (136-145)
[2023-04-23] MEDS: Insulin Glargine 30 UNITS/0.3 ML VIAL SC SCH ×2 (09:00→21:33)
[2023-04-23] MEDS: levETIRAcetam 500 MG TAB PO SCH ×2 (09:02→21:34)
[2023-04-23] MEDS: Aspirin 81 mg Enteric Coated Tablet PO SCH (09:02)
[2023-04-23] MEDS: Clopidogrel Bisulfate 75 MG TAB PO SCH (09:02)
[2023-04-23] MEDS: HumaLOG 300 UNITS/3 ML VIAL SC PRN (13:08)
[2023-04-23] MEDS: Carvedilol 3.125 MG TAB PO SCH (16:58)
[2023-04-23] MEDS: Atorvastatin Calcium 40 MG TAB PO SCH (21:33)
[2023-04-23] MEDS: QUEtiapine 25 MG TAB PO SCH (21:34)
[2023-04-24] MEDS ORDERED: Carvedilol 6.25 MG TAB PO SCH ×2 (08:45→17:00)
[2023-04-24] MEDS: Carvedilol 3.125 MG TAB PO SCH (09:13)
[2023-04-24] MEDS: levETIRAcetam 500 MG TAB PO SCH ×2 (09:15→21:59)
[2023-04-24] MEDS: Insulin Glargine 30 UNITS/0.3 ML VIAL SC SCH ×2 (09:15→21:59)
[2023-04-24] MEDS: Aspirin 81 mg Enteric Coated Tablet PO SCH (09:15)
[2023-04-24] MEDS: Clopidogrel Bisulfate 75 MG TAB PO SCH (09:15)
[2023-04-24] MEDS: HumaLOG 300 UNITS/3 ML VIAL SC PRN ×2 (14:11→17:27)
[2023-04-24] MEDS: Atorvastatin Calcium 40 MG TAB PO SCH (21:59)
[2023-04-24] MEDS: QUEtiapine 25 MG TAB PO SCH (21:59)
[2023-04-25 04:11] VITALS: BP 126/78; TEMP 98.1
[2023-04-25] MEDS: HumaLOG 300 UNITS/3 ML VIAL SC PRN (06:47)
== END 2023-04-25 11:00 | disposition home or self-care (01) | DRG 64 ==
LOC: ERS 20:27 → 2SE 23:20 → OBSVTOIN 04-22 10:15
PROVIDERS: ADMIT Student in an Organized Health Care Education/Training Program; ATTEND Student in an Organized Health Care Education/Training Program
PROC: 4A00X4Z Measurement of Central Nervous Electrical Activity, External Approach (ICD-10-PCS; principal; 2023-04-22)
DX: I63.9 Cerebral infarction, unspecified (principal); E11.00 Type 2 diabetes mellitus with hyperosmolarity without nonketotic hyperglycemic-hyperosmolar coma (NKHHC); G93.41 Metabolic encephalopathy; E87.1 Hypo-osmolality and hyponatremia; I69.352 Hemiplegia and hemiparesis following cerebral infarction affecting left dominant side; I42.9 Cardiomyopathy, unspecified; I50.22 Chronic systolic (congestive) heart failure; G81.91 Hemiplegia, unspecified affecting right dominant side; G40.909 Epilepsy, unspecified, not intractable, without status epilepticus; E11.65 Type 2 diabetes mellitus with hyperglycemia; K21.9 Gastro-esophageal reflux disease without esophagitis; I25.10 Atherosclerotic heart disease of native coronary artery without angina pectoris; R47.81 Slurred speech; I34.0 Nonrheumatic mitral (valve) insufficiency; I11.0 Hypertensive heart disease with heart failure; I25.2 Old myocardial infarction; Z79.899 Other long term (current) drug therapy; Z79.82 Long term (current) use of aspirin; Z79.4 Long term (current) use of insulin; Z79.84 Long term (current) use of oral hypoglycemic drugs; Z98.890 Other specified postprocedural states; Z89.512 Acquired absence of left leg below knee
CPT/HCPCS: 36415; 36416; 70450; 70496; 70498; 70551; 71045; 80048; 80053; 80061; 82010; 82805; 83605; 83735; 84100; 84484; 85025; 93005; 93306; 95711; 95819; 96360; 96361; G0378; J1815; J1885; Q9967

== ENCOUNTER 2023-04-25 15:23 | Emergency (ER) | payer SELFPAY ==
[2023-04-25 16:49] LABS: #Eosinphils 0.3 thou/uL (0.0-0.7); #Monocytes 0.6 thou/uL (0.11-0.59); #Neutrophils 5.7 thou/uL (1.40-6.50); %Basophils 0.3 % (0.0-1.0); %Eosinophils 2.8 % (0.0-10.0); %Monocytes 6.8 % (0.0-10.0); %Neutrophils 61.8 % (42.0-75.0); Hematocrit 39.9 % (42.0-52.0); Hemoglobin 13.2 g/dL (14.0-18.0); Mean Corpuscular HGB CONC 33.1 g/dL (32.0-36.0); Mean Corpuscular Hemoglobin 30.5 pg (27.0-31.0); Mean Corpuscular Volume 92.1 fl (78.0-98.0); Platelet Count 220 10x3/uL (130-400); RBC Distribution Width 13.2 % (11.5-14.5); Red Blood Cell (RBC) Count 4.33 mill/uL (4.70-6.10); White Blood Cell (WBC) Count 9.2 10x3/uL (4.8-10.8)
[2023-04-25 18:12] LABS: Bilirubin Negative (Negative); Blood, Urine Trace (Negative); CAUTI Indications for Culture Fever or rigors; Clarity Clear (Clear); Glucose, Urine (Dipstick) Greater than 1000 mg/dL (Negative); Ketone, Urine Negative (Negative); Leukocyte 500 Leu/uL (Negative); Nitrite Negative (Negative); Protein, Urine (Dipstick) Negative (Neg-Trace); Specific Gravity, Urine 1.031 (1.002-1.036); Squamous Epithelial 0-3 HPF (0-3); Urobilinogen Normal mg/dL (Less than 2); WBC/HPF Greater than 50 HPF (0-3); Yeast-Budding 2+ HPF (None Seen); pH, Urine 5.5 (5.0-9.0)
[2023-04-25 18:12] LABS: ALT (SGPT) 12 U/L (8-55); AST (SGOT) 13 U/L (5-34); Albumin 3.1 g/dL (3.4-4.8); Alkaline Phosphatase 108 U/L (40-110); Anion Gap 13 mmol/L (10-20); BUN (Urea Nitrogen) 18 mg/dL (8.4-25.7); Bilirubin, Total 0.2 mg/dL (0.2-1.2); Calc. Creatinine Clearance 0 mL/min (70-130); Calcium 8.6 mg/dL (7.8-10.44); Carbon Dioxide 24 mmol/L (23-31); Chloride 99 mmol/L (98-107); Estimated GFR 88; Globulin 2.8 g/dL (2.4-3.5); Potassium 4.3 mmol/L (3.5-5.1); Protein, Total 5.9 g/dL (5.8-8.1); Sodium 132 mmol/L (136-145)
[2023-04-25 18:13] LABS: Troponin I Less than 0.010 ng/mL (< 0.028)
[2023-04-25 18:14] LABS: Critical Call Chemistry NUR.CJM1@1813; Glucose 640 mg/dL (80-115)
[2023-04-25 18:17] LABS: Amphetamine Not Detected (NotDetected); Barbiturates Screen Not Detected (NotDetected); Benzodiazepine Screen Not Detected (NotDetected); Cocaine Metabolite Screen Not Detected (NotDetected); Methadone Not Detected (NotDetected); Methamphetamine Not Detected (NotDetected); Opiate Screen Not Detected (NotDetected); Oxycodone Screen Not Detected (NotDetected); Phencyclidine (PCP) Not Detected (NotDetected); THC/Cannabinoid Screen Not Detected (NotDetected); Tricyclic Screen Not Detected (NotDetected)
[2023-04-25 18:20] LABS: Bacteria/HPF 1+ HPF (None Seen)
[2023-04-25 18:22] LABS: Urine Culture Reflex Yes Yes
[2023-04-25] MEDS ORDERED: Insulin Regular 300 UNITS/3 ML VIAL ONE (19:16)
== END 2023-04-25 22:10 | disposition home or self-care (01) ==
LOC: ERS 15:23
DX: N39.0 Urinary tract infection, site not specified (principal); E11.65 Type 2 diabetes mellitus with hyperglycemia; R07.9 Chest pain, unspecified; F17.210 Nicotine dependence, cigarettes, uncomplicated
CPT/HCPCS: 36415; 71045; 80053; 80306; 81001; 84484; 85025; 87086; 93005; 96374; J1815

== ENCOUNTER 2023-05-05 20:20 | Emergency (ER) | payer OTHER, SELFPAY ==
[2023-05-05 20:52] LABS: #Basophils 0.1 thou/uL (0.0-0.2); #Eosinphils 0.3 thou/uL (0.0-0.7); #Monocytes 0.7 thou/uL (0.11-0.59); #Neutrophils 5.8 thou/uL (1.40-6.50); %Basophils 0.6 % (0.0-1.0); %Eosinophils 2.7 % (0.0-10.0); %Lymphocytes 33.5 % (21.0-51.0); %Monocytes 6.5 % (0.0-10.0); %Neutrophils 56.4 % (42.0-75.0); Hematocrit 43.3 % (42.0-52.0); Hemoglobin 14.4 g/dL (14.0-18.0); Mean Corpuscular HGB CONC 33.3 g/dL (32.0-36.0); Mean Corpuscular Hemoglobin 30.1 pg (27.0-31.0); Mean Corpuscular Volume 90.4 fl (78.0-98.0); Mean Platelet Volume 10.8 fL (7.4-10.4); Platelet Count 251 10x3/uL (130-400); RBC Distribution Width 12.5 % (11.5-14.5); Red Blood Cell (RBC) Count 4.79 mill/uL (4.70-6.10); White Blood Cell (WBC) Count 10.3 10x3/uL (4.8-10.8)
[2023-05-05 21:20] LABS: ALT (SGPT) 17 U/L (8-55); AST (SGOT) 18 U/L (5-34); Albumin 3.7 g/dL (3.4-4.8); Alkaline Phosphatase 160 U/L (40-110); Anion Gap 14 mmol/L (10-20); BUN (Urea Nitrogen) 9 mg/dL (8.4-25.7); Bilirubin, Total 0.3 mg/dL (0.2-1.2); Calc. Creatinine Clearance 0 mL/min (70-130); Calcium 8.7 mg/dL (7.8-10.44); Carbon Dioxide 22 mmol/L (23-31); Chloride 98 mmol/L (98-107); Estimated GFR 84; Globulin 3.1 g/dL (2.4-3.5); Potassium 4.3 mmol/L (3.5-5.1); Protein, Total 6.8 g/dL (5.8-8.1); Sodium 130 mmol/L (136-145)
[2023-05-05 21:35] LABS: Critical Call Chemistry NUR.MVB@2135; Glucose 560 mg/dL (80-115)
[2023-05-05 21:49] LABS: Magnesium 1.6 mg/dL (1.6-2.6)
[2023-05-05 21:55] LABS: Actual Bicarbonate (HCO3v) 22.5 mEq/L (22-28); Base Excess -1.3 mEq/L (-2.0 to +3.0); Calcium, Ionized (venous) 1.13 mmol/L (1.16-1.32); Chloride (VBG) 98 mmol/L (98-106); Hematocrit-VBG 42 % (42.0-52.0); Hemoglobin (Hb) 14.4 g/dL (13.1-17.2); Potassium (VBG) 3.97 mmol/L (3.70-5.30); Sodium 132 mmol/L (133-146); pH (venous) 7.424 (7.32-7.43)
[2023-05-05 21:55] LABS: Troponin I Less than 0.010 ng/mL (< 0.028)
[2023-05-05] MEDS ORDERED: Insulin Regular 300 UNITS/3 ML VIAL ONE (22:44)
[2023-05-05 23:38] LABS: Bilirubin Negative (Negative); Blood, Urine Large (Negative); Clarity Extra Turbid (Clear); Glucose, Urine (Dipstick) 250 mg/dL (Negative); Ketone, Urine Negative (Negative); Leukocyte Trace (Negative); Nitrite Negative (Negative); Protein, Urine (Dipstick) 100 mg/dL (Neg-Trace); Urobilinogen 0.2 mg/dL (Less than 2); pH, Urine 6.5 (5.0-9.0)
[2023-05-05 23:41] LABS: CAUTI Indications for Culture Dysuria,urgency,freq; WBC/HPF Greater than 50 HPF (0-3)
[2023-05-05 23:42] LABS: Bacteria/HPF 1+ HPF (None Seen); Squamous Epithelial 0-3 HPF (0-3); Yeast-Budding 3+ HPF (None Seen)
[2023-05-05 23:43] LABS: Urine Culture Reflex Yes Yes
== END 2023-05-06 02:17 | disposition home or self-care (01) ==
LOC: ERS 20:20
DX: E11.65 Type 2 diabetes mellitus with hyperglycemia (principal); I10 Essential (primary) hypertension; F17.210 Nicotine dependence, cigarettes, uncomplicated; Z79.899 Other long term (current) drug therapy; Z79.4 Long term (current) use of insulin; Z79.82 Long term (current) use of aspirin
CPT/HCPCS: 36415; 36416; 71045; 80053; 81001; 82010; 82805; 83735; 83930; 84484; 85025; 87086; 93005; 94760; 96374; J1815